=== PATIENT | male | born 1940 | race Hispanic/Latino ===

== ENCOUNTER → 2019-04-23 | Outpatient (CLI) | payer MEDICARE, OTHER ==
[~2019-04-23] MED LIST: FLOMAX0.4 MG PO; OMEPRAZOLE40 MG PO
--- NOTE | 2019-04-23 20:06 | Diagnostic Imaging Report ---
Solid-phase gastric emptying study Reason for examination: K14.0 Abdominal bloating The protocol used for this study is based on the Consensus Recommendations for Gastric Scintigraphy by the [place] [employer] and the Society of [employer]. Clinical information: The patient is not diabetic. The patient has not had previous gastrointestinal surgery other than cholecystectomy in 2016. The patient is not on any medications expected to affect gastric motility. The patient has been fasting for at least 6 hours prior to this exam. Radiopharmaceutical: Tc-99m sulfur colloid 1 mCi Report: The radiopharmaceutical was added to 1/2 cup egg whites that were then prepared and served with 2 pieces of white bread toasted, 30 grams of jam and 4 ounces of water. The patient took 90% of the meal. Images were obtained of the abdomen in the anterior and posterior projections at 10 minutes post the meal and at 2 and 3 hours. Uptake was determined from the geometric mean of the anterior and posterior counts and the counts were corrected for decay of the radiolabel. The percent gastric retention of the labeled meal at: 1 hour measurement was not obtained due to technical issues but presumably greater than 30% based on the 2-hour measurement. 2 hours was 30% (normal <60%) 3 hours was 3% (normal <30%) 4 hour measurement not obtained because gastric retention was less than 10% at 3 hours. Impression: The pattern of gastric emptying is normal. The findings do not support the clinical diagnosis of gastroparesis. Signed by: Dr. Lorena Enamorado M.D. on 04/23/2019 8:03 PM
== END ==
LOC: NM 08:44
PROVIDERS: ATTEND Internal Medicine Gastroenterology
DX: R10.13 Epigastric pain (principal); R14.0 Abdominal distension (gaseous); I10 Essential (primary) hypertension; Z71.3 Dietary counseling and surveillance; F17.200 Nicotine dependence, unspecified, uncomplicated
CPT/HCPCS: 78264; A9541

== ENCOUNTER 2019-05-13 16:41 | Inpatient (IN) | payer MEDICARE, OTHER ==
[~2019-05-13] VITALS: Ht 165.1 cm; Wt 71.2 kg
[~2019-05-13 16:41] MED LIST changes: +AMLODIPINE PO; +ASPIR 8181 MG PO; +ATORVASTATIN CA20 MG PO; +BACLOFEN10 MG PO; +DECARA25000 UNIT PO; +GABAPENTIN300 MG PO; +LOSARTAN POTAS100 MG PO; +LYRICA100 MG PO; +LYRICA50 MG PO; +METHOTREXATE2.5 MG PO; +PANTOPRAZOLE SO40 MG PO; +PREDNISONE5 MG PO; +RANITIDINE HCL300 MG PO; +TYLENOL WITH C1 EACH PO
--- OUTSIDE RECORDS SUMMARY | 2019-05-13 16:51 | XMS REPORT | Clinical Summary ---
Author Author [facility] Address Unknown Phone Unavailable Care Team Providers Care Customer Project Manager Name Role Phone Kartik Mary MD PCP Allergies No Known Allergies Medications End Date Status Medication Sig Dispensed Refills Start Date Active amLODIPine (NORVASC) 5 MG TK 1 T PO QD 3 tablet 6 Active atorvastatin (LIPITOR) 20 TK 1 T PO 5 MG tablet ONCE D 6 Active tamsulosin (FLOMAX) 0.4 TK 1 C PO D 3 mg capsule,extended 6 release 24hr Active SPIRIVA RESPIMAT 2.5 INHALE 2 5 mcg/actuation mist PUFFS ONCE D 6 Active sucralfate (CARAFATE) 1 Take 1 tablet 0 gram tablet by mouth 4 6 (four) times a day. Active losartan (COZAAR) 100 MG Take 100 mg 0 tablet by mouth daily. Active pantoprazole (PROTONIX) TK 1 T PO D 1 40 MG EC tablet 7 Active DECARA 50,000 unit TK 1 C PO 3 capsule 3 capsuleIndications: ONCE A MONTH 7 Lumbar spondylosis with myelopathy, Neuropathy, Rheumatoid arthritis involving multiple sites with positive rheumatoid factor (HCC), Encounter for monitoring of methotrexate therapy, Pulmonary interstitial fibrosis (HCC), Arterial insufficiency of lower extremity (HCC) Active baclofen (LIORESAL) 10 MG TAKE 1 TO 2 180 tablet 0 tabletIndications: TABLETS BY 8 Rheumatoid arthritis MOUTH involving multiple sites NEEDED FOR with positive rheumatoid MUSCLE SPASMS factor (HCC), Encounter for monitoring of methotrexate therapy, Pulmonary interstitial fibrosis (HCC), Epigastric pain, Weight loss, Poor appetite, Neuropathy, Lumbar spondylosis with myelopathy, Arterial insufficiency of lower extremity (HCC), Bilateral hip joint arthritis, Sacroiliac joint pain, Claudication of calf muscles (HCC), Bilateral primary osteoarthritis of hip Active acetaminophen-codeine Take 1 tablet 120 tablet 2 (TYLENOL WITH CODEINE #3) by mouth 8 300-30 mg per every 6 (six) tabletIndications: hours as Rheumatoid arthritis needed for involving multiple sites moderate pain with positive rheumatoid for up to 90 factor (HCC), Encounter days. for monitoring of methotrexate therapy, Pulmonary interstitial fibrosis (HCC), Epigastric pain, Weight loss, Poor appetite, Neuropathy, Lumbar spondylosis with myelopathy, Arterial insufficiency of lower extremity (HCC), Bilateral hip joint arthritis, Sacroiliac joint pain, Claudication of calf muscles (HCC), Bilateral primary osteoarthritis of hip Active methotrexate 2.5 MG 6 tabs weekly 0 tablet every Sunday Active albuterol (PROAIR Inhale 2 0 HFA,PROVENTIL puffs every 6 HFA,VENTOLIN HFA) 90 (six) hours mcg/actuation inhaler as needed for wheezing. Active acetaminophen-codeine TK 1 T PO Q 2 (TYLENOL WITH CODEINE #3) 6 H PRN P 9 300-30 mg per tablet Active predniSONE (DELTASONE) 20 Take 20 mg by 0 mg tablet mouth 2 (two) 9 times a day. For 5 days 06/10/2019 Active megestrol (MEGACE) 400 SHAKE LIQUID 300 mL 0 mg/10 mL (40 mg/mL) AND TAKE 10 9 suspensionIndications: ML(400 MG) BY Rheumatoid arthritis MOUTH DAILY involving multiple sites with positive rheumatoid factor (HCC), Encounter for monitoring of methotrexate therapy, Pulmonary interstitial fibrosis (HCC), Epigastric pain, Weight loss, Poor appetite, Neuropathy Active LYRICA 100 mg capsule TK 1 C PO BID 2 9 Active LINZESS 145 mcg capsule TK ONE C PO 3 QD 30 MINUTES 9 PRIOR TO FIRST MEAL. Active aspirin (ECOTRIN) 81 MG TK 1 T PO QD 2 enteric coated tablet 9 05/01/2019 Discontinued aspirin 81 mg chewable Chew 81 mg 0 tablet daily. 07/17/2018 meloxicam (MOBIC) 15 mg Take 1 tablet 30 tablet 0 tablet (15 mg total) 7 by mouth daily. 01/22/2019 Discontinued calcium citrate-vitamin Take 1 tablet 0 D3 (CITRACAL+D) 315-200 by mouth 2 mg-unit per tablet (two) times a day. 01/14/2019 Discontinued megestrol (MEGACE) 40 MG Take 40 mg by 0 tablet mouth daily. 07/31/2018 Discontinued fluticasone (FLONASE) 50 2 sprays by 0 mcg/actuation nasal spray Each Nare route daily. 07/31/2018 Discontinued nabumetone (RELAFEN) 750 Take 1 tablet 60 tablet 11 MG tablet (750 mg 7 total) by mouth 2 (two) times a day. 07/31/2018 Discontinued megestrol (MEGACE) 400 daily. 1 mg/10 mL (40 mg/mL) 7 suspension 07/31/2018 Discontinued omega 4-sah-jap-fish oil Take 1,200 mg 90 capsule 1 1,200 (144-216) mg by mouth 7 capsuleIndications: daily. Rheumatoid arthritis involving multiple sites with positive rheumatoid factor (HCC), Bilateral hip joint arthritis, Encounter for monitoring of methotrexate therapy, Sacroiliac joint pain, Claudication of calf muscles (HCC), Arterial insufficiency of lower extremity (HCC) 06/06/2018 Discontinued celecoxib (CeleBREX) 100 Take 1 180 capsule 0 MG capsuleIndications: capsule (100 8 Rheumatoid arthritis mg total) by involving multiple sites mouth every with positive rheumatoid 12 (twelve) factor (HCC), Bilateral hours as primary osteoarthritis of needed for hip, Arterial mild pain for insufficiency of lower up to 90 extremity (HCC), days. Bilateral hip joint arthritis 06/25/2018 Discontinued methotrexate 2.5 MG Take 6 tabs 72 tablet 0 tabletIndications: weekly . 8 Rheumatoid arthritis involving multiple sites with positive rheumatoid factor (HCC), Encounter for monitoring of methotrexate therapy, Neuropathy, Lumbar spondylosis with myelopathy, Pulmonary interstitial fibrosis (HCC), Arterial insufficiency of lower extremity (HCC), Bilateral hip joint arthritis, Sacroiliac joint pain, Claudication of calf muscles (HCC), Bilateral primary osteoarthritis of hip 06/25/2018 Discontinued acetaminophen-codeine Take 1 tablet 120 tablet 2 (TYLENOL WITH CODEINE #3) by mouth 8 300-30 mg per every 6 (six) tabletIndications: hours as Rheumatoid arthritis needed for involving multiple sites moderate pain with positive rheumatoid for up to 90 factor (HCC), Encounter days. for monitoring of methotrexate therapy, Pulmonary interstitial fibrosis (HCC), Epigastric pain, Weight loss, Poor appetite, Neuropathy, Lumbar spondylosis with myelopathy, Arterial insufficiency of lower extremity (HCC), Bilateral hip joint arthritis, Sacroiliac joint pain, Claudication of calf muscles (HCC), Bilateral primary osteoarthritis of hip 01/22/2019 Discontinued folic acid (FOLVITE) 1 MG Take 2 180 tablet 3 tabletIndications: tablets (2 mg 8 Rheumatoid arthritis total) by involving multiple sites mouth once with positive rheumatoid daily. factor (HCC), Encounter for monitoring of methotrexate therapy, Pulmonary interstitial fibrosis (HCC), Epigastric pain, Weight loss, Poor appetite, Neuropathy, Lumbar spondylosis with myelopathy, Arterial insufficiency of lower extremity (HCC), Bilateral hip joint arthritis, Sacroiliac joint pain, Claudication of calf muscles (HCC), Bilateral primary osteoarthritis of hip 06/27/2018 Discontinued megestrol (MEGACE) 400 SHAKE LIQUID 300 mL 0 mg/10 mL (40 mg/mL) AND TAKE 10 8 suspensionIndications: ML(400 MG) BY Rheumatoid arthritis MOUTH DAILY involving multiple sites with positive rheumatoid factor (HCC), Encounter for monitoring of methotrexate therapy, Pulmonary interstitial fibrosis (HCC), Epigastric pain, Weight loss, Poor appetite, Neuropathy 07/28/2018 Discontinued methotrexate 2.5 MG TAKE 6 72 tablet 0 tabletIndications: TABLETS BY 8 Rheumatoid arthritis MOUTH WEEKLY involving multiple sites with positive rheumatoid factor (HCC), Encounter for monitoring of methotrexate therapy, Neuropathy, Lumbar spondylosis with myelopathy, Pulmonary interstitial fibrosis (HCC), Arterial insufficiency of lower extremity (HCC), Bilateral hip joint arthritis, Sacroiliac joint pain, Claudication of calf muscles (HCC) 01/14/2019 Discontinued celecoxib (CeleBREX) 100 TAKE ONE 180 capsule 0 MG capsuleIndications: CAPSULE BY 8 Rheumatoid arthritis MOUTH EVERY involving multiple sites 12 HOURS with positive rheumatoid NEEDED FOR factor (HCC), Bilateral MILD PAIN FOR primary osteoarthritis of UP TO 90 DAYS hip, Arterial insufficiency of lower extremity (HCC), Bilateral hip joint arthritis 07/28/2018 megestrol (MEGACE) 400 SHAKE LIQUID 300 mL 0 mg/10 mL (40 mg/mL) AND TAKE 10 8 suspensionIndications: ML(400 MG) BY Rheumatoid arthritis MOUTH DAILY involving multiple sites with positive rheumatoid factor (HCC), Encounter for monitoring of methotrexate therapy, Pulmonary interstitial fibrosis (HCC), Epigastric pain, Weight loss, Poor appetite, Neuropathy 09/18/2018 Discontinued pregabalin (LYRICA) 75 MG Take 1 270 capsule 0 capsule capsule (75 8 mg total) by mouth 3 (three) times a day for 90 days. 07/31/2018 Discontinued methotrexate 2.5 MG TAKE 6 72 tablet 0 tabletIndications: TABLETS BY 8 Rheumatoid arthritis MOUTH WEEKLY involving multiple sites with positive rheumatoid factor (HCC), Encounter for monitoring of methotrexate therapy, Neuropathy, Lumbar spondylosis with myelopathy, Pulmonary interstitial fibrosis (HCC), Arterial insufficiency of lower extremity (HCC), Bilateral hip joint arthritis, Sacroiliac joint pain, Claudication of calf muscles (HCC) 07/31/2018 Discontinued methotrexate 2.5 MG TAKE 6 72 tablet 0 tabletIndications: TABLETS BY 8 Rheumatoid arthritis MOUTH WEEKLY involving multiple sites with positive rheumatoid factor (HCC), Encounter for monitoring of methotrexate therapy, Neuropathy, Lumbar spondylosis with myelopathy, Pulmonary interstitial fibrosis (HCC), Arterial insufficiency of lower extremity (HCC), Bilateral hip joint arthritis, Sacroiliac joint pain, Claudication of calf muscles (HCC) 03/17/2019 pregabalin (LYRICA) 100 Take 1 60 capsule 5 MG capsule capsule (100 8 mg total) by mouth 2 (two) times a day for 180 days. 03/10/2019 Discontinued megestrol (MEGACE) 400 SHAKE LIQUID 300 mL 0 mg/10 mL (40 mg/mL) AND TAKE 10 8 suspensionIndications: ML(400 MG) BY Rheumatoid arthritis MOUTH DAILY involving multiple sites with positive rheumatoid factor (HCC), Encounter for monitoring of methotrexate therapy, Pulmonary interstitial fibrosis (HCC), Epigastric pain, Weight loss, Poor appetite, Neuropathy 10/26/2018 azithromycin (ZITHROMAX Take 2 6 tablet 0 Z-TRELL) 250 MG tablet tablets the 8 first day, then 1 tablet daily for 4 days. 10/27/2018 methylPREDNISolone follow 21 tablet 0 (MEDROL, TRELL,) 4 mg package 8 tablet directions 11/21/2018 albuterol (PROAIR Inhale 2 1 Inhaler 0 HFA,PROVENTIL puffs every 4 8 HFA,VENTOLIN HFA) 90 (four) hours mcg/actuation inhaler as needed for wheezing for up to 30 days. Please dispense with a spacer 02/08/2019 Discontinued levoFLOXacin (LEVAQUIN) Take 750 mg 0 750 MG tablet by mouth 9 daily. X 14 days 02/15/2019 metroNIDAZOLE (FLAGYL) Take 1 tablet 14 tablet 0 500 MG tablet (500 mg 9 total) by mouth 2 (two) times a day for 7 days. 02/15/2019 ciprofloxacin (CIPRO) 500 Take 1 tablet 14 tablet 0 MG tablet (500 mg 9 total) by mouth 2 (two) times a day for 7 days. Active Problems Problem Noted Date Atheroscler of [place] artery of both legs with intermit claudication 01/22/2019 Atherosclerosis of [place] artery of both lower extremities with 12/24/2018 intermittent claudication Overview: Added automatically from request for surgery [id number] Other chronic pain 12/21/2017 Claudication of calf muscles 09/25/2017 PAD (peripheral artery disease) 09/25/2017 Myalgia 08/21/2017 Bilateral primary osteoarthritis of hip 08/02/2017 Bilateral hip pain 08/02/2017 [place] speaking patient 08/02/2017 Non-[place]amib[place] speaking patient 08/02/2017 Bilateral hip joint arthritis 07/31/2017 Sacroiliac joint pain 07/31/2017 Lumbar spondylosis with myelopathy 03/19/2017 Poor appetite 03/19/2017 Sensory neuropathy 03/19/2017 Weight loss 10/06/2016 Epigastric pain 10/06/2016 Rheumatoid arthritis involving multiple sites with positive rheumatoid 06/02/2016 factor Encounter for monitoring of methotrexate therapy 06/02/2016 Arterial insufficiency of lower extremity 06/02/2016 Pulmonary interstitial fibrosis 06/02/2016 Cigarette smoker 06/02/2016 Bilateral lumbar radiculopathy Idiopathic progressive polyneuropathy Encounters Care Team Description Date Type Specialty Donaldo Willams MD Chronic bilateral low back pain with left-sided sciatica 05/05/2019 Hospital Radiology Encounter Donaldo Willams MD Chronic bilateral low back pain with left-sided sciatica (Primary Dx); PAD (peripheral artery disease) (HCC) 05/01/2019 Office Visit Cardiovascular Selwyn Black MD Neuropathy (Primary Dx) 04/24/2019 Transcribe Neurology Orders Iron Blackburn MA 04/15/2019 Telephone Cardiovascular Chaparrita Lopez MD Rheumatoid arthritis involving multiple sites with positive rheumatoid factor (HCC); Encounter for monitoring of methotrexate therapy; Pulmonary interstitial fibrosis (HCC); Epigastric pain; Weight loss; Poor appetite; Neuropathy 03/10/2019 Refill Rheumatology Ashwini Soria 02/27/2019 Telephone Physical Therapy Abimbola Morillo MD Degeneration of lumbar intervertebral disc (Primary Dx) 02/27/2019 Transcribe Physical Therapy Orders Chaparrita Lopez MD 02/18/2019 Refill Rheumatology Chaparrita Lopez MD 02/13/2019 Refill Rheumatology Axel Rivera MD Colitis (Primary Dx); Pain in both lower legs; Claudication of both lower extremities (HCC) 02/08/2019 Emergency Emergency Medicine Margarito Billingsley NP Bismuth, Jean, MD PAD (peripheral artery disease) ([facility]); Atherosclerosis of [place] artery of both lower extremities with intermittent claudication (HCC) 02/07/2019 Hospital Radiology Encounter Margarito Billingsley NP Bismuth, Jean, MD Pain and swelling of lower leg, right 02/07/2019 Hospital Radiology Encounter Margarito Billingsley NP PAD (peripheral artery disease) ([facility]) (Primary Dx); Atherosclerosis of [place] artery of both lower extremities with intermittent claudication ([facility]); Pain and swelling of lower leg, right; Claudication of calf muscles (HCC) 02/07/2019 Office Visit Cardiovascular Kristine Adan MA Atherosclerosis of [place] artery of both lower extremities with intermittent claudication (HCC) (Primary Dx); PAD (peripheral artery disease) (HCC) 02/07/2019 Orders Only Cardiovascular Kristine Adan MA PAD (peripheral artery disease) ([facility]) (Primary Dx); Atherosclerosis of [place] artery of both lower extremities with intermittent claudication (HCC) 02/07/2019 Orders Only Cardiovascular Donaldo Willams MD 01/22/2019 Office Visit General Surgery Abbe Walker Jr., MD 01/22/2019 Anesthesia General Surgery Event Donaldo Willams MD LEFT LOWER EXTREMITY ANGIOGRAM WITH SFA, POPLITEAL, AND ILIAC RECANALIZATION AND STENTING 01/22/2019 Surgery General Surgery Donaldo Willams MD 01/22/2019 Office Visit General Surgery Donaldo Willams MD Atherosclerosis of [place] artery of both lower extremities with intermittent claudication (HCC) 01/22/2019 Hospital General Surgery Encounter Donaldo Willams MD Atherosclerosis of [place] artery of both lower extremities with intermittent claudication (HCC) 01/21/2019 Pre-Admit Pre-Admission Testing Testing Appointment Abimbola Morillo MD Age-related osteoporosis without current pathological fracture 01/20/2019 Hospital Radiology Encounter Elham Francisco FNP-C 01/14/2019 Anesthesia Gastroenterology Event Lino Domínguez MD BRONCHOSXOPY with bronchial lavage and biopys 01/14/2019 Surgery Gastroenterology Lino Domínguez MD Atelectasis of right lung (Primary Dx); Chronic pneumonia; Pneumonia 01/14/2019 Hospital Gastroenterology Encounter Althea Flores MD Sensory neuropathy (Primary Dx) 01/13/2019 Office Visit Neurology Abimbola Morillo MD Seropositive rheumatoid arthritis (HCC) 01/10/2019 Hospital Radiology Encounter Abimbola Morillo MD Seropositive rheumatoid arthritis (HCC) 01/10/2019 Hospital Radiology Encounter Abimbola Morillo MD Seropositive rheumatoid arthritis (HCC) 01/10/2019 Hospital Radiology Encounter Abimbola Morillo MD Seropositive rheumatoid arthritis (HCC) 01/10/2019 Hospital Radiology Encounter Abimbola Morillo MD Seropositive rheumatoid arthritis (HCC) (Primary Dx) 01/10/2019 Transcribe Radiology Orders Amirah Gamez, KRAIG 12/25/2018 Telephone Cardiovascular Amirah Gamez, RN Atherosclerosis of [place] artery of both lower extremities with intermittent claudication (HCC) (Primary Dx) 12/24/2018 Prep for Cardiovascular Surgery Amirah Gamez, RN Atherosclerosis of [place] artery of both lower extremities with intermittent claudication (HCC) (Primary Dx) 12/24/2018 Orders Only Cardiovascular Lino Domínguez MD Aspiration pneumonia, unspecified aspiration pneumonia type, unspecified laterality, unspecified part of lung (HCC) 12/20/2018 Hospital Radiology Encounter Donaldo Willams MD PAD (peripheral artery disease) ([facility]) (Primary Dx) 12/19/2018 Office Visit Cardiovascular Iron Blackburn MA 12/09/2018 Telephone Cardiovascular Donaldo Willams MD PAD (peripheral artery disease) ([facility]); Atherosclerosis of [place] artery of both lower extremities with intermittent claudication (HCC) 11/29/2018 Hospital Radiology Encounter Lino Domínguez MD Obstructive chronic bronchitis without exacerbation (HCC) 11/29/2018 Hospital Radiology Encounter Lino Domínguez MD Obstructive chronic bronchitis without exacerbation (HCC) (Primary Dx); Aspiration pneumonia, unspecified aspiration pneumonia type, unspecified laterality, unspecified part of lung (HCC) 11/29/2018 Transcribe Access Orders Donaldo Willams MD Atherosclerosis of [place] artery of both lower extremities with intermittent claudication (HCC) (Primary Dx); PAD (peripheral artery disease) ([facility]) 11/28/2018 Office Visit Cardiovascular Kristine Adan MA Atherosclerosis of [place] artery of both lower extremities with intermittent claudication (HCC) (Primary Dx); PAD (peripheral artery disease) ([facility]) 11/28/2018 Orders Only Cardiovascular Donaldo Willams MD 11/28/2018 Abstract Cardiovascular Kristine Adan MA Atherosclerosis of [place] artery of both lower extremities with intermittent claudication ([facility]) (Primary Dx); PAD (peripheral artery disease) ([facility]) 11/26/2018 Orders Only Cardiovascular Amirah Gamez RN 11/07/2018 Telephone Cardiovascular Althea Flores MD PAD (peripheral artery disease) ([facility]) (Primary Dx); Sensory neuropathy; Myalgia 10/25/2018 Office Visit Neurology Carolyn Shirley DO Hypertension, unspecified type (Primary Dx); Acute pneumonitis; COPD exacerbation ([facility]); Nonintractable headache, unspecified chronicity pattern, unspecified headache type 10/22/2018 Emergency Emergency Medicine - 10/23/2018 10/22/2018 Travel Chaparrita Lopez MD Rheumatoid arthritis involving multiple sites with positive rheumatoid factor ([facility]); Encounter for monitoring of methotrexate therapy; Pulmonary interstitial fibrosis ([facility]); Epigastric pain; Weight loss; Poor appetite; Neuropathy 10/18/2018 Refill Rheumatology Althea Flores MD Sensory neuropathy 10/07/2018 Hospital Radiology Encounter Althea Flores MD Sensory neuropathy (Primary Dx) 09/18/2018 Office Visit Neurology Althea Flores MD Myalgia (Primary Dx); Neuropathy 09/05/2018 Procedure visit Neurology Althea Flores MD Neuropathy (Primary Dx) 07/31/2018 Office Visit Neurology Chaparrita Lopez MD Rheumatoid arthritis involving multiple sites with positive rheumatoid factor; Encounter for monitoring of methotrexate therapy; Neuropathy; Lumbar spondylosis with myelopathy; Pulmonary interstitial fibrosis; Arterial insufficiency of lower extremity; Bilateral hip joint arthritis; Sacroiliac joint pain; Claudication of calf muscles 07/28/2018 Refill Rheumatology Catherine Odom MA 07/12/2018 Refill Rheumatology Chaparrita Lopez MD Rheumatoid arthritis involving multiple sites with positive rheumatoid factor; Encounter for monitoring of methotrexate therapy; Lumbar spondylosis with myelopathy; Neuropathy 06/29/2018 Hospital Radiology Encounter Chaparrita Lopez MD Rheumatoid arthritis involving multiple sites with positive rheumatoid factor; Encounter for monitoring of methotrexate therapy; Lumbar spondylosis with myelopathy; Neuropathy 06/29/2018 Hospital Radiology Encounter Chaparrita Lopez MD Rheumatoid arthritis involving multiple sites with positive rheumatoid factor; Encounter for monitoring of methotrexate therapy; Pulmonary interstitial fibrosis; Epigastric pain; Weight loss; Poor appetite; Neuropathy 06/27/2018 Refill Rheumatology Chaparrita Lopez MD Rheumatoid arthritis involving multiple sites with positive rheumatoid factor (Primary Dx); Encounter for monitoring of methotrexate therapy; Weight loss; Lumbar spondylosis with myelopathy; Neuropathy; Myalgia; Claudication of calf muscles; PAD (peripheral artery disease); Pulmonary interstitial fibrosis; Epigastric pain; Poor appetite; Arterial insufficiency of lower extremity; Bilateral hip joint arthritis; Sacroiliac joint pain; Bilateral primary osteoarthritis of hip 06/25/2018 Office Visit Rheumatology Chaparrita Lopez MD Rheumatoid arthritis involving multiple sites with positive rheumatoid factor; Bilateral primary osteoarthritis of hip; Arterial insufficiency of lower extremity; Bilateral hip joint arthritis 06/06/2018 Refill Rheumatology Catherine Odom MA Seropositive rheumatoid arthritis of multiple sites (Primary Dx); Idiopathic progressive polyneuropathy; Primary osteoarthritis of both hips; Intermittent claudication 05/16/2018 Orders Only Rheumatology Catherine Odom MA 05/15/2018 Telephone Rheumatology after 05/12/2018 Family History Medical History Relation Name Comments Cancer Brother throat ca Hypertension Father Stroke Father Cancer Mother Hypertension Mother Relation Name Status Comments Brother Father Mother Social History Date Tobacco Use Types Packs/Day Years Used Current Every Day Smoker Cigarettes 0.5 50 Smokeless Tobacco: Current User Tobacco Cessation: Ready to Quit: Yes; Counseling Given: Yes Alcohol Use Drinks/Week oz/Week Comments No Alcohol Habits Answer Date Recorded How often do you have a drink containing alcohol? Never 01/13/2019 How many drinks containing alcohol do you have on Not asked a typical day when you are drinking? How often do you have six or more drinks on one Not asked occasion? Sex Assigned at Date Recorded Not on file Industry Job Start Date Occupation Not on file Not on file Not on file Travel End Travel History Travel Start No recent travel history available. Last Filed Vital Signs Time Taken Vital Sign Reading 05/01/2019 10:36 AM CDT Blood Pressure 137/62 05/01/2019 10:36 AM CDT Pulse 66 02/08/2019 7:30 PM CDT Temperature 36.8 C (98.2 F) 05/01/2019 10:36 AM CDT Respiratory Rate 20 05/01/2019 10:36 AM CDT Oxygen Saturation 100% - Inhaled Oxygen - Concentration 05/05/2019 5:03 PM CDT Weight 66.7 kg (147 lb) 02/08/2019 2:52 PM CDT Height 157.5 cm (5' 2") 02/08/2019 2:52 PM CDT Body Mass Index 26.89 Plan of Treatment Care Team Description Date [place] [address] [facility] [address] [place] [address] [phone] 05/16/2019 [place] [address] [facility] [address] [place] [address] [phone] 05/19/2019 Office [place] [address] [facility] [address] [place] [address] [phone] Nicolas Krishnan PT 05/20/2019 Office Visit Physical Therapy Health Maintenance Due Date Last Done Comments SHINGLES VACCINES (#1) 1988 65+ PNEUMOCOCCAL VACCINE 2003 (1 of 2 - PCV13) INFLUENZA VACCINE 06/05/2019 Implants Device Identifier Shelf Expiration Date Model / Serial / Lot Implanted Type Area Manufactur er 11/28/2019 [id number] / / [id number] Stent [employer] Eluted 6fr 6 Surgical N/A: N/A COOK X 140mm 0.035in - [id number] Stents PERIPHERAL Implanted: Qty: 1 on 01/22/2019 by Donaldo Barraza MD ON 05/06/2020 [id number] / / [id number] Stent [employer] Eluted 6fr 6 X Surgical N/A: N/A COOK 100mm .035in - [id number] Stents PERIPHERAL Implanted: Qty: 1 on 01/22/2019 by Donaldo Barraza MD ON 12/05/2019 [id number] / / [id number] Stent [employer] Eluted 6fr 8 X Surgical N/A: N/A COOK 60mm .035in - [id number] Stents PERIPHERAL Implanted: Qty: 1 on 01/22/2019 by Donaldo Barraza MD ON Procedures Comments Procedure Name Priority Date/Time Associated Diagnosis MRI LUMBAR SPINE W WO Routine 05/05/2019 Chronic bilateral low CONTRAST 5:55 PM CDT back pain with left-sided sciatica POC CREATININE Routine 05/05/2019 5:04 PM CDT ESTIMATED GFR Routine 05/05/2019 5:04 PM CDT EMG Routine 04/24/2019 Neuropathy 4:[address] ANGIOGRAM ABDOMINAL STAT 02/08/2019 AORTA AND BILATERAL 4:35 PM CDT ILIOFEMORAL RUNOFF W WO CONTRAST ESTIMATED GFR STAT 02/08/2019 3:25 PM CDT COMPREHENSIVE METABOLIC STAT 02/08/2019 PANEL 3:25 PM CDT HC COMPLETE BLD COUNT STAT 02/08/2019 W/AUTO DIFF 3:25 PM CDT US DUPLEX ARTERIAL LOWER STAT 02/07/2019 PAD (peripheral artery EXTREMITY BILATERAL 4:00 PM CDT disease) (HCC) Atherosclerosis of [place] artery of both lower extremities with intermittent claudication (HCC) US DUPLEX VENOUS LOWER STAT 02/07/2019 Pain and swelling of EXTREMITY RIGHT 4:00 PM CDT lower leg, right CV HYBRID OR FLUOROSCOPY Routine 01/22/2019 12:09 PM CDT ACTIVATED CLOTTING TIME Routine 01/22/2019 10:46 AM CDT ARTERIAL LINE Routine 01/22/2019 10:44 AM CDT Procedure Note - Tanisha Mancia MD - 01/22/2019 10:44 AM CDT Arterial line Performed by: Tanisha Mancia MD Authorized by: Tanisha Mancia MD Patient Location: OR Start Time: 01/22/2019 10:36 AM End Time: 01/22/2019 10:38 AM Staff: Anesthesio logist: Tanisha Mancia MD Other Staff: Felicita Mathew Performed by: Anesthesio logist Pre-proced ure: patient identified , IV checked, site and side verified, risks and benefits discussed, procedure verified, surgical consent complete, patient position confirmed, monitors and equipment checked and pre-op evaluation complete MSBT: antiseptic used, all elements of maximal sterile barrier technique followed, hand hygiene performed, cap/gown used by other personnel and solutions labeled Indication s: Indication s: multiple ABGs and hemodynami c monitoring Anesthesia : Anesthesia : General Procedure Details: Arterial Line placement: Placed pre-induct ion Line placement site: Radial Line placement side: Right Arterial line gauge: 20 G Number of attempts: 1 Ultrasound guidance used: Yes Post-proc edure: Post-proce dure: Sterile dressing applied Post procedure circulatio n, sensation, movement: Normal Patient tolerance: Patient tolerated the procedure well with no immediate complicati ons SD AN ELECTIVE Routine 01/22/2019 ENDOTRACHEAL AIRWAY 10:43 AM CDT Procedure Note - Tanisha Mancia MD - 01/22/2019 10:43 AM CDT Airway Date/Time: 01/22/2019 10:33 AM Performed by: Tanisha Mancia MD Authorized by: Tanisha Mancia MD Location: OR Urgency: Elective Difficult Airway: No Anesthesio logist: Tanisha Mancia MD Resident/C RNA/AA: Jani Boswell CRNA Other Anesthesia Staff: Felicita Mathew Performed by: anesthesio logist Preoxygena danny with 100% O2: Yes C-spine Precaution s Maintained Throughout : Yes Mask Ventilatio n: Easy mask Final Airway Type: Endotrache al airway Final Endotrache al Airway: ETT Cuffed: Yes Technique Used: Direct laryngosco py Devices/Me thods Used in Placement: Intubatin g stylet Insertion Site: Oral Blade Type: Nathan Laryngosco pe Blade/Vide olaryngosc ope Blade Size: 2 ETT Size (mm): 7.0 Cuff at minimum occlusion pressure: Yes Measured from: Gums ETT to Gums (cm): 23 Placement Verified by: CO2 detection Laryngosc opic view: Grade I - full view of glottis Rapid Sequence Induction (RSI): No Modified RSI: No Number of Attempts at Approach: 1 atraumati c ACTIVATED CLOTTING TIME Routine 01/22/2019 10:36 AM CDT ACTIVATED CLOTTING TIME Routine 01/22/2019 10:27 AM CDT POC BLOOD GAS, ARTERIAL Routine 01/22/2019 AND LYTES 9:54 AM CDT ACTIVATED CLOTTING TIME Routine 01/22/2019 9:43 AM CDT CV HYBRID OR FLUOROSCOPY Routine 01/22/2019 9:37 AM CDT PREPARE RBC Routine 01/21/2019 1:15 PM CDT TYPE AND SCREEN Routine 01/21/2019 Atherosclerosis of [place] 1:15 PM CDT artery of both lower extremities with intermittent claudication (HCC) ESTIMATED GFR Routine 01/21/2019 1:15 PM CDT HC COMPLETE BLD COUNT Routine 01/21/2019 Atherosclerosis of [place] W/AUTO DIFF 1:15 PM CDT artery of both lower extremities with intermittent claudication (HCC) BASIC METABOLIC PANEL Routine 01/21/2019 Atherosclerosis of [place] 1:15 PM CDT artery of both lower extremities with intermittent claudication (HCC) PROTHROMBIN TIME WITH INR Routine 01/21/2019 Atherosclerosis of [place] 1:15 PM CDT artery of both lower extremities with intermittent claudication (HCC) PARTIAL THROMBOPLASTIN Routine 01/21/2019 Atherosclerosis of [place] TIME (PTT) 1:15 PM CDT artery of both lower extremities with intermittent claudication (HCC) URINE CULTURE Routine 01/21/2019 1:00 PM CDT URINALYSIS SCREEN AND Routine 01/21/2019 Atherosclerosis of [place] MICROSCOPY, WITH REFLEX 12:36 PM CDT artery of both lower TO CULTURE extremities with intermittent claudication (HCC) BONE DENSITY Routine 01/20/2019 Age-related osteoporosis 11:02 AM CDT without current pathological fracture BAL CELL COUNT AND Timed 01/14/2019 Pneumonia DIFFERENTIAL 8:55 AM CDT RESPIRATORY CULTURE Timed 01/14/2019 8:55 AM CDT GRAM STAIN Timed 01/14/2019 8:55 AM CDT RESPIRATORY PATHOGEN Timed 01/14/2019 PANEL 8:55 AM CDT FUNGUS SMEAR Timed 01/14/2019 Pneumonia 8:55 AM CDT AFB CULTURE Timed 01/14/2019 Pneumonia 8:55 AM CDT NOCARDIA CULTURE Timed 01/14/2019 Pneumonia 8:55 AM CDT LEGIONELLA CULTURE Timed 01/14/2019 Pneumonia 8:55 AM CDT AFB STAIN Timed 01/14/2019 Pneumonia 8:55 AM CDT FUNGUS CULTURE Timed 01/14/2019 Pneumonia 8:55 AM CDT SURGICAL PATHOLOGY Routine 01/14/2019 REQUEST 8:50 AM CDT CYTOLOGY Routine 01/14/2019 (NON-GYNECOLOGICAL) 8:50 AM CDT REQUEST BAL CELL COUNT AND Timed 01/14/2019 Pneumonia DIFFERENTIAL 8:50 AM CDT GRAM STAIN Timed 01/14/2019 8:50 AM CDT RESPIRATORY CULTURE Timed 01/14/2019 8:50 AM CDT RESPIRATORY PATHOGEN Timed 01/14/2019 PANEL 8:50 AM CDT FUNGUS SMEAR Timed 01/14/2019 Pneumonia 8:50 AM CDT AFB CULTURE Timed 01/14/2019 Pneumonia 8:50 AM CDT NOCARDIA CULTURE Timed 01/14/2019 Pneumonia 8:50 AM CDT LEGIONELLA CULTURE Timed 01/14/2019 Pneumonia 8:50 AM CDT AFB STAIN Timed 01/14/2019 Pneumonia 8:50 AM CDT FUNGUS CULTURE Timed 01/14/2019 Pneumonia 8:50 AM CDT XR CHEST 1 VW PORTABLE STAT 01/14/2019 8:32 AM CDT OR FL < 1 HOUR Routine 01/14/2019 8:10 AM CDT SD AN ELECTIVE Routine 01/14/2019 SUPRAGLOTTIC AIRWAY 7:49 AM CDT Procedure Note - Donny Pozo CRNA - 01/14/2019 7:49 AM CDT Airway Performed by: Donny Pozo CRNA Authorized by: Martínez Radford MD Location: OR Urgency: Elective Difficult Airway: No Resident/C RNA/AA: Donny Pozo CRNA Performed by: resident/C RNA/AA Preoxygena danny with 100% O2: Yes C-spine Precaution s Maintained Throughout : Yes Mask Ventilatio n: Not attempted Final Airway Type: Supraglott ic airway Final LMA: I-Gel LMA Size: 5 Number of Attempts at Approach: 1 BRONCHOSCOPY 01/14/2019 Pneumonia 7:30 AM CDT XR WRIST 2 VW BILATERAL Routine 01/10/2019 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) XR HANDS 3 VW BILATERAL Routine 01/10/2019 Seropositive rheumatoid 2:24 PM [employer] arthritis (HCC) XR ANKLE 2 VW BILATERAL Routine 01/10/2019 Seropositive rheumatoid 2:24 PM [employer] arthritis (HCC) XR FOOT 2 VW BILATERAL Routine 01/10/2019 Seropositive rheumatoid 2:23 PM [employer] arthritis (HCC) CT CHEST WO CONTRAST STAT 12/20/2018 Aspiration pneumonia, 2:46 PM [employer] unspecified aspiration pneumonia type, unspecified laterality, unspecified part of lung (HCC) CT ANGIOGRAM ABDOMINAL Routine 11/29/2018 PAD (peripheral artery AORTA AND BILATERAL 12:48 PM [employer] disease) (HCC) ILIOFEMORAL RUNOFF W WO Atherosclerosis of [place] CONTRAST artery of both lower extremities with intermittent claudication (HCC) ESTIMATED GFR Routine 11/29/2018 11:14 AM [employer] POC CREATININE Routine 11/29/2018 11:14 AM [employer] XR CHEST 2 VW Routine 11/29/2018 Obstructive chronic 10:35 AM [employer] bronchitis without exacerbation (HCC) US ANKLE BRACHIAL INDEX Routine 11/27/2018 PAD (peripheral artery 3:45 PM [employer] disease) (HCC) Atherosclerosis of [place] artery of both lower extremities with intermittent claudication (HCC) US DUPLEX ARTERIAL LOWER Routine 11/27/2018 PAD (peripheral artery EXTREMITY BILATERAL 3:45 PM [employer] disease) (HCC) Atherosclerosis of [place] artery of both lower extremities with intermittent claudication (HCC) CT HEAD WO CONTRAST STAT 10/22/2018 11:42 PM [employer] RESPIRATORY PATHOGEN Routine 10/22/2018 PANEL 10:00 PM [employer] INFLUENZA ANTIGEN TEST, Routine 10/22/2018 REFLEX NEGATIVE TO RPP 10:00 PM [employer] ECG ED PRELIMINARY Routine 10/22/2018 INTERPRETATION 9:16 PM [employer] XR CHEST 1 VW PORTABLE STAT 10/22/2018 8:08 PM [employer] SMEAR REVIEW STAT 10/22/2018 6:42 PM [employer] ESTIMATED GFR STAT 10/22/2018 6:42 PM [employer] PROTHROMBIN TIME WITH INR STAT 10/22/2018 6:42 PM [employer] PARTIAL THROMBOPLASTIN STAT 10/22/2018 TIME (PTT) 6:42 PM [employer] B NATRIURETIC PEPTIDE STAT 10/22/2018 6:42 PM [employer] TROPONIN STAT 10/22/2018 6:42 PM [employer] COMPREHENSIVE METABOLIC STAT 10/22/2018 PANEL 6:42 PM [employer] HC COMPLETE BLD COUNT STAT 10/22/2018 W/AUTO DIFF 6:42 PM [employer] ECG 12-LEAD STAT 10/22/2018 6:34 PM [employer] IR LUMBAR PUNCTURE Routine 10/07/2018 Sensory neuropathy 1:59 PM [employer] CYTOLOGY Routine 10/07/2018 (NON-GYNECOLOGICAL) 1:40 PM [employer] REQUEST LYME DISEASE REFLEXIVE Routine 10/07/2018 PANEL, CSF 1:40 PM [employer] GLUCOSE LEVEL, CSF Routine 10/07/2018 1:40 PM [employer] PROTEIN, CSF Routine 10/07/2018 1:40 PM [employer] CSF CELL COUNT WITH Routine 10/07/2018 DIFFERENTIAL 1:40 PM [employer] MYELIN BASIC PROTEIN Routine 10/07/2018 1:40 PM [employer] LDH, CSF Routine 10/07/2018 1:40 PM [employer] VDRL, CSF SCREEN Routine 10/07/2018 1:40 PM [employer] IGG SYNTHESIS RATE STUDY Routine 10/07/2018 1:40 PM [employer] MRI LUMBAR SPINE WO Routine 06/29/2018 Rheumatoid arthritis CONTRAST 10:05 AM CDT involving multiple sites with positive rheumatoid factor Encounter for monitoring of methotrexate therapy Lumbar spondylosis with myelopathy Neuropathy XR CHEST 2 VW Routine 06/29/2018 Rheumatoid arthritis 9:59 AM CDT involving multiple sites with positive rheumatoid factor Encounter for monitoring of methotrexate therapy Lumbar spondylosis with myelopathy Neuropathy URINALYSIS, AUTOMATED Routine 06/27/2018 Rheumatoid arthritis WITH MICROSCOPY 12:00 AM CDT involving multiple sites with positive rheumatoid factor Encounter for monitoring of methotrexate therapy Lumbar spondylosis with myelopathy Neuropathy C-REACTIVE PROTEIN Routine 06/27/2018 Rheumatoid arthritis 12:00 AM CDT involving multiple sites with positive rheumatoid factor Encounter for monitoring of methotrexate therapy Lumbar spondylosis with myelopathy Neuropathy SEDIMENTATION RATE Routine 06/27/2018 Rheumatoid arthritis 12:00 AM CDT involving multiple sites with positive rheumatoid factor Encounter for monitoring of methotrexate therapy Lumbar spondylosis with myelopathy Neuropathy COMPREHENSIVE METABOLIC Routine 06/27/2018 Rheumatoid arthritis PANEL 12:00 AM CDT involving multiple sites with positive rheumatoid factor Encounter for monitoring of methotrexate therapy Lumbar spondylosis with myelopathy Neuropathy CBC WITH PLATELET AND Routine 06/27/2018 Rheumatoid arthritis DIFFERENTIAL 12:00 AM CDT involving multiple sites with positive rheumatoid factor Encounter for monitoring of methotrexate therapy Lumbar spondylosis with myelopathy Neuropathy ZZESTIMATED GFR Routine 05/23/2018 9:33 AM CDT SEDIMENTATION RATE Routine 05/23/2018 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 Intermittent claudication C-REACTIVE PROTEIN Routine 05/23/2018 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 Intermittent claudication HC COMPLETE BLD COUNT Routine 05/23/2018 Idiopathic progressive W/AUTO DIFF 9: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 Intermittent claudication COMPREHENSIVE METABOLIC Routine 05/23/2018 Idiopathic progressive PANEL 9: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 No fracture, infection, or bony neoplasm. The paravertebral and paraspinous soft tissues are normal. The visible cord is normal. The cord terminates at T12-L1. Lumbar spine alignment is grossly preserved with normal lordosis without significant subluxation. Degenerative changes: Multilevel disc desiccation and varying degrees of disc height loss. This contributes to straightening of usual lumbar lordosis. No spondylolisthesis. Axial images through the disc spaces demonstrate the following: L1-L2: Diffuse disc bulge without central or foraminal stenosis. L2-L3: Diffuse disc bulge without central or foraminal stenosis. L3-L4: Diffuse disc bulge contributes to mild left foraminal stenosis. L4-L5: Diffuse disc bulge asymmetric to the left, contributing to moderate left foraminal stenosis and mild right foraminal stenosis. No central stenosis. L5-S1: Degenerative disc height loss and bilateral facet hypertrophy, contributing to moderate right and mild left foraminal stenosis. No significant posterior disc disease, spinal canal or neural foraminal stenosis at other visualized levels. IMPRESSION: No acute lumbar abnormality. Multilevel degenerative changes as described above, greatest at L4-5 and L5-S1. [facility]-[id number] Procedure Note Hm Interface, Radiology Results - 05/05/2019 9:54 PM CDT EXAMINATION: MRI LUMBAR SPINE W WO CONTRAST CLINICAL HISTORY: M54.42 Lumbago with sciatica left side, G89.29 Other chronic pain, Radiculopathy 6wks no red flags no prior management, back pain COMPARISON: 06/29/2018 lumbar MRI TECHNIQUE: Multiplanar MRI of the lumbar spine with and without contrast FINDINGS: Vertebral bodies are normal in signal and morphology. No fracture, infection, or bony neoplasm. The paravertebral and paraspinous soft tissues are normal. The visible cord is normal. The cord terminates at T12-L1. Lumbar spine alignment is grossly preserved with normal lordosis without significant subluxation. Degenerative changes: Multilevel disc desiccation and varying degrees of disc height loss. This contributes to straightening of usual lumbar lordosis. No spondylolisthesis. Axial images through the disc spaces demonstrate the following: L1-L2: Diffuse disc bulge without central or foraminal stenosis. L2-L3: Diffuse disc bulge without central or foraminal stenosis. L3-L4: Diffuse disc bulge contributes to mild left foraminal stenosis. L4-L5: Diffuse disc bulge asymmetric to the left, contributing to moderate left foraminal stenosis and mild right foraminal stenosis. No central stenosis. L5-S1: Degenerative disc height loss and bilateral facet hypertrophy, contributing to moderate right and mild left foraminal stenosis. No significant posterior disc disease, spinal canal or neural foraminal stenosis at other visualized levels. IMPRESSION: No acute lumbar abnormality. Multilevel degenerative changes as described above, greatest at L4-5 and L5-S1. [facility]-[id number] Performing Organization Address City/State/Zipcode Phone Number [facility] [address] [place] [address] * Estimated GFR (05/05/2019 5:04 PM CDT) Only the most recent of 5 results within the time period is included. [facility] Estimated GFR 84 mL/min/1.73 m2 SA[facility]ER Comment: [facility] G1 RANCH >=90 Normal or high G2 60-89Mildly decreased [id number] Mildly to moderately decreased [id number] Moderately to severely decreased G4 15-29Severely decreased G5 <15Kidney failure The eGFR was calculated using the Chronic Kidney Disease Epidemiology Collaboration (CKD-EPI) equation. Interpretation is based on recommendations of the National Kidney Foundation-Kidney Disease Outcomes Quality Initiative (NKF-KDOQI) published in 2014. Specimen Blood Performing Organization Address City/State/[place] [phone] [place] [address] PATHOLOGY AND GENOMIC MEDICINE, [facility] EMERGENCY CARE [facility] [place] [address] [address] [phone] [facility] * POC creatinine (05/05/2019 5:04 PM CDT) Only the most recent of 2 results within the time period is included. Pathologist [facility] POC creatinine 0.8 0.7 - 1.2 mg/dl [facility] Comment: [facility] Meter ID: [id number] [facility] Mess Attendant Crew: Elpidio Abdi Specimen Blood Performing Organization Address City/[facility]/Zipcode Phone Number [facility] [address] [place] [address] PATHOLOGY AND GENOMIC MEDICINE [facility] [address] * EMG general request (04/24/2019 4:26 PM CDT) Impressions Performed At Mr. Banda complains of back pain and numbness in his bilateral legs and feet, has rheumatoid arthritis, denies having diabetes and is being evaluated for neuropathy and lumbar radiculopathy. 1) Peroneal and tibial motor latencies are bilaterally normal with slowed velocities, bilaterally small peroneal amplitudes and normal tibial amplitudes. 2) Peroneal and tibial F Wave responses are bilaterally delayed. 3) Sural sensory responses are bilaterally absent. 4) Intramuscular recordings of the legs suggest chronic bilateral L5 denervation. 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 Selwyn Black M.D. Narrative Performed At NERVE CONDUCTION AND ELECTROMYOGRAPHY REPORT Neurological [place], [facility]-[address]th Floor; [place], [place] [address]; Name: Shira Banda Date of Procedure: April 24, 2019 Location: Sex: Male Date of :36 Referring Physician: Abimbola Morillo M.D.FAX: Patient is 5 5 ; 145 lbs.; RL 33.3 C; LL 33.4 C Nerve Conduction(Latencies in msec, Amplitudes uV, Distance cm, Velocity M/Sec) Right Motor Nerves Dist. Lat. Prox lat. D. amp. P. Amp.Dist. Velocity Right Peroneal EDB 4.111.41.2 0.924.5 33.5 Right Tibial4.314.16.2 4.033.0 33.8 Right Peroneal F Wave 62.0 Right Tibial F Wave 57.0 Right Sensory Nerves Dist. Lat. Prox lat. Dist. amp. Prox Amp. Distance Velocity Right Ixdnepeooze26.0 Left Motor Nerves Dist. Lat. Prox lat. D. amp. P. Amp.Dist. Velocity Left Peroneal EDB 4.012.71.3 0.228.5 32.8 Left Tibial4.814.36.8 4.132.5 34.5 Left Peroneal F Wave 58.0 Left Tibial F Wave 57.7 Left Sensory Nerves Dist. Lat. Prox lat. Dist. amp. Prox Amp. Distance Velocity Left Tiktehxqkgp32.0 Electromyography (Motor Unit in mV; H=High; L=Low; P=Polyphasic; NS=Non-specific) Right LegFibs. Pos. Waves Fasc. PolyphasiaMotor UnitsRecruitment Vas. Medialiswnl wnlwnl wnlwnl-1 Ant. Tibialiswnl wnlwnl 30HPwnl-1 Peroneus Longuswnl wnlwnl 30HPwnl-1 Gastronemiuswnl wnlwnl wnlwnlNS Ext. Dig. Breviswnl wnlwnl 30HPwnl-2 Left LegFibs. Pos. Waves Fasc. PolyphasiaMotor UnitsRecruitment Vas. Medialiswnl wnlwnl wnlwnl-1 Ant. Tibialiswnl wnlwnl 30HPwnl-1 Peroneus Longuswnl wnlwnl 30HPwnl-1 Gastronemiuswnl wnlwnl wnlwnlNS Ext. Dig. Breviswnl wnlwnl 30HPwnl-2 * CTA Abdominal Aorta And Bilateral Iliofemoral Runoff W Wo Contrast (02/08/2019 4:35 PM CDT) Only the most recent of 2 results within the time period is included. Specimen Narrative Performed At EXAMINATION: [facility] CT ANGIOGRAM ABDOMINAL AORTA AND BILATERAL ILIOFEMORAL RUNOFF W WO CONTRAST CLINICAL HISTORY: extensive PADrecent stent to left leghas positive claudication to both legs. TECHNIQUE: An emergency study was performed at [address] images were acquired using low-dose technique with iterative reconstructions and/or automated exposure control to reduce radiation dose. Multiple CT angiographic images of the abdomen, pelvis, and bilateral lower extremities were obtained before and during intravenous administration of iodinated contrast. Multiple computerized reformatted images as well as 3-D volume rendered images were also obtained. COMPARISON: CTA of the abdominal aorta with runoffs obtained on 11/29/2018. ABDOMINAL AORTOGRAM: The abdominal aorta is normal in caliber, without aneurysm or dissection. Calcification is at the origin of the celiac axis, with resultant moderate stenosis. The hepatic and splenic arteries are within normal limits. Calcification at the origin of the superior mesenteric artery causes a moderate stenosis. Single renal arteries are seen bilaterally, both demonstrating calcification without significant stenosis. The inferior mesenteric artery is patent. Atherosclerotic calcification is in the bilateral iliac arteries. Stents are in the left common and external iliac arteries, both patent. Significant stenosis at the origin of the left internal iliac artery. Moderately severe stenoses are in the mid right common iliac and internal and external iliac arteries. BILATERAL RUNOFFS: On the right, a moderately severe stenosis involves the common femoral artery just proximal to its bifurcation. Profunda femoral artery is patent. Multiple moderately severe to severe short stenoses are in the superficial femoral artery. It is patent to the popliteal artery. Popliteal artery is normal. Focal calcifications are in the anterior tibial artery, which is patent to the ankle. Tibioperoneal trunk and posterior tibial artery are normal. Focal calcification is in the peroneal artery, which is patent to the ankle. On the left, a moderately severe stenosis is in the distal common femoral artery. The profunda femoral artery is patent. Focal short stenoses are in the superficial femoral artery. A stent extends from the mid superficial femoral artery to the popliteal artery. The stent is patent. Popliteal artery is normal. Minimal calcification is in the anterior and posterior tibial and peroneal arteries, all patent to the ankle. ABDOMEN: Skeletal structures are within normal limits. Visualized portions of the chest demonstrate bibasilar atelectatic changes. Fibrosis is again seen in the lateral left lung base. The heart remains enlarged with four-chamber enlargement. The liver, spleen and pancreas are normal. Intrahepatic biliary ducts are normal. Common bile duct measures 8 mm as it traverses the pancreatic head. The gallbladder is surgically absent. The adrenal glands and kidneys are normal. Inferior vena cava is normal. There is no retroperitoneal adenopathy. Gastric contours are normal. Small bowel is not dilated. The appendix is normal. Focal areas of colon wall thickening are in the splenic flexure and descending colon. PELVIS: Bladder contours are normal. Prostate and seminal vesicles are normal. There are no masses or fluid collections. BILATERAL LOWER EXTREMITIES: Mild soft tissue edema is at the ankles. Muscle bundles are intact. Skeletal structures are within normal limits. IMPRESSION: Status post left common and external iliac and superficial femoral stenting. The stents are patent. Focal short significant stenoses in both superficial femoral arteries. On the left these are proximal to the stents. These have not significantly changed the appearance of the splenic flexure and proximal descending colon raises the possibility of focal colitis, either infectious, inflammatory or ischemic. [facility]-[id number] Procedure Note [facility], Radiology Results Incoming - 02/08/2019 5:07 PM CDT EXAMINATION: CT ANGIOGRAM ABDOMINAL AORTA AND BILATERAL ILIOFEMORAL RUNOFF W WO CONTRAST CLINICAL HISTORY: extensive PAD recent stent to left leg has positive claudication to both legs. TECHNIQUE: An emergency study was performed at [address] images were acquired using low-dose technique with iterative reconstructions and/or automated exposure control to reduce radiation dose. Multiple CT angiographic images of the abdomen, pelvis, and bilateral lower extremities were obtained before and during intravenous administration of iodinated contrast. Multiple computerized reformatted images as well as 3-D volume rendered images were also obtained. COMPARISON: CTA of the abdominal aorta with runoffs obtained on 11/29/2018. ABDOMINAL AORTOGRAM: The abdominal aorta is normal in caliber, without aneurysm or dissection. Calcification is at the origin of the celiac axis, with resultant moderate stenosis. The hepatic and splenic arteries are within normal limits. Calcification at the origin of the superior mesenteric artery causes a moderate stenosis. Single renal arteries are seen bilaterally, both demonstrating calcification without significant stenosis. The inferior mesenteric artery is patent. Atherosclerotic calcification is in the bilateral iliac arteries. Stents are in the left common and external iliac arteries, both patent. Significant stenosis at the origin of the left internal iliac artery. Moderately severe stenoses are in the mid right common iliac and internal and external iliac arteries. BILATERAL RUNOFFS: On the right, a moderately severe stenosis involves the common femoral artery just proximal to its bifurcation. Profunda femoral artery is patent. Multiple moderately severe to severe short stenoses are in the superficial femoral artery. It is patent to the popliteal artery. Popliteal artery is normal. Focal calcifications are in the anterior tibial artery, which is patent to the ankle. Tibioperoneal trunk and posterior tibial artery are normal. Focal calcification is in the peroneal artery, which is patent to the ankle. On the left, a moderately severe stenosis is in the distal common femoral artery. The profunda femoral artery is patent. Focal short stenoses are in the superficial femoral artery. A stent extends from the mid superficial femoral artery to the popliteal artery. The stent is patent. Popliteal artery is normal. Minimal calcification is in the anterior and posterior tibial and peroneal arteries, all patent to the ankle. ABDOMEN: Skeletal structures are within normal limits. Visualized portions of the chest demonstrate bibasilar atelectatic changes. Fibrosis is again seen in the lateral left lung base. The heart remains enlarged with four-chamber enlargement. The liver, spleen and pancreas are normal. Intrahepatic biliary ducts are normal. Common bile duct measures 8 mm as it traverses the pancreatic head. The gallbladder is surgically absent. The adrenal glands and kidneys are normal. Inferior vena cava is normal. There is no retroperitoneal adenopathy. Gastric contours are normal. Small bowel is not dilated. The appendix is normal. Focal areas of colon wall thickening are in the splenic flexure and descending colon. PELVIS: Bladder contours are normal. Prostate and seminal vesicles are normal. There are no masses or fluid collections. BILATERAL LOWER EXTREMITIES: Mild soft tissue edema is at the ankles. Muscle bundles are intact. Skeletal structures are within normal limits. IMPRESSION: Status post left common and external iliac and superficial femoral stenting. The stents are patent. Focal short significant stenoses in both superficial femoral arteries. On the left these are proximal to the stents. These have not significantly changed the appearance of the splenic flexure and proximal descending colon raises the possibility of focal colitis, either infectious, inflammatory or ischemic. [facility]-[id number] Performing Organization Address City/State/Zipcode Phone Number [address] [place] [address] * CBC with platelet and differential (02/08/2019 3:25 PM CDT) Only the most recent of 5 results within the time period is included. WBC 5.44 4.50 - 11.00 k/uL [facility] RBC 3.49 (L) 4.40 - 6.00 m/uL [facility] HGB 10.2 (L) 14.0 - 18.0 g/dL [facility] HCT 31.3 (L) 41.0 - 51.0 % [facility] MCV 89.7 82.0 - 100.0 fL [facility] MCH 29.2 27.0 - 34.0 pg [facility] MCHC 32.6 31.0 - 37.0 g/dL [facility] RDW - SD 50.9 37.0 - 55.0 fL [facility] MPV 11.1 8.8 - 13.2 fL [facility] Platelet count 131 (L) 150 - 400 k/uL [facility] Neutrophils 71.0 (H) 39.0 - 69.0 % [facility] Lymphocytes 17.1 (L) 25.0 - 45.0 % [facility] Monocytes 9.6 0.0 - 10.0 % [facility] Eosinophils 1.5 0.0 - 5.0 % [facility] Basophils 0.4 0.0 - 1.0 % [facility] Immature 0.4 0.0 - 1.0 % [facility] granulocytes [facility] Specimen Blood Performing Organization Address City/State/Zipcode Phone Number [facility] [place] [address] [place] [address] PATHOLOGY AND GENOMIC MEDICINE [facility] [address] [address] [place], [place] [address] [place] [address] * Comprehensive metabolic panel (02/08/2019 3:25 PM CDT) Only the most recent of 4 results within the time period is included. Sodium 143 135 - 148 mEq/L [facility] Potassium 3.8 3.5 - 5.0 mEq/L [facility] Chloride 105 99 - 109 mEq/L [facility] CO2 26 24 - 31 mEq/L [facility] Anion gap 12@ANIO 7 - 15 mEq/L [facility] BUN 14 8 - 24 mg/dL [facility] Creatinine 0.85 0.70 - 1.20 mg/dL [facility] Glucose 100 (H) 65 - 99 mg/dL [facility] Calcium 9.3 8.6 - 10.6 mg/dL [facility] Protein 6.2 (L) 6.3 - 8.2 g/dL [facility] Albumin 3.3 (L) 3.5 - 5.0 g/dL [facility] A/G ratio 1.1 0.7 - 3.8 [facility] Alkaline 133 (H) 30 - 115 U/L [facility] phosphatase [facility] AST 28 15 - 46 U/L [facility] ALT 30 10 - 55 U/L [facility] Total bilirubin 0.5 0.2 - 1.2 mg/dL [facility] Specimen Plasma specimen Performing Organization Address City/State/Zipcode [place] [address] [place] [address] PATHOLOGY AND GENOMIC MEDICINE [facility] [address] [place] [address] HOSPITAL * Us duplex venous lower extremity (02/07/2019 4:00 PM CDT) Specimen Narrative Performed At EXAMINATION:US DUPLEX VENOUS LOWER EXTREMITY RIGHT [facility] CLINICAL HISTORY: 78 years 1940 M79.661 Pain in right lower leg, M79.89 Other specified soft tissue disorders, Rule out DVTswelling and pain COMPARISON:None. TECHNIQUE:Grayscale, color Doppler and spectral waveform analysis of the right lower extremity deep venous system. FINDINGS: The right common femoral, femoral, deep femoral, and popliteal veins are compressible. They demonstrate venous waveforms and response to augmentation. Flow is identified within the visualized deep veins of the right calf. Flow is identified within the right great saphenous vein. Flow was also documented in the left common femoral vein. IMPRESSION: No evidence of deep venous thrombosis in the right lower extremity. [facility]-[id number] Procedure Note Hm Interface, Radiology Results Incoming - 02/07/2019 4:30 PM CDT EXAMINATION: US DUPLEX VENOUS LOWER EXTREMITY RIGHT CLINICAL HISTORY: 78 years 1940 M79.661 Pain in right lower leg, M79.89 Other specified soft tissue disorders, Rule out DVT swelling and pain COMPARISON: None. TECHNIQUE: Grayscale, color Doppler and spectral waveform analysis of the right lower extremity deep venous system. FINDINGS: The right common femoral, femoral, deep femoral, and popliteal veins are compressible. They demonstrate venous waveforms and response to augmentation. Flow is identified within the visualized deep veins of the right calf. Flow is identified within the right great saphenous vein. Flow was also documented in the left common femoral vein. IMPRESSION: No evidence of deep venous thrombosis in the right lower extremity. [facility]-[id number] Performing Organization Address City/State/Zipcode Phone Number [facility] [address] [place] [address] * Us duplex arterial lower extremity (02/07/2019 4:00 PM CDT) Only the most recent of 2 results within the time period is included. Specimen Narrative Performed At EXAM: US DUPLEX ARTERIAL LOWER EXTREMITY BILATERAL [facility] HISTORY: I73.9 Peripheral vascular diseaseunspecified, I70.213 Atherosclerosis of [place] arteries of extremities with intermittent claudicationbilateral legs, Bilateral swelling and pain when walking after surgeryafter surgery 3 2018s p LEFT LOWER EXTREMITY ANGIOGRAM WITH SFAPOPLITEALAND ILIAC TECHNIQUE: Real-time as well as pulsed and color Doppler evaluation of bilateral common femoral, femoral, popliteal, posterior tibial, anterior tibial, and dorsalis pedis arteries are evaluated. The examination includes a full duplex Doppler scan of the blood vessels (real-time P mode grayscale, Doppler spectral analysis, and Doppler color flow imaging). COMPARISON: CTA runoff November 29, 2018 IMPRESSION: 1.There is multifocal vascular calcification throughout the right leg without evidence of focal flow limiting stenosis. Waveforms are diffusely biphasic. 2.There is focal flow velocity elevation at the left external iliac artery suggesting greater than 50% stenosis. Waveforms below this level are diffusely monophasic. A left distal femoral to proximal popliteal artery stent is patent. FINDINGS: RIGHT LEG: PEAK SYSTOLIC VELOCITIES ARE FOLLOWS: COMMON FEMORAL:152 cm/s FEMORAL: Proximal: 109 Mid:206 Distal:80 POPLITEAL: Proximal:74 Mid:58 Distal: 53 POSTERIOR TIBIAL: Proximal: 55 Mid:69 Distal:53 ANTERIOR TIBIAL: Proximal: 103 Mid:52 Distal:88 DORSALIS PEDIS: 68 DOPPLER WAVEFORMS AND FINDINGS: Waveforms are diffusely biphasic throughout the right lower extremity. There is diffuse vascular calcification throughout the arterial tree without evidence of focal stenosis. LEFT LEG: PEAK SYSTOLIC VELOCITIES ARE FOLLOWS: COMMON FEMORAL:73 cm/s FEMORAL: Proximal: 113 Mid:51 Distal:34 POPLITEAL: Proximal: 41 Mid:37 Distal: 46 POSTERIOR TIBIAL: Proximal: 46 Mid:39 Distal:44 ANTERIOR TIBIAL: Proximal:42 Mid:33 Distal: 58 DORSALIS PEDIS:58 DOPPLER WAVEFORMS AND FINDINGS: The external iliac artery demonstrates an elevated peak systolic velocity of 242 cm/s with a biphasic waveform. Left common femoral artery waveform is slightly biphasic. There is diffuse calcification throughout the arterial tree. A distal femoral to proximal popliteal stent is patent. Below the level of the common femoral artery flows are diffusely monophasic. [facility]-[id number] Procedure Note Hm Interface, Radiology Results Incoming - 02/07/2019 4:50 PM CDT EXAM: US DUPLEX ARTERIAL LOWER EXTREMITY BILATERAL HISTORY: I73.9 Peripheral vascular disease unspecified, I70.213 Atherosclerosis of [place] arteries of extremities with intermittent claudication bilateral legs, Bilateral swelling and pain when walking after surgery after surgery 01 22 2019 s p LEFT LOWER EXTREMITY ANGIOGRAM WITH SFA POPLITEAL AND ILIAC TECHNIQUE: Real-time as well as pulsed and color Doppler evaluation of bilateral common femoral, femoral, popliteal, posterior tibial, anterior tibial, and dorsalis pedis arteries are evaluated. The examination includes a full duplex Doppler scan of the blood vessels (real-time P mode grayscale, Doppler spectral analysis, and Doppler color flow imaging). COMPARISON: CTA runoff November 29, 2018 IMPRESSION: 1. There is multifocal vascular calcification throughout the right leg without evidence of focal flow limiting stenosis. Waveforms are diffusely biphasic. 2. There is focal flow velocity elevation at the left external iliac artery suggesting greater than 50% stenosis. Waveforms below this level are diffusely monophasic. A left distal femoral to proximal popliteal artery stent is patent. FINDINGS: RIGHT LEG: PEAK SYSTOLIC VELOCITIES ARE FOLLOWS: COMMON FEMORAL: 152 cm/s FEMORAL: Proximal: 109 Mid: 206 Distal: 80 POPLITEAL: Proximal: 74 Mid: 58 Distal: 53 POSTERIOR TIBIAL: Proximal: 55 Mid: 69 Distal: 53 ANTERIOR TIBIAL: Proximal: 103 Mid: 52 Distal: 88 DORSALIS PEDIS: 68 DOPPLER WAVEFORMS AND FINDINGS: Waveforms are diffusely biphasic throughout the right lower extremity. There is diffuse vascular calcification throughout the arterial tree without evidence of focal stenosis. LEFT LEG: PEAK SYSTOLIC VELOCITIES ARE FOLLOWS: COMMON FEMORAL: 73 cm/s FEMORAL: Proximal: 113 Mid: 51 Distal: 34 POPLITEAL: Proximal: 41 Mid: 37 Distal: 46 POSTERIOR TIBIAL: Proximal: 46 Mid: 39 Distal: 44 ANTERIOR TIBIAL: Proximal: 42 Mid: 33 Distal: 58 DORSALIS PEDIS: 58 DOPPLER WAVEFORMS AND FINDINGS: The external iliac artery demonstrates an elevated peak systolic velocity of 242 cm/s with a biphasic waveform. Left common femoral artery waveform is slightly biphasic. There is diffuse calcification throughout the arterial tree. A distal femoral to proximal popliteal stent is patent. Below the level of the common femoral artery flows are diffusely monophasic. [facility]-[id number] Performing Organization Address City/[facility]/Zipcode Phone Number [facility] [address] [place] [address] * Hybrid or fluoroscopy (01/22/2019 12:09 PM CDT) Specimen Narrative Performed At See operative report for the same day Claim[facility]O Performing Organization Address City/[facility] Cent[facility] Phone Number [facility] [address] [place] [address] * Activated clotting time (01/22/2019 10:46 AM CDT) Only the most recent of 4 results within the time period is included. Pathologist [facility] Activated 312 (H) 96 - 152 sec [facility] clotting time Comment: [facility] Meter ID: [id number] ?Mess Attendant Crew: Name not found in RALS Specimen Performing Organization Address City/[facility]/Zipcode Phone Number [facility] [place] [address] [place] [address] PATHOLOGY AND GENOMIC MEDICINE [facility] [address] [address] * POC blood gas, arterial and lytes (01/22/2019 9:54 AM CDT) pH, arterial, 7.43 7.35 - 7.45 [facility] pCO2, arterial, 38 35 - 45 mmhg [facility] pO2, arterial, 321 (H) 80 - 90 mmHg [facility] Base excess, 1 -2 - 2 mmol/L [facility] arterial, POC [facility] Bicarbonate, 25.5 21.0 - 28.0 mmol/L [facility] arterial, [facility] CO2 calculated, 27 24 - 31 mmol/L [facility] arterial, POC [facility] O2 saturation, 100 95 - 100 % [facility] arterial, POC [facility] POC sodium 140 135 - 148 mmol/L [facility] POC potassium 3.6 3.5 - 5.0 mmol/L [facility] POC hematocrit 28 (L) 41 - 51 % [facility] POC glucose 116 (H) 65 - 99 mg/dL [facility] Ionized 1.25 1.11 - 1.32 mmol/L [facility] calcium, [facility] arterial, POC HOSPITAL POC hemoglobin 9.5 (L) 14.0 - 18.0 g/dL [facility] Comment: [facility] Meter ID: [id number] [facility] Mess Attendant Crew: Fly Young Specimen Blood Performing Organization Address City/State/Zipcode Phone Number [facility] [address] [place] [address] PATHOLOGY AND [facility] MEDICINE [address] * Hybrid or fluoroscopy (01/22/2019 9:37 AM CDT) Specimen Narrative Performed At See operative report for the same day [facility]NGO Performing Organization Address City/State/Zipcode Phone Number [facility] [address] [place] [address] * Partial thromboplastin time, activated (01/21/2019 1:15 PM CDT) Only the most recent of 2 results within the time period is included. PTT 38.8 (H) 23.0 - 36.0 sec [facility] Comment: [facility] PTT therapeutic range for HOSPITAL unfractionated heparin is 61.0-112.0 seconds which corresponds to Anti-Xa 0.3-0.7 U/ml. Specimen Blood Performing Organization Address City/State/Zipcode Phone Number [facility] [address] [place] [address] PATHOLOGY AND GENOMIC MEDICINE [address] * Prothrombin time with INR (01/21/2019 1:15 PM CDT) Only the most recent of 2 results within the time period is included. Prothrombin 13.9 11.5 - 14.5 sec [facility] time [facility] INR 1.1 [facility] Comment: [facility] The International Normalized HOSPITAL Ratio (INR) is a therapeutic monitoring tool for patients who are stable on oral anticoagulant therapy. An INR of 2.0-3.0 is suggested for deep vein thrombosis/pulmonary embolism. Specimen Blood Performing Organization Address City/State/Zipcode Phone Number [facility] [address] [place] [address] PATHOLOGY AND [place] [address] HOSPITAL * Prepare RBC (01/21/2019 1:15 PM CDT) Pathologist [facility] Product name Red Blood Cells -1, Leukored [facility] Unit number [id number] [facility] Product code [id number] [facility] Dispense status Returned to BB not transfused [facility] Blood [id number] [facility] expiration date [facility] Blood type code 9500 [facility] Blood type O NEGATIVE [facility] Product name Red Blood Cells -1, Leukored [facility] Unit number [id number] [facility] Product code [id number] [facility] Dispense status Returned to BB not transfused [facility] Blood [id number] [facility] expiration date [facility] Blood type code 9500 [facility] Blood type O NEGATIVE [facility] Specimen Performing Organization Address City/[facility] Centercode Phone Number [facility] DEPARTMENT [address] [place] [address] PATHOLOGY AND [facility] [place] [address] HOSPITAL * Type and screen (01/21/2019 1:15 PM CDT) Pathologist [facility] ABO grouping O [facility] Rh type NEG [facility] Antibody screen NEG [facility] (gel) [facility] Specimen Blood Performing Organization Address City/State/Zipcode Phone Number [facility] DEPARTMENT [address] [place] [address] PATHOLOGY AND [place] [address] HOSPITAL * Basic metabolic panel (01/21/2019 1:15 PM CDT) Sodium 139 135 - 148 mEq/L [facility] Potassium 4.8 3.5 - 5.0 mEq/L [facility] Chloride 103 99 - 109 mEq/L [facility] CO2 23 (L) 24 - 31 mEq/L [facility] Anion gap 13@ANIO 7 - 15 mEq/L [facility] BUN 22 8 - 24 mg/dL [facility] Creatinine 0.88 0.70 - 1.20 mg/dL [facility] Glucose 137 (H) 65 - 99 mg/dL [facility] Calcium 10.0 8.6 - 10.6 mg/dL [facility] Specimen Plasma specimen Performing Organization Address City/[facility] Centercode Phone Number [facility] [place] [id number] [place] [address]. [place] [address] PATHOLOGY AND GENOMIC MEDICINE [address] * Urine culture (01/21/2019 1:00 PM CDT) Urine culture SEE COMMENTComment: [facility] Bacteriuria screen negative. [facility] Specimen Performing Organization Address [facility] Phone Number [facility] DEPARTMENT [address] [place] [address] PATHOLOGY AND GENOMIC MEDICINE [address] * Urinalysis screen and microscopy, with reflex to culture (01/21/2019 12:36 PM CDT) Specimen site Clean catch [facility] Color, UA Yellow [facility] Appearance, UA Clear [facility] Specific 1.018 1.001 - 1.035 [facility] gravity, UA [facility] pH, UA 6.0 5.0 - 8.5 [facility] Protein, UA 2+ (A) Negative [facility] Glucose, UA Negative Negative [facility] Ketones, UA Negative Negative [facility] Bilirubin, UA Negative Negative [facility] Blood, UA Negative Negative [facility] Nitrite, UA Negative Negative [facility] Urobilinogen, <2.0 <2.0 [facility] Leukocyte Negative Negative [facility] esterase, UA [facility] WBC, UA None seen 0 - 1 /HPF [facility] RBC, UA 3 0 - 5 /HPF [facility] Bacteria, UA None seen None seen [facility] Yeast, UA None seen [facility] Yeast with None seen [facility] pseudohyphae, [facility] Specimen Urine Performing Organization Address City/State/Zipcode Phone Number [facility] [address] [place] [address] PATHOLOGY AND GENOMIC MEDICINE [facility] [address] [address] [place] [id number] [facility] * Bone Density (01/20/2019 11:02 AM CDT) Specimen Narrative Performed At EXAMINATION:BONE DENSITY HM [facility] CLINICAL HISTORY:M81.0 Age-related osteoporosis without current pathological fracture, M0.59 COMPARISON:None. The results of this study expressed as bone mineral density (BMD) were as follows: AP spine (L1-L4) BMD: 1.09 g/cm2 T-Score: -1.2 Percent change: No prior exam. % Dual Femur (Total Mean): BMD: 0.3 g/cm2 T-Score: -1.9 Percent change: No prior exam. % Femur FRAX: Risk factors: Current tobacco use. 10 year probability of fracture: 1.Major osteoporotic: 7.9% 2.Hip: 4.8% Impression: Lumbar spine and proximal femur values indicate osteopenia. Notes: *The world health organization (WHO) has classified the patient's T-score as follows: Normal:T score at or above -1.0 Osteopenia:T score between -1.0 and -2.5 Osteoporosis:T score at or below -2.5 (osteoporosis, increased fracture risk) For premenopausal women, men under the age 50 years, and children the WHO classification does not apply. In these individuals please assess bone mineral density with Z scores for each skeletal site examined. Z scores above -2.0: Within expected range for age. Z scores lower than -2.0:Low bone density for age. The TBS is derived from the texture of the DEXA image and has been shown to be related to bone microarchitecture and fracture risk. This data provides information independent of BMD value; is used as a complement to the data obtained from the DEXA analysis and the clinical examination. The TBS can assist the healthcare professional in assessment of fracture risk and in monitoring the effect of treatments on patient over time. [facility]-[id number] Procedure Note Hm Interface, Radiology Results Incoming - 01/20/2019 12:08 PM CDT EXAMINATION: BONE DENSITY CLINICAL HISTORY: M81.0 Age-related osteoporosis without current pathological fracture, M0.59 COMPARISON: None. The results of this study expressed as bone mineral density (BMD) were as follows: AP spine (L1-L4) BMD: 1.09 g/cm2 T-Score: -1.2 Percent change: No prior exam. % Dual Femur (Total Mean): BMD: 0.3 g/cm2 T-Score: -1.9 Percent change: No prior exam. % Femur FRAX: Risk factors: Current tobacco use. 10 year probability of fracture: 1. Major osteoporotic: 7.9% 2. Hip: 4.8% Impression: Lumbar spine and proximal femur values indicate osteopenia. Notes: *The world health organization (WHO) has classified the patient's T-score as follows: Normal: T score at or above -1.0 Osteopenia: T score between -1.0 and -2.5 Osteoporosis: T score at or below -2.5 (osteoporosis, increased fracture risk) For premenopausal women, men under the age 50 years, and children the WHO classification does not apply. In these individuals please assess bone mineral density with Z scores for each skeletal site examined. Z scores above -2.0: Within expected range for age. Z scores lower than -2.0: Low bone density for age. The TBS is derived from the texture of the DEXA image and has been shown to be related to bone microarchitecture and fracture risk. This data provides information independent of BMD value; is used as a complement to the data obtained from the DEXA analysis and the clinical examination. The TBS can assist the healthcare professional in assessment of fracture risk and in monitoring the effect of treatments on patient over time. [facility]-[id number] Performing Organization Address City/State/Zipcode Phone Number [facility] [address] [place] [address] * Respiratory culture (01/14/2019 8:55 AM CDT) Only the most recent of 2 results within the time period is included. Respiratory No normal oral nevaeh isolated. HARVEY culture isolate (A) [facility] Comment: HOSPITAL Specimen Information Specimen Source: Bronchial alveolar lavage Specimen Site: MICA (Left Upper Lobe) Respiratory Pseudomonas aeruginosa HARVEY culture isolate Occasional [facility] This organism is NOT a HOSPITAL carbapenemase producing organism. (A) Specimen Bronchial alveolar lavage - MICA (left upper lobe) Antibiotic Method Susceptibility Organism Amikacin [place]AR[place] <=4 mcg/mL: Susceptible Pseudomonas aeruginosa Aztreonam [place] 8 mcg/mL: Susceptible Pseudomonas aeruginosa Ceftazidime [place] 8 mcg/mL: Susceptible Pseudomonas aeruginosa Ciprofloxacin [place] <=0.5 mcg/mL: Susceptible Pseudomonas aeruginosa Gentamicin [place] 2 mcg/mL: Susceptible Pseudomonas aeruginosa Imipenem [place] 1 mcg/mL: Susceptible Pseudomonas aeruginosa Levofloxacin [place] <=1 mcg/mL: Susceptible Pseudomonas aeruginosa Meropenem [place] 0.5 mcg/mL: Susceptible Pseudomonas aeruginosa Piperacillin/Tazobactam [place] 8/4 mcg/mL: Susceptible Pseudomonas aeruginosa Tobramycin [place] 1 mcg/mL: Susceptible Pseudomonas aeruginosa Cefepime [place] 4 mcg/mL: Susceptible Pseudomonas aeruginosa Performing Organization Address [facility] Phone Number [facility] DEPARTMENT OF [address] [place] [address] PATHOLOGY AND GENOMIC MEDICINE SAWYER [place] * Fungus smear (01/14/2019 8:55 AM CDT) Only the most recent of 2 results within the time period is included. Fungus smear No fungi observed. SAWYER Comment: [facility] Specimen Information HOSPITAL Specimen Source: Bronchial alveolar lavage Specimen Site: MICA (Left Upper Lobe) Specimen Bronchial alveolar lavage - MICA (left upper lobe) Performing Organization Address [facility] Phone Number [facility] [place] [address] PATHOLOGY AND GENOMIC MEDICINE [place] * Respiratory pathogen panel (01/14/2019 8:55 AM CDT) Only the most recent of 3 results within the time period is included. Respiratory Positive for SAWYER pathogen panel Rhinovirus/Enterovirus [facility] Negative for all other pathogens tested: Negative for Adenovirus Negative for Coronavirus HKU1 Negative for Coronavirus NL63 Negative for Coronavirus 229E Negative for Coronavirus OC43 Negative for Human Metapneumovirus Negative for Influenza A Negative for Influenza A/H1 Negative for Influenza A/H3 Negative for Influenza A/H1-2009 Negative for Influenza B Negative for Parainfluenza Virus 1 Negative for Parainfluenza Virus 2 Negative for Parainfluenza Virus 3 Negative for Parainfluenza Virus 4 Negative for Respiratory Syncytial Virus Negative for Bordetella pertussis Negative for Chlamydophila pneumoniae Negative for Mycoplasma pneumoniae This real-time PCR assay detects the presence of nucleic acids (RNA or DNA) for the respiratory pathogens listed. A result of "Not-detected" does not exclude the possibility of the presence of one or more pathogens at concentrations less than the detectable limits of the assa (A) Comment: Specimen Information Specimen Source: Bronchial alveolar lavage Specimen Site: MICA (Left Upper Lobe) Specimen Bronchial alveolar lavage - MICA (left upper lobe) Performing Organization Address City/[facility] Phone Number [facility] [place] [address] PATHOLOGY AND [facility] MEDICINE SAWYER [facility] [address] [place] [address] * BAL cell count and differential (01/14/2019 8:55 AM CDT) Only the most recent of 2 results within the time period is included. Pathologist [facility] BAL specimen MICA BAL [facility] BAL cell count 0.055 m/mL SAWYER Comment: [facility] Normal ranges: Nonsmokers: [facility] 0.007 - 0.363 Smokers: 0 - 1.31 55% viability Differential not performed due to low cellularity;GILBERT cells with occasional neutrophils identified. REVISED REPORT, Previously reported as: 55% viability (Reported 01/14/2019 21:52) Specimen Bronchial alveolar lavage - Bronchial alveolar lavage Performing Organization Address [facility] Phone Number [facility] [place] [address] PATHOLOGY AND [facility] MEDICINE [place] * AFB culture (01/14/2019 8:55 AM CDT) Only the most recent of 2 results within the time period is included. Pathologist [facility] AFB culture No growth after 6 weeks of SAWYER isolate incubation. [facility] Comment: HOSPITAL Specimen Information Specimen Source: Bronchial alveolar lavage Specimen Site: MICA (Left Upper Lobe) Specimen Bronchial alveolar lavage - MICA (left upper lobe) Performing Organization Address [facility] Phone Number [facility] [place] [address] PATHOLOGY AND [facility] MEDICINE [address] * Nocardia culture (01/14/2019 8:55 AM CDT) Only the most recent of 2 results within the time period is included. Nocardia No Nocardia isolated after 7 SAWYER culture isolate days. [facility] Comment: HOSPITAL Specimen Information Specimen Source: Bronchial alveolar lavage Specimen Site: MICA (Left Upper Lobe) Specimen Bronchial alveolar lavage - MICA (left upper lobe) Performing Organization Address City/[facility] Phone Number [facility] DEPARTMENT OF [address] [place] [address] PATHOLOGY AND GENOMIC MEDICINE SAWYER [facility] [address] [place] [address] * Legionella culture (01/14/2019 8:55 AM CDT) Only the most recent of 2 results within the time period is included. Legionella No Legionella isolated. LONGO culture isolate Comment: [facility] Specimen Information HOSPITAL Specimen Source: Bronchial alveolar lavage Specimen Site: MIAC (Left Upper Lobe) Specimen Bronchial alveolar lavage - MICA (left upper lobe) Performing Organization Address [facility] Phone Number [facility] DEPARTMENT OF [address] [place] [address] PATHOLOGY AND GENOMIC MEDICINE SAWYER [facility] [address] [place] [address] HOSPITAL * Gram stain (01/14/2019 8:55 AM CDT) Only the most recent of 2 results within the time period is included. Gram stain Many WBC's LONGO isolate Occasional Gram positive cocci [facility] in [facility] Many Gram negative rods Comment: Specimen Information Specimen Source: Bronchial alveolar lavage Specimen Site: MICA (Left Upper Lobe) Specimen Bronchial alveolar lavage - MICA (left upper lobe) Performing Organization Address [facility] Phone Number [facility] DEPARTMENT OF [address] [place] [address] PATHOLOGY AND GENOMIC MEDICINE SAWYER [facility] [address] [place] [address] * AFB stain (01/14/2019 8:55 AM CDT) Only the most recent of 2 results within the time period is included. AFB stain No acid fast bacilli (AFB) SAWYER seen. [facility] Comment: HOSPITAL Specimen Information Specimen Source: Bronchial alveolar lavage Specimen Site: MICA (Left Upper Lobe) Specimen Bronchial alveolar lavage - MICA (left upper lobe) Performing Organization Address [facility] Phone Number [facility] DEPARTMENT OF [address] [place] [address] PATHOLOGY AND GENOMIC MEDICINE SAWYER [facility] [address] [place] [address] HOSPITAL * Fungus culture (01/14/2019 8:55 AM CDT) Only the most recent of 2 results within the time period is included. Fungus culture Addisonuld HARVEY isolate Unable to complete culture due [facility] to contamination. HOSPITAL (A) Comment: Specimen Information Specimen Source: Bronchial alveolar lavage Specimen Site: MICA (Left Upper Lobe) Specimen Bronchial alveolar lavage - MICA (left upper lobe) Performing Organization Address City/[facility]/Zipcode Phone Number [facility] DEPARTMENT OF [address] [place] [address] PATHOLOGY AND GENOMIC MEDICINE SAWYER MORMON [address] [place] [address] HOSPITAL * Surgical pathology request (01/14/2019 8:50 AM CDT) [facility] DEPARTMENT OF PATHOLOGY AND GENOMIC MEDICINE Surgical See link below for PDF Lab [facility] DEPARTMENT pathology Report OF PATHOLOGY report AND GENOMIC MEDICINE Result status This is Final Report for [facility] DEPARTMENT [id number] OF PATHOLOGY AND GENOMIC MEDICINE Specimen Performing Organization Address City/[facility] Phone Number [facility] [address] [place] [address] PATHOLOGY AND GENOMIC MEDICINE * Cytology (non-gynecological) request (01/14/2019 8:50 AM CDT) Only the most recent of 2 results within the time period is included. [facility] DEPARTMENT OF PATHOLOGY AND GENOMIC MEDICINE Cytology See link below for PDF Lab [facility] DEPARTMENT (non-gynecologi Report OF PATHOLOGY ravi) report AND GENOMIC MEDICINE Result status This is Final Report for [facility] DEPARTMENT [id number] OF PATHOLOGY AND GENOMIC MEDICINE Specimen Performing Organization Address City/[facility] Phone Number [facility] [address] [place] [address] PATHOLOGY AND GENOMIC MEDICINE * XR Chest 1 Vw Portable (01/14/2019 8:32 AM CDT) Only the most recent of 2 results within the time period is included. Specimen Narrative Performed At EXAMINATION:XR CHEST 1 VW PORTABLE [facility] CLINICAL HISTORY:s p bronch and biopsies COMPARISON:November 29, 2018 IMPRESSION: 1.There is no pneumothorax. 2.There is diffuse increase in interstitial prominence throughout the lungs since the prior study. 3.There is increase in right basal volume loss and there may be a small right basal pleural effusion. [id number] Procedure Note Interface, Radiology Results Incoming - 01/14/2019 8:39 AM CDT EXAMINATION: XR CHEST 1 VW PORTABLE CLINICAL HISTORY: s p bronch and biopsies COMPARISON: November 29, 2018 IMPRESSION: 1. There is no pneumothorax. 2. There is diffuse increase in interstitial prominence throughout the lungs since the prior study. 3. There is increase in right basal volume loss and there may be a small right basal pleural effusion. [id number] Performing Organization Address [facility] Phone Number [facility] [address] [place] [address] * OR FL < 1 Hour (01/14/2019 8:10 AM CDT) Specimen Narrative Performed At EXAMINATION:OR FL 1 HOUR HM [facility] C-arm fluoroscopy was requested in OR. FT: 48 SEC. DOSE: 5.17 MGY IMPRESSION: Separate operative report will be issued by the physician performing the procedure. [id number] Procedure Note Interface, Radiology Results - 01/14/2019 2:07 PM CDT EXAMINATION: OR FL 1 HOUR C-arm fluoroscopy was requested in OR. FT: 48 SEC. DOSE: 5.17 MGY IMPRESSION: Separate operative report will be issued by the physician performing the procedure. [id number] Performing Organization Address [facility] Phone Number [facility] [address] [place] [address] * XR Wrist 2 Vw Bilateral (01/10/2019 2:25 PM [employer]) Specimen Narrative Performed At Examination: XR WRIST 2 VW BILATERAL HM [facility] Clinical history: M05.9 Rheumatoid arthritis with rheumatoid factorunspecified, M05.9 Comparison: None Impression: 2 images were obtained of each wrist. 1. There is no fracture or acute osseous pathology. 2. There is mild left and moderate right radiocarpal joint space narrowing with moderate subchondral cyst formation within the right distal radius and ulna and scattered cysts or erosions throughout the right carpal bones. No focal erosion is demonstrated about the left wrist. There is no anu periarticular osteopenia. 1 erosions could be degenerative, location and characteristics suggest possible inflammatory arthropathy. Please correlate. [facility]-[id number] Procedure Note Interface, Radiology Results 01/10/2019 2:51 PM [employer] Examination: XR WRIST 2 VW BILATERAL Clinical history: M05.9 Rheumatoid arthritis with rheumatoid factor unspecified, M05.9 Comparison: None Impression: 2 images were obtained of each wrist. 1. There is no fracture or acute osseous pathology. 2. There is mild left and moderate right radiocarpal joint space narrowing with moderate subchondral cyst formation within the right distal radius and ulna and scattered cysts or erosions throughout the right carpal bones. No focal erosion is demonstrated about the left wrist. There is no anu periarticular osteopenia. 1 erosions could be degenerative, location and characteristics suggest possible inflammatory arthropathy. Please correlate. [id number] Performing Organization Address [facility] Phone Number [facility] [address] [place] [address] * XR Hands 3 Vw Bilateral (01/10/2019 2:24 PM [employer]) Specimen Narrative Performed At Examination: XR HANDS 3 VW BILATERAL [facility] Clinical history: M05.9 Rheumatoid arthritis with rheumatoid factorunspecified, M05.9 Comparison: None Impression: 1. There is no fracture or acute osseous pathology. 2. Mild periventricular osteopenia about each hand is suspicious for changes related to rheumatoid arthritis. Erosions throughout the carpus and several distal metacarpals and proximal phalanges bilaterally but more prominent on the right. [facility]-[id number] Procedure Note Hm Interface, Radiology Results Incoming - 01/10/2019 4:53 PM [employer] Examination: XR HANDS 3 VW BILATERAL Clinical history: M05.9 Rheumatoid arthritis with rheumatoid factor unspecified, M05.9 Comparison: None Impression: 1. There is no fracture or acute osseous pathology. 2. Mild periventricular osteopenia about each hand is suspicious for changes related to rheumatoid arthritis. Erosions throughout the carpus and several distal metacarpals and proximal phalanges bilaterally but more prominent on the right. [facility]-[id number] Performing Organization Address [facility] Phone Number [facility] [address] [place] [address] * XR Ankle 2 Vw Bilateral (01/10/2019 2:24 PM [employer]) Specimen Narrative Performed At Examination: XR ANKLE 2 VW BILATERAL [facility] Clinical history: M05.9 Rheumatoid arthritis with rheumatoid factorunspecified, M05.9 Comparison: None Impression: 2 views were obtained of each ankle. 1.There is no fracture or acute osseous pathology. 2. The ankle mortise is within normal limits. Mild tibiotalar degeneration which is primarily identified posteriorly on the lateral images is slightly more prominent on the left. A subchondral cyst within the posterior aspect of the distal tibia demonstrates location and appearance suggestive of a typical degenerative cyst, though early erosion cannot be excluded. There is no periventricular osteopenia. [facility]-[id number] Procedure Note Interface, Radiology Results Incoming - 01/10/2019 2:45 PM [employer] Examination: XR ANKLE 2 VW BILATERAL Clinical history: M05.9 Rheumatoid arthritis with rheumatoid factor unspecified, M05.9 Comparison: None Impression: 2 views were obtained of each ankle. 1. There is no fracture or acute osseous pathology. 2. The ankle mortise is within normal limits. Mild tibiotalar degeneration which is primarily identified posteriorly on the lateral images is slightly more prominent on the left. A subchondral cyst within the posterior aspect of the distal tibia demonstrates location and appearance suggestive of a typical degenerative cyst, though early erosion cannot be excluded. There is no periventricular osteopenia. [facility]-[id number] Performing Organization Address [facility] Phone Number [facility] [address] [place] [address] * XR Foot 2 Vw Bilateral (01/10/2019 2:23 PM [employer]) Specimen Narrative Performed At Examination: XR FOOT 2 VW BILATERAL HM [facility] Clinical history: M05.9 Rheumatoid arthritis with rheumatoid factorunspecified, M05.9 Comparison: None Impression: 2 views were obtained of each foot. 1.There is no fracture or acute osseous pathology. Slight scalloping of the medial distal aspect of the right first proximal phalanx may represent projection artifact or an early erosion. No additional erosion or periarticular osteopenia is identified. 2.No radiopaque foreign body is identified. [id number] Procedure Note Interface, Radiology Results Incoming - 01/10/2019 3:15 PM [employer] Examination: XR FOOT 2 VW BILATERAL Clinical history: M05.9 Rheumatoid arthritis with rheumatoid factor unspecified, M05.9 Comparison: None Impression: 2 views were obtained of each foot. 1. There is no fracture or acute osseous pathology. Slight scalloping of the medial distal aspect of the right first proximal phalanx may represent projection artifact or an early erosion. No additional erosion or periarticular osteopenia is identified. 2. No radiopaque foreign body is identified. [id number] Performing Organization Address City/State/Zipcode Phone Number [facility] [address] [place] [address] * CT Chest Wo Contrast (12/20/2018 2:46 PM [employer]) Specimen Narrative Performed At [facility]AMIN[facility]:J69.0 Pneumonitis due to inhalation of food and vomit, J18.9 COMPARISON:CT of the chest dated 06/12/2016 TECHNIQUE: Axial images were obtained through the chest without intravenous contrast. Coronal and sagittal reformations were obtained. Absence of contrast decreases sensitivity for detection of focal lesions and vascular pathology.Up-to-date CT equipment and radiation dose reduction techniques were utilized. FINDINGS: LUNGS and PLEURA:Ill-defined infiltrate is in the lower lobes, left greater than right. There is focal consolidation in the anterior right lower lobe. No pleural effusion. Calcified granulomata are noted bilaterally. Nodular scarring in the right upper lobe is stable in appearance. Emphysematous changes noted. HEART and MEDIASTINUM:The heart is mildly enlarged. There is prominent coronary artery atherosclerosis. The thoracic aorta is atherosclerotic but not aneurysmal. No mediastinal lymphadenopathy. BONES and SOFT TISSUES:No acute osseous abnormality or destructive osseous lesion. 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 ABDOMEN:The patient is status post cholecystectomy. There is a small hiatal hernia. Limited noncontrast images of the upper abdomen are otherwise grossly unremarkable. IMPRESSION: 1. Ill-defined infiltrates in the lower lobes representing multifocal infection or aspiration. 2. Cardiomegaly and coronary artery atherosclerosis. 3. Emphysema. [facility]-[id number] Procedure Note Interface, Radiology Results Incoming - 12/20/2018 2:59 PM [employer] EXAMINATION: CT CHEST WO CONTRAST CLINICAL HISTORY: J69.0 Pneumonitis due to inhalation of food and vomit, J18.9 COMPARISON: CT of the chest dated 06/12/2016 TECHNIQUE: Axial images were obtained through the chest without intravenous contrast. Coronal and sagittal reformations were obtained. Absence of contrast decreases sensitivity for detection of focal lesions and vascular pathology. Up-to-date CT equipment and radiation dose reduction techniques were utilized. FINDINGS: LUNGS and PLEURA: Ill-defined infiltrate is in the lower lobes, left greater than right. There is focal consolidation in the anterior right lower lobe. No pleural effusion. Calcified granulomata are noted bilaterally. Nodular scarring in the right upper lobe is stable in appearance. Emphysematous changes noted. HEART and MEDIASTINUM: The heart is mildly enlarged. There is prominent coronary artery atherosclerosis. The thoracic aorta is atherosclerotic but not aneurysmal. No mediastinal lymphadenopathy. BONES and SOFT TISSUES: No acute osseous abnormality or destructive osseous lesion. 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 ABDOMEN: The patient is status post cholecystectomy. There is a small hiatal hernia. Limited noncontrast images of the upper abdomen are otherwise grossly unremarkable. IMPRESSION: 1. Ill-defined infiltrates in the lower lobes representing multifocal infection or aspiration. 2. Cardiomegaly and coronary artery atherosclerosis. 3. Emphysema. [facility]-[id number] Performing Organization Address City/State/Zipcode Phone Number [facility] [address] [place] [address] * XR Chest 2 Vw (11/29/2018 10:35 AM [employer]) Only the most recent of 2 results within the time period is included. Specimen Narrative Performed At XR CHEST 2 [facility] CLINICAL INDICATION:J44.9 Chronic obstructive pulmonary diseaseunspecified, j44.9 COMPARISON:10/22/2018 IMPRESSION: There are stable findings consistent with right middle lobe collapse with increased opacity along the right heart border and along the right fissure anteriorly. Findings do appear slightly progressed on the lateral view from 10/09/2016 but the right middle lobe collapse was evident on exams through 06/10/2014. Stable areas of emphysema are noted with areas of nonspecific patchy peribronchiolar infiltration more prominent of the right than left lung base. Findings are suboptimally defined but appear stable and are probably postinflammatory. The heart is mildly enlarged and stable with mild atherosclerosis of aorta. Bones are demineralized with stable spondylosis. Chronic changes of COPD with postinflammatory changes in the lungs and chronic right middle lobe collapse. Thank you for allowing us to participate in the care of your patient. [facility]-[id number] Procedure Note Interface, Radiology Results Incoming - 11/29/2018 10:44 AM [employer] XR CHEST 2 [facility] CLINICAL INDICATION: J44.9 Chronic obstructive pulmonary disease unspecified, j44.9 COMPARISON: 10/22/2018 IMPRESSION: There are stable findings consistent with right middle lobe collapse with increased opacity along the right heart border and along the right fissure anteriorly. Findings do appear slightly progressed on the lateral view from 10/09/2016 but the right middle lobe collapse was evident on exams through 06/10/2014. Stable areas of emphysema are noted with areas of nonspecific patchy peribronchiolar infiltration more prominent of the right than left lung base. Findings are suboptimally defined but appear stable and are probably postinflammatory. The heart is mildly enlarged and stable with mild atherosclerosis of aorta. Bones are demineralized with stable spondylosis. Chronic changes of COPD with postinflammatory changes in the lungs and chronic right middle lobe collapse. Thank you for allowing us to participate in the care of your patient. [facility]-[id number] Performing Organization Address City/State/Zipcode Phone Number [facility] [address] [place] [address] * Us ankle brachial index (11/27/2018 3:45 PM [employer]) Specimen Narrative Performed At [facility] Lower Extremity Arterial Physiologic Report [id number] [address] [facility], [address], [place] [address] Pat.Name:SHIRA BADNA.ID:[id number] .Date: 11/27/2018 Refer.MD:DONALDO WILLAMS MD Exam Time: 3:31:00 PMStudy Type:Physiologic Leg DOBAge:1940,78YSex: MALE Sonogrphr: Anuja Lopez, RVTCPT - 4: 23347 Echo Event ID:[id number] Order ID:[id number] Reason for Study:Patient complains of bilateral leg pain with non-healing wound on right calf. Race:C SUMMARY: DOPPLER SIGNALS /ANALOG WAVEFORMS: ANALOG WAVEFORMS ARTERY RIGHT LEFT Posterior Tibial Abnormal Abnormal Dorsalis Pedis Abnormal Abnormal PRELIMINARY FINDINGS: 1.Resting ankle brachial indices suggest moderate lower extremity arterial occlusive disease, bilaterally. 2.Toe brachial index suggests mild disease on the right and moderate to severe disease on the left. See same day lower extremity arterial duplex exam. PHYSICIAN INTERPRETATION: Right leg JOAQUIN in moderate range and TBI in mild range Left leg JOAQUIN in moderate range and TBI in moderate to severe range MEASUREMENTS: PRESSURES Right Brachial Brach P134 mmHg Left Brachial Brach P141 mmHg Right Ankle PT AnklePT P104 mmHg Left Ankle PT AnklePT P 67 mmHg Right Ankle DP AnkleDP P101 mmHg Left Ankle DP AnkleDP P 71 mmHg Right Great Toe GreatToe P83 mmHg Left Great Toe GreatToe P48 mmHg Right JOAQUIN PT JOAQUIN PT0.74 Left JOAQUIN PT JOAQUIN PT0.48 Right JOAQUIN DP JOAQUIN DP0.72 Left JOAQUIN DP JOAQUIN DP 0.5 Right TBI TBI 0.59 Left TBI TBI 0.34 Signed 12/05/2018 10:05 PM Junior Rodriguez MD, RPVI Procedure Note Interface, Radiology Results In - 12/05/2018 10:06 PM [employer] [facility] Lower Extremity Arterial Physiologic Report [id number] [facility], [address], [place] [address] Pat.Name: SHIRA BANDA Pat.ID: [id number] .Date: 11/27/2018 Refer.MD: DONALDO WILLAMS MD Exam Time: 3:31:00 PM Study Type:Physiologic Leg Age: 5 1940,78Y Sex: MALE Sonogrphr: Anujaviki Lopez RVT CPT - 4: 27027 Echo Event ID:[id number] Order ID: [id number] Reason for Study:Patient complains of bilateral leg pain with non-healing wound on right calf. Race: C SUMMARY: DOPPLER SIGNALS / ANALOG WAVEFORMS: ANALOG WAVEFORMS ARTERY RIGHT LEFT Posterior Tibial Abnormal Abnormal Dorsalis Pedis Abnormal Abnormal PRELIMINARY FINDINGS: 1. Resting ankle brachial indices suggest moderate lower extremity arterial occlusive disease, bilaterally. 2. Toe brachial index suggests mild disease on the right and moderate to severe disease on the left. See same day lower extremity arterial duplex exam. PHYSICIAN INTERPRETATION: Right leg JOAQUIN in moderate range and TBI in mild range Left leg JOAQUIN in moderate range and TBI in moderate to severe range MEASUREMENTS: PRESSURES Right Brachial Brach P 134 mmHg Left Brachial Brach P 141 mmHg Right Ankle PT AnklePT P 104 mmHg Left Ankle PT AnklePT P 67 mmHg Right Ankle DP AnkleDP P 101 mmHg Left Ankle DP AnkleDP P 71 mmHg Right Great Toe GreatToe P 83 mmHg Left Great Toe GreatToe P 48 mmHg Right JOAQUIN PT JOAQUIN PT 0.74 Left JOAQUIN PT JOAQUIN PT 0.48 Right JOAQUIN DP JOAQUIN DP 0.72 Left JOAQUIN DP JOAQUIN DP 0.5 Right TBI TBI 0.59 Left TBI TBI 0.34 Signed 12/05/2018 10:05 PM Junior Rodriguez MD, RPVI Performing Organization Address City/State/Zipcode Phone Number [facility] [address] [place] [address] * CT Head Wo Contrast (10/22/2018 11:42 PM [employer]) Specimen Narrative Performed At EXAMINATION:CT HEAD WO CONTRAST [facility] CLINICAL HISTORY:Headacheacutesevereworst RYAN of life COMPARISON:CT head 05/21/2015. TECHNIQUE: Noncontrast head CT performed using radiation dose reduction techniques.Technical factors are evaluated and adjusted to ensure appropriate moderation of exposure.Automated dose management technology is applied to adjust radiation exposure while achieving a diagnostic quality image. FINDINGS: Newly appearing hyperattenuating extra-axial dural based mass measuring 8 x 4 mm is noted along the left tentorial leaflet within the quadrigeminal plate cistern, image 27 of series 2, likely reflecting a tiny meningioma. Otherwise no significant interval change appearing since the prior CT from 05/21/2018. No acute intra or extra-axial hemorrhage identified. The bhatia-white matter differentiation is preserved. The basal ganglia, thalami, midbrain, isra and cervicomedullary junction are unremarkable. No mass, mass effect, or midline shift is seen. Extensive and confluent hypoattenuation is noted throughout the periventricular and subcortical white matter, nonspecific but likely related to chronic microvascular ischemic changes.Ventricles and sulci are normal in appearance for patient's age. Basal cisterns are patent. Scattered vascular calcifications are noted throughout the right V4 segment and cavernous internal carotid arteries bilaterally. Calvarium is intact. Prior cataract lens extractions are noted bilaterally. Mild inflammatory mucosal thickening is noted along the floors the maxillary sinuses bilaterally. The remaining paranasal sinuses are unremarkable. The mastoid air cells and middle ear cavities are clear. Scalp soft tissues are unremarkable. IMPRESSION: 1.No acute intracranial abnormality identified. Similar extensive nonspecific white matter findings when compared with the prior CT from 05/21/2015, likely reflecting advanced chronic microvascular ischemic changes. 2.Interval appearance of a hyperdense left tentorial leaflet mass measuring up to 8 mm, likely reflecting a small meningioma. [facility]-[id number] Procedure Note Hm Interface, Radiology Results Incoming - 10/22/2018 11:52 PM [employer] EXAMINATION: CT HEAD WO CONTRAST CLINICAL HISTORY: Headache acute severe worst RYAN of life COMPARISON: CT head 05/21/2015. TECHNIQUE: Noncontrast head CT performed using radiation dose reduction techniques. Technical factors are evaluated and adjusted to ensure appropriate moderation of exposure. Automated dose management technology is applied to adjust radiation exposure while achieving a diagnostic quality image. FINDINGS: Newly appearing hyperattenuating extra-axial dural based mass measuring 8 x 4 mm is noted along the left tentorial leaflet within the quadrigeminal plate cistern, image 27 of series 2, likely reflecting a tiny meningioma. Otherwise no significant interval change appearing since the prior CT from 05/21/2018. No acute intra or extra-axial hemorrhage identified. The bhatia-white matter differentiation is preserved. The basal ganglia, thalami, midbrain, isra and cervicomedullary junction are unremarkable. No mass, mass effect, or midline shift is seen. Extensive and confluent hypoattenuation is noted throughout the periventricular and subcortical white matter, nonspecific but likely related to chronic microvascular ischemic changes. Ventricles and sulci are normal in appearance for patient's age. Basal cisterns are patent. Scattered vascular calcifications are noted throughout the right V4 segment and cavernous internal carotid arteries bilaterally. Calvarium is intact. Prior cataract lens extractions are noted bilaterally. Mild inflammatory mucosal thickening is noted along the floors the maxillary sinuses bilaterally. The remaining paranasal sinuses are unremarkable. The mastoid air cells and middle ear cavities are clear. Scalp soft tissues are unremarkable. IMPRESSION: 1. No acute intracranial abnormality identified. Similar extensive nonspecific white matter findings when compared with the prior CT from 05/21/2015, likely reflecting advanced chronic microvascular ischemic changes. 2. Interval appearance of a hyperdense left tentorial leaflet mass measuring up to 8 mm, likely reflecting a small meningioma. [facility]-[id number] Performing Organization Address City/State/Zipcode Phone Number [facility] [address] [place] [address] * Influenza antigen test, reflex negative to RPP (10/22/2018 10:00 PM [employer]) Influenza Negative for Influenza A/B [facility] antigen antigen. [facility] Comment: HOSPITAL Specimen Information Specimen Source: Nasopharyngeal Specimen Site: Right Specimen Nasopharyngeal - Right Performing Organization Address City/[facility] Phone Number [facility] [place] [address] [place] [address] PATHOLOGY AND GENOMIC MEDICINE [address] * ECG ED Preliminary Interpretation - Not an Order (10/22/2018 9:16 PM [employer]) Narrative Performed At Carolyn Shirley DO 10/23/2018 12:39 AM ECG ED Preliminary Interpretation - Not an Order Performed by: Carolyn Shirley DO Authorized by: Carolyn Shirley DO ECG reviewed by ED Physician in the absence of a internal grinder: yes Interpretation: Interpretation: abnormal Quality: Tracing quality:Limited by artifact Rate: ECG rate:72 ECG rate assessment: normal Rhythm: Rhythm: sinus rhythm Ectopy: Ectopy: none QRS: QRS axis:Normal QRS intervals:Wide Conduction: Conduction: abnormal Abnormal conduction: complete RBBB ST segments: ST segments:Non-specific T waves: T waves: non-specific * Smear review (10/22/2018 6:42 PM [employer]) Platelet slide Nils slt decr SAWYER review [facility] Ovalocytes Moderate [facility] Specimen Performing Organization Address [facility]ode Phone Number [facility] [address] [facility] [address] PATHOLOGY AND GENOMIC MEDICINE [facility] [id number] [place] [address] HOSPITAL * Troponin (10/22/2018 6:42 PM [employer]) Troponin <0.10 0.00 - 0.10 ng/mL [facility] Comment: [facility] 0.11 - 1.49 HOSPITAL ng/mlMay indicate increased risk of acute coronary syndrome. >=1.5 ng/ml Consistent with acute myocardial infarction. The diagnostic value of a single normal or non-diagnostic result is questionable.Serial samples at 2-6 hour intervals are required to rule out acute myocardial injury. Specimen Plasma specimen Performing Organization Address City/[facility]ode Phone Number [facility] [place] [address] PATHOLOGY AND GENOMIC MEDICINE [address] * B natriuretic peptide (10/22/2018 6:42 PM [employer]) BNP 126 (H) 0 - 100 pg/mL [facility] Specimen Blood Performing Organization Address [facility] [place] [address] PATHOLOGY AND GENOMIC MEDICINE [address] * ECG 12 lead (10/22/2018 6:34 PM [employer]) Ventricular 72 [facility] rate Atrial rate 72 [facility] SD interval 154 [facility] QRSD interval 134 [facility] QT interval 402 [facility] QTC interval 440 [facility] P axis 1 -1 [facility] QRS axis 1 83 [facility] T wave axis 12 [facility] EKG impression Sinus rhythm with premature H MUSE supraventricular complexes-Right bundle branch block-Abnormal ECG-In automated comparison with ECG of 02-AUG-2015 18:20,-premature supraventricular complexes are now present-T wave inversion now evident in Inferior leads- Specimen Narrative Performed At Performing Organization Address City/[facility] Phone Number [facility] MUSE [address] [place] [address] * IR Lumbar Puncture by Radiology (10/07/2018 1:59 PM [employer]) Specimen Narrative Performed At EXAMINATION:IR LUMBAR PUNCTURE HM [facility] CLINICAL HISTORY:G62.9 Polyneuropathyunspecified, neuropathy COMPARISON:None. PROCEDURE After informed consent was obtained, the patient was placed in the prone position on the Fluoroscopy table. The back as prepped and draped in the usual manner and local anesthesia was made by infiltration of 1% Lidocaine. Using fluoroscopic guidance and under sterile technique, lumbar puncture was made at the level of theL3-4 disc space, by means of [id number] needle. Clear colorlessCSF was removed for laboratory analysis, as rquested. The patient tolerated the procedure well, without side effects or complications. Last fluoroscopic image was saved. Total fluoroscopy time: 43 seconds . IMPRESSION: Uneventful fluoroscopically guided lumbar puncture. [facility]-[id number] Procedure Note Hm Interface, Radiology Results Incoming - 10/08/2018 6:50 PM [employer] EXAMINATION: IR LUMBAR PUNCTURE CLINICAL HISTORY: G62.9 Polyneuropathy unspecified, neuropathy COMPARISON: None. PROCEDURE After informed consent was obtained, the patient was placed in the prone position on the Fluoroscopy table. The back as prepped and draped in the usual manner and local anesthesia was made by infiltration of 1% Lidocaine. Using fluoroscopic guidance and under sterile technique, lumbar puncture was made at the level of the L3-4 disc space, by means of a Gauge 22 spinal needle. Clear colorless CSF was removed for laboratory analysis, as rquested. The patient tolerated the procedure well, without side effects or complications. Last fluoroscopic image was saved. Total fluoroscopy time: 43 seconds . IMPRESSION: Uneventful fluoroscopically guided lumbar puncture. [facility]-[id number] Performing Organization Address City/State/Zipcode Phone Number [facility] [address] [place] [address] * IgG synthesis rate study (10/07/2018 1:40 PM [employer]) IgG albumin 0.10 0.00 - 0.23 SA[facility] ratio, CSF [facility] IgG index, CSF 0.40 0.01 - 0.63 [facility] IgG synthetic -1.34 -9.90 - 3.30 mg/day SAWYER rate [facility] Q-albumin 5.02 2.50 - 9.00 SAWYER ratio, CSF [facility] IgG, CSF 1.85 1.00 - 3.00 mg/dL [facility] Albumin, CSF 19.07 10.00 - 30.00 mg/dL [facility] IgG 926 700 - 1,600 mg/dL [facility] Albumin, S 3,800.0 3,640.0 - 5,304.0 SAWYER mg/dL [facility] Specimen Serum Performing Organization Address City/State/Zipcode Phone Number [facility] DEPARTMENT OF [address] [place] [address] PATHOLOGY AND GENOMIC MEDICINE [facility] MORMON [address] [place] [address] * LDH, CSF (10/07/2018 1:40 PM [employer]) Pathologist [facility] LDH, CSF 26 U/L SA[facility]ER Comment: MORMON Analysis performed on INCHRON 8000 analyzer. This is not an approved methodology for this specimen type;accuracy and clinical significance uncertain. Specimen Cerebrospinal fluid Performing Organization Address City/[facility]ode Phone Number [facility] DEPARTMENT OF [address] [place] [address] PATHOLOGY AND GENOMIC MEDICINE [facility] M[place]MON[address] * Lyme disease reflexive panel, CSF (10/07/2018 1:40 PM [employer]) [facility] B. burgdorferi 0.11 <=0.99 [facility] ARIANA, CSF Comment: When the Borrelia burgdorferi Abs, Total by ARIANA result is negative, no further testing is done. INTERPRETIVE INFORMATION: Borrelia burgdorferi Abs, ARIANA, CSF 0.99 LANDRY or less: ......... Negative - Antibody to B. burgdorferi not detected. 1.00 - 1.20 LANDRY ........... Equivocal - Repeat testing in 10-14 days may be helpful. 1.21 LANDRY or greater: ...... Positive - Probable presence of antibody to B. burgdorferi detected. The detection of antibodies to B. burgdorferi in cerebrospinal fluid may indicate central nervous system infection.However, consideration must be given to possible contamination by blood or transfer of serum antibodies across the blood-brain barrier. Current CDC recommendations for the serologic diagnosis of Lyme disease are to screen with a polyvalent ARIANA test and confirm equivocal and positive results with immunoblot.Both IgM and IgG immunoblots should be performed on samples less than 4 weeks after appearance of erythema migrans.Only IgG immunoblot should be performed on samples greater than 4 weeks after the disease onset. IgM immunoblot in the chronic stage is not recommended and does not aid in the diagnosis of neuroborreliosis or chronic Lyme disease.Please submit requests for appropriate immunoblot testing within 10 days. Test developed and characteristics determined by [facility]. See Compliance Statement B: REES46/CS Performed by [facility], [address] [place] [address] [email or web address], Terell White MD - Lab. Director Specimen Cerebrospinal fluid Narrative Performed At [facility] TEST: B. burgdorferi Abs by ARIANA, CSF [facility] Performing Organization Address [facility] Centercode Phone Number [facility] [address] [place] [address] [facility] [address] [place] [address] * CSF cell count with differential (10/07/2018 1:40 PM [employer]) Pathologist [facility] Color, CSF Colorless [facility] Appearance, CSF Clear [facility] CSF supernatant Colorless [facility] RBC, CSF 0 0 - 1 /CMM [facility] WBC, CSF 1 0 - 5 /CMM [facility] CSF mononuclear See DiffComment: CSF Diff not [facility] performed when wbc count is [facility] less than 5. [facility] Specimen Cerebrospinal fluid Performing Organization Address [facility] Centercowy Phone Number [facility] [address] [facility] [address] PATHOLOGY AND [facility] MEDICINE [address] * VDRL, CSF screen (10/07/2018 1:40 PM [employer]) Pathologist [facility] VDRL, CSF Non-reactive Non-reactive [facility] Specimen Cerebrospinal fluid Performing Organization Address City/[facility]ode Phone Number [facility] DEPARTMENT OF [address] [place] [address] PATHOLOGY AND [facility] MEDICINE [address] * Protein, CSF (10/07/2018 1:40 PM [employer]) Pathologist [facility] Protein, CSF 37 12 - 60 mg/dL [facility] Specimen Cerebrospinal fluid Performing Organization Address [facility] Centercode Phone Number [facility] DEPARTMENT [place] [address] [place] [address]. [place] [address] PATHOLOGY AND [facility] MEDICINE [facility] [address] * Myelin basic protein (10/07/2018 1:40 PM [employer]) Pathologist [facility] Myelin basic 4.19 0.00 - 5.50 ng/mL [facility] protein Comment: INTERPRETIVE INFORMATION:Myelin Basic Protein Test developed and characteristics determined by [facility]. See Compliance Statement D: REES46/CS Performed by [facility], [address] [place] [address] [email or web address], Terell White MD - Lab. Director Specimen Cerebrospinal fluid Performing Organization Address City/State/Zipcode Phone Number [facility] [address] [place] [address] [facility] [address] [place] [address] * Glucose level, CSF (10/07/2018 1:40 PM [employer]) Glucose, CSF 58 40 - 70 mg/dL [facility] Specimen Cerebrospinal fluid Performing Organization Address City/State/Zipcode Phone Number [facility] [address] [place] [address] PATHOLOGY AND GENOMIC MEDICINE [facility] [address] [address] * MRI Lumbar Spine Wo Contrast (06/29/2018 10:05 AM CDT) Specimen Narrative Performed At [facility] EXAMINATION:MRI LUMBAR SPINE WO CONTRAST COMPARISON:April 03, 2017. CLINICAL HISTORY:M05.79 Rheumatoid arthritis with rheumatoid factor of multiple sites without organ or systems involvement, Z51.81 Encounter for therapeutic drug level monitoring, [id number] conservative txpersistent sx COMMENTS:Sagittal and axial MR images of the lumbar spine were obtained. FINDINGS:The lowest functional disc level is assumed to be L5-S1. L5-S1 shows minimal right-sided facet disease. L4-5 shows mild facet disease and ligament flavum thickening. There is a very shallow central disc protrusion again noted. Minimal narrowing of the neural foramina bilaterally again identified. L3-4 shows mild facet disease mild disc bulge. L2-3 shows left lateral disc protrusion. There is mild disc bulge. The minimal narrowing left-sided foramen is again noted. There is mild facet disease. The conus ends at the L1 level. IMPRESSION:Stable degenerative change compared to the previous study. No fracture or subluxation. [facility]-[id number] Procedure Note Interface, Radiology Results Incoming - 06/29/2018 10:12 AM CDT EXAMINATION: MRI LUMBAR SPINE WO CONTRAST COMPARISON: April 03, 2017. CLINICAL HISTORY: M05.79 Rheumatoid arthritis with rheumatoid factor of multiple sites without organ or systems involvement, Z51.81 Encounter for therapeutic drug level monitoring, Radiculopathy 6wks conservative tx persistent sx COMMENTS: Sagittal and axial MR images of the lumbar spine were obtained. FINDINGS: The lowest functional disc level is assumed to be L5-S1. L5-S1 shows minimal right-sided facet disease. L4-5 shows mild facet disease and ligament flavum thickening. There is a very shallow central disc protrusion again noted. Minimal narrowing of the neural foramina bilaterally again identified. L3-4 shows mild facet disease mild disc bulge. L2-3 shows left lateral disc protrusion. There is mild disc bulge. The minimal narrowing left-sided foramen is again noted. There is mild facet disease. The conus ends at the L1 level. IMPRESSION: Stable degenerative change compared to the previous study. No fracture or subluxation. [facility]-[id number] Performing Organization Address City/[facility] Phone Number [facility] [address] [place] [address] * Urinalysis, automated with microscopy (06/27/2018 12:00 AM CDT) RAKAN Beasley Comment: [facility] * Test Not Performed. * * Improper specimen submitted.* * Please re-submit in a [place] * * yellow-top urinalysis transport * * tube. * Specimen Urine Resulting Agency Comment Performing Organization Information: Site ID: [id number] Name: [facility] Address: [address] [place] [id number] Director: Suri Sloan Performing Organization Address City/[facility] Cent[facility]ode Phone Number [employer] [facility] [address] [place] [address] * Sedimentation rate (06/27/2018 12:00 AM CDT) Only the most recent of 2 results within the time period is included. Sedimentation 14 < OR=20 mm/h Asterion [facility] Specimen Blood Resulting Agency Comment Performing Organization Information: Site ID: [id number] Name: [facility] Address: [address] [place] [phone] Director: Suri Sloan Performing Organization Address City/State/Zipcode Phone Number [employer] [address] [address] * C-reactive protein (06/27/2018 12:00 AM CDT) Only the most recent of 2 results within the time period is included. CRP 3.0 <8.0 mg/L [facility] Specimen Blood Resulting Agency Comment Performing Organization Information: Site ID: [id number] Name: [facility] Address: [address] [place] [id number] Director: Suri Sloan Performing Organization Address [facility] Phone Number [employer] [address] [address] * Estimated GFR (05/23/2018 9:33 AM CDT) GFR Non Af Amer 64 mL/min/1.73 m2 [facility] DEPARTMENT OF PATHOLOGY AND GENOMIC MEDICINE GFR Af Amer 78 mL/min/1.73 m2 [facility] DEPARTMENT Comment: OF PATHOLOGY Chronic kidney disease: <60 AND GENOMIC mL/min/1.73m2 MEDICINE Kidney failure: <15 mL/min/1.73m2 The estimated GFR is calculated from the IDMS-traceable Modification of Diet in Renal Disease Equation. The accuracy of the calculation is poor when the creatinine is normal. Calculated values >90 mL/min/1.73m2 are not reported. This equation has not been validated in children (<18 years), women, the elderly (>70 years), or ethnic groups other than Caucasians and Americans. Specimen Plasma specimen Performing Organization Address City/State/Zipcode Phone Number [facility] DEPARTMENT [place] [address] [place] [address] PATHOLOGY AND GENOMIC MEDICINE after 05/12/2018 Insurance Type Payer Benefit Subscriber ID Effective Phone Address Plan / Dates Group Medicare MEDICARE MEDICARE xxxxxxxxxxx 2003-P [facility] PART A AND resent [place] B Medicaid MEDICAID MEDICAID xxxxxxxxx 2012-P resent Advance Directives Patient has advance care planning documents on file. For more information, maegan castañeda contact: Harvey Aguirre [address] [place] [address]
--- OUTSIDE RECORDS SUMMARY | 2019-05-13 16:55 | XMS REPORT ---
Author Author [facility] Address Unknown Phone Unavailable Care Team Providers Care Stunner Name Role Phone Laurie PRESLEY Unavailable Unavailable Problems This patient has no known problems. Allergies, Adverse Reactions, Alerts This patient has no known allergies or adverse reactions. Medications This patient has no known medications. Results Test Description Test Time Test Comments Text Results Atomic Results Result Comments GASTRIC EMPTYING 2019-04-23 19:59:00 [place] [address] Patient Name: SHIRA MATTHEWS MR #: [id number] : 1940 Age/Sex: 78/M Req #: [id number] [facility] Physician: Ordered by: MELI PRESLEY MD Report #: [id number] Location: [place] Room/Bed: Procedure: [id number] NM/GASTRIC EMPTYING Exam Date: 04/23/19 Exam Time: 929 REPORT STATUS: Signed Solid-phase gastric emptying study Reason for ex amination: K14.0 Abdominal bloating The protocol used for this study is based on the Consensus Recommendations for Gastric Scintigraphy by the [place] [employer] Society and the Society of Nuclear Medicine. Clinical information: The patient is not diabetic. The patient has not had previous gastrointestinal surgery other than cholecystectomy in 2015. The patient is not on any medications expected to affect gastric motility. The patient has been fasting for at least 6 hours prior to this exam. Radiopharmaceutical: Tc-99m sulfur colloid 1 mCi Report: The radiopharmaceutical was added to 1/2 cup egg whites that were then prepared and served with 2 pieces of white bread toasted, 30 grams of jam and 4 ounces of water. The patient took 90% of the meal. Images were obtained of the abdomen in the anterior and posterior projections at 10 minutes post the meal and at 2 and 3 hours. Uptake was determined from the geometric mean of the an terior and posterior counts and the counts were corrected for decay of the radiolabel. The percent gastric retention of the labeled meal at: 1 hour measurement was not obtained due to technical issues but presumably greater than 30% based on the 2-hour measurement. 2 hours was 30% (normal <60%) 3 hours was 3% (normal <30%) 4 hour measurement not obtained because gastric retention was less than 10% at 3 hours. Impression: The pattern of gastric emptying is normal. The findings do not support the clinical diagnosis of gastroparesis. Signed by: Dr. Esther Sykes M.D. on 04/23/2019 8:03 PM Dictated By: ESTHER SYKES MD 02 Transcribed By: CHANTEL on 04/23/192002 COPY TO: MELI PRESLEY MD
[2019-05-13] MEDS ORDERED: ASPIRIN 81 MG CHEW TAB PO ONE (17:30)
[2019-05-13 17:50] LABS: BASOPHILS % 0.3 % (0.0-1.0); EOSINOPHILS # (AUTO) 0.1 (0.0-0.4); EOSINOPHILS % 1.6 % (0.0-6.0); HEMATOCRIT 31.5 % (38.2-49.6); HEMOGLOBIN 10.7 g/dL (14.0-18.0); LYMPHOCYTES # (AUTO) 1.2 (1.0-3.2); MEAN CORPUSCULAR HEMOGLOBIN 29.3 pg (28-32); MEAN CORPUSCULAR VOLUME 86.3 fL (81-99); MONOCYTES # (AUTO) 0.5 (0.2-0.8); MONOCYTES % 7.4 % (4.4-11.3); NEUTROPHILS # (AUTO) 4.4 (2.1-6.9); NEUTROPHILS % 71.4 % (38.7-80.0); PLATELET COUNT 126 x10e3/uL (140-360); RED BLOOD COUNT 3.65 x10e6/uL (4.3-5.7); RED CELL DISTRIBUTION WIDTH 16.1 % (11.7-14.4)
[2019-05-13 17:52] LABS: BILIRUBIN,URINE NEGATIVE (NEGATIVE); CLARITY,URINE CLEAR (CLEAR); COLOR,URINE YELLOW (YELLOW); KETONES,URINE NEGATIVE (NEGATIVE); LEUKOCYTE ESTERASE ,URINE NEGATIVE (NEGATIVE); NITRITE,URINE NEGATIVE (NEGATIVE); PROTEIN,URINE DIPSTICK NEGATIVE (NEGATIVE); URINE UROBILINOGEN 0.2 mg/dL (0.2 - 1)
[2019-05-13 18:05] LABS: ALBUMIN 3.5 g/dL (3.5-5.0); ALBUMIN/GLOBULIN RATIO 1.1 (0.8-2.0); ANION GAP 14.9 mmol/L (8-16); CALCIUM 8.9 mg/dL (8.4-10.2); CREATININE, SERUM 2.76 mg/dL (0.72-1.25)
[2019-05-13 18:08] LABS: POTASSIUM 2.9 mmol/L (3.5-5.1)
[2019-05-13 18:12] LABS: CREATINE KINASE MB 2.7 ng/mL (0-5.0)
[2019-05-13 18:16] LABS: WBC,URINE (MAN) 0-5 /HPF (0-5)
[2019-05-13 18:17] LABS: EPITHELIAL CELLS,URINE RARE /LPF; RENAL EPITHELIAL CELLS,URINE RARE
[2019-05-13] MEDS ORDERED: POTASSIUM CHLORIDE 20 MEQ TAB CR PO STA (18:32)
[2019-05-13 18:36] LABS: AMYLASE 51 U/L (25-125); LIPASE 14 U/L (8-78)
--- NOTE | 2019-05-13 18:42 | Diagnostic Imaging Report ---
EXAMINATION: ABDOMEN ACUTE SERIES W/PA CXR INDICATION: Constipation COMPARISON: None FINDINGS: TUBES and LINES: None. LUNGS: Lungs are well inflated. Chronic additional opacities are visualized. Questionable airspace opacities in both lung bases. PLEURA: No pleural effusion or pneumothorax. HEART AND MEDIASTINUM: Cardiac size is mildly enlarged. There are atherosclerotic calcifications within the aorta. BONES AND SOFT TISSUES: There are degenerative changes in the thoracic spine. Soft tissues are unremarkable. ABDOMEN: No free air under the diaphragm. A left common iliac and left external iliac arterial stents. Surgical clips in the right upper quadrant abdomen, likely cholecystectomy clips. Severe vascular calcifications. Moderate amount stool in the right colon and transverse colon and splenic flexure. Relative possibly of stool in the descending colon and sigmoid colon. No dilated loops of small bowel. IMPRESSION: 1. Chronic lung changes. Possible superimposed pneumonia in both lung bases. No available comparison at this time. 2. Moderate stool in the right colon and transverse colon. No evidence of bowel obstruction. 3. Severe vascular calcifications. Signed by: Dr. Rakesh Francisco M.D. on 05/13/2019 6:38 PM
[2019-05-13] MEDS ORDERED: KCL 20MEQ/.9 SOD CHL 1,000 ML IV ONE (18:45)
[2019-05-13] MEDS: KCL 20MEQ/.9 SOD CHL 1,000 ML IV SCH (19:29)
[2019-05-13] MEDS ORDERED: CEFTRIAXONE SOD 1 GM/NS 50 ML 50 ML IV SCH (19:30)
[2019-05-13] MEDS ORDERED: ONDANSETRON HCL INJ 2MG/ML 2ML 2 MG/ML VIAL IV PRN (19:45)
[2019-05-13] MEDS ORDERED: ALBUTEROL/IPRATROPIUM 3 ML NEB NEB ONE (19:45)
--- OUTSIDE RECORDS SUMMARY | 2019-05-13 20:00 | XMS REPORT | Clinical Summary ---
Author Author [facility] [employer] Organization [facility] [employer] Address Unknown Phone Unavailable Care Team Providers Care Manager Cleaning Name Role Phone Kartik Mary MD PCP [...] (40 mg/mL) 7 suspension 07/31/2018 Discontinued omega 3-nwn-aec-fish oil Take 1,200 mg 90 capsule 1 [...] Active Problems Problem Noted Date Atheroscler of [place] artery of both legs with intermit claudication 01/22/2019 Atherosclerosis of [place] artery of both lower extremities with 12/24/2018 intermittent claudication Overview: Added automatically from request for surgery [id number] Other chronic pain 12/21/2017 Claudication of calf muscles 09/25/2017 PAD (peripheral artery disease) 09/25/2017 Myalgia 08/21/2017 Bilateral primary osteoarthritis of hip 08/02/2017 Bilateral hip pain 08/02/2017 Emirati speaking patient 08/02/2017 Non-Faroese speaking patient 08/02/2017 Bilateral hip joint arthritis [...] Bismuth, Jean, MD PAD (peripheral artery disease) ([facility]); Atherosclerosis of [place] artery of both lower extremities with intermittent claudication (HCC) 02/07/2019 Hospital Radiology Encounter Margarito Billingsley NP Bismuth, Jean, MD Pain and swelling of lower leg, right 02/07/2019 Hospital Radiology Encounter Margarito Billingsley NP PAD (peripheral artery disease) ([facility]) (Primary Dx); Atherosclerosis of [place] artery of both lower extremities with intermittent claudication ([facility]); Pain and swelling of lower leg, right; Claudication of calf muscles (HCC) 02/07/2019 Office Visit Cardiovascular Kristine Adan MA Atherosclerosis of [place] artery of both lower extremities with intermittent claudication (HCC) (Primary Dx); PAD (peripheral artery disease) (HCC) 02/07/2019 Orders Only Cardiovascular Kristine Adan MA PAD (peripheral artery disease) ([facility]) (Primary Dx); Atherosclerosis of [place] artery of both lower extremities with intermittent claudication (HCC) 02/07/2019 Orders Only Cardiovascular Donaldo Willams MD 01/22/2019 Office Visit General Surgery Abbe Walker Jr., MD 01/22/2019 Anesthesia General Surgery Event Donaldo Willams MD LEFT LOWER EXTREMITY ANGIOGRAM WITH SFA, POPLITEAL, AND ILIAC RECANALIZATION AND STENTING 01/22/2019 Surgery General Surgery Donaldo Willams MD 01/22/2019 Office Visit General Surgery Donaldo Willams MD Atherosclerosis of [place] artery of both lower extremities with intermittent claudication (HCC) 01/22/2019 Hospital General Surgery Encounter Donaldo Willams MD Atherosclerosis of [place] artery of both lower extremities with intermittent claudication (HCC) 01/21/2019 Pre-Admit Pre-Admission Testing Testing Appointment Abimbloa Morillo MD Age-related osteoporosis without current pathological [...] Telephone Cardiovascular Amirah Gamez, RN Atherosclerosis of [place] artery of both lower extremities with intermittent claudication (HCC) (Primary Dx) 12/24/2018 Prep for Cardiovascular Surgery Amirah Gamez, RN Atherosclerosis of [place] artery of both lower extremities with intermittent claudication (HCC) (Primary Dx) 12/24/2018 Orders Only Cardiovascular Lino Domínguez MD Aspiration pneumonia, unspecified aspiration pneumonia type, unspecified laterality, unspecified part of lung (HCC) 12/20/2018 Hospital Radiology Encounter Donaldo Willams MD PAD (peripheral artery disease) ([facility]) (Primary Dx) 12/19/2018 Office Visit Cardiovascular Iron Blackburn MA 12/09/2018 Telephone Cardiovascular Donaldo Willams MD PAD (peripheral artery disease) ([facility]); Atherosclerosis of [place] artery of both lower extremities with intermittent claudication (HCC) 11/29/2018 Hospital Radiology Encounter Lino Domínguez MD Obstructive chronic bronchitis without exacerbation (HCC) 11/29/2018 Hospital Radiology Encounter Lino Domínguez MD Obstructive chronic bronchitis without exacerbation (HCC) (Primary Dx); Aspiration pneumonia, unspecified aspiration pneumonia type, unspecified laterality, unspecified part of lung (HCC) 11/29/2018 Transcribe Access Orders Dnoaldo Willams MD Atherosclerosis of [place] artery of both lower extremities with intermittent claudication (HCC) (Primary Dx); PAD (peripheral artery disease) ([facility]) 11/28/2018 Office Visit Cardiovascular Kristine Adan MA Atherosclerosis of [place] artery of both lower extremities with intermittent claudication (HCC) (Primary Dx); PAD (peripheral artery disease) ([facility]) 11/28/2018 Orders Only Cardiovascular Donaldo Willams MD 11/28/2018 Abstract Cardiovascular Kristine Adan MA Atherosclerosis of [place] artery of both lower extremities with intermittent claudication ([facility]) (Primary Dx); PAD (peripheral artery disease) ([facility]) 11/26/2018 Orders Only Cardiovascular Amirah Gamez RN 11/07/2018 Telephone Cardiovascular Althea Flores MD PAD (peripheral artery disease) ([facility]) (Primary Dx); Sensory neuropathy; Myalgia 10/25/2018 Office Visit Neurology Carolyn Shirley DO Hypertension, unspecified type (Primary Dx); Acute pneumonitis; COPD exacerbation ([facility]); Nonintractable headache, unspecified chronicity pattern, unspecified headache type 10/22/2018 Emergency Emergency Medicine - 10/23/2018 10/22/2018 Travel Chaparrita Lopez MD Rheumatoid arthritis involving multiple sites with positive rheumatoid factor ([facility]); Encounter for monitoring of methotrexate therapy; Pulmonary interstitial fibrosis ([facility]); Epigastric pain; Weight loss; Poor appetite; Neuropathy [...] Intermittent claudication 05/16/2018 Orders Only Rheumatology Catherine Oodm MA 05/15/2018 Telephone Rheumatology after 05/12/2018 Family [...] Description Date [place] [address] [facility] [address] [place] [address] [phone] 05/16/2019 [place] [address] [facility] [address] [place] [address] [phone] 05/19/2019 [place] [address] [facility] [address] [place] [address] [phone] Nicolas Krishnan PT 05/20/2019 Office Visit Physical Therapy Health Maintenance Due Date Last Done Comments SHINGLES VACCINES (#1) 1988 65+ PNEUMOCOCCAL VACCINE 2003 (1 of 2 - PCV13) INFLUENZA VACCINE 06/05/2019 Implants Device Identifier Shelf Expiration Date Model / Serial / Lot Implanted Type Area Manufactur er 11/28/2019 [id number] / / [id number] Stent [employer]il[employer] Ptx Drug Eluted 6fr 6 Surgical N/A: N/A COOK X 140mm 0.035in - [id number] Stents PERIPHERAL Implanted: Qty: 1 on 01/22/2019 by Donaldo Barraza MD ON 05/06/2020 [id number] / / [id number] Stent [employer] Drug Eluted 6fr 6 X Surgical N/A: N/A COOK 100mm .035in - [id number] Stents PERIPHERAL Implanted: Qty: 1 on 01/22/2019 by Donaldo Barraza MD ON 12/05/2019 [id number] / / [id number] Stent [employer] Drug Eluted 6fr 8 X Surgical N/A: N/A COOK 60mm .035in - [id number] Stents PERIPHERAL Implanted: Qty: 1 on 01/22/2019 [...] 4:00 PM CDT disease) (HCC) Atherosclerosis of [place] artery of both lower extremities with intermittent [...] procedure well with no immediate complicati ons NC AN ELECTIVE Routine 01/22/2019 ENDOTRACHEAL AIRWAY 10:43 [...] TYPE AND SCREEN Routine 01/21/2019 Atherosclerosis of [place] 1:15 PM CDT artery of both lower extremities with intermittent claudication (HCC) ESTIMATED GFR Routine 01/21/2019 1:15 PM CDT HC COMPLETE BLD COUNT Routine 01/21/2019 Atherosclerosis of [place] W/AUTO DIFF 1:15 PM CDT artery of both lower extremities with intermittent claudication (HCC) BASIC METABOLIC PANEL Routine 01/21/2019 Atherosclerosis of [place] 1:15 PM CDT artery of both lower extremities with intermittent claudication (HCC) PROTHROMBIN TIME WITH INR Routine 01/21/2019 Atherosclerosis of [place] 1:15 PM CDT artery of both lower extremities with intermittent claudication (HCC) PARTIAL THROMBOPLASTIN Routine 01/21/2019 Atherosclerosis of [place] TIME (PTT) 1:15 PM CDT artery of both lower extremities with intermittent claudication (HCC) URINE CULTURE Routine 01/21/2019 1:00 PM CDT URINALYSIS SCREEN AND Routine 01/21/2019 Atherosclerosis of [place] MICROSCOPY, WITH REFLEX 12:36 PM CDT artery [...] 1 HOUR Routine 01/14/2019 8:10 AM CDT NC AN ELECTIVE Routine 01/14/2019 SUPRAGLOTTIC AIRWAY 7:49 [...] BILATERAL Routine 01/10/2019 Seropositive rheumatoid 2:25 PM FIRE [employer]SE CURER arthritis (HCC) XR HANDS 3 VW BILATERAL Routine 01/10/2019 Seropositive rheumatoid 2:24 PM FI[employer]SE CURER arthritis (HCC) XR ANKLE 2 VW BILATERAL Routine 01/10/2019 Seropositive rheumatoid 2:24 PM FI[employer] CURER arthritis (HCC) XR FOOT 2 VW BILATERAL Routine 01/10/2019 Seropositive rheumatoid 2:23 PM FI[employer] CURER arthritis (HCC) CT CHEST WO CONTRAST STAT 12/20/2018 Aspiration pneumonia, 2:46 PM FI[employer]SE CURER unspecified aspiration pneumonia type, unspecified laterality, unspecified part of lung (HCC) CT ANGIOGRAM ABDOMINAL Routine 11/29/2018 PAD (peripheral artery AORTA AND BILATERAL 12:48 PM FIRE HOSE CURER disease) (HCC) ILIOFEMORAL RUNOFF W WO Atherosclerosis of [place] CONTRAST artery of both lower extremities with intermittent claudication (HCC) ESTIMATED GFR Routine 11/29/2018 11:14 AM FI[employer]SE [employer]ER POC CREATININE Routine 11/29/2018 11:14 AM FI[employer]SE CURER XR CHEST 2 VW Routine 11/29/2018 Obstructive chronic 10:35 AM FI[employer]ER bronchitis without exacerbation (HCC) US ANKLE BRACHIAL INDEX Routine 11/27/2018 PAD (peripheral artery 3:45 PM FIRE HOSE CURER disease) (HCC) Atherosclerosis of [place] artery of both lower extremities with intermittent claudication (HCC) US DUPLEX ARTERIAL LOWER Routine 11/27/2018 PAD (peripheral artery EXTREMITY BILATERAL 3:45 PM FIRE HOSE CURER disease) (HCC) Atherosclerosis of [place] artery of both lower extremities with intermittent claudication (HCC) CT HEAD WO CONTRAST STAT 10/22/2018 11:42 PM FIRE [employer]SE CURER RESPIRATORY PATHOGEN Routine 10/22/2018 PANEL 10:00 PM FI[employer]ER INFLUENZA ANTIGEN TEST, Routine 10/22/2018 REFLEX NEGATIVE TO RPP 10:00 PM FI[employer]ER ECG ED PRELIMINARY Routine 10/22/2018 INTERPRETATION 9:16 PM FIRE [employer]SE CURER XR CHEST 1 VW PORTABLE STAT 10/22/2018 8:08 PM FI[employer]SE [employer]ER SMEAR REVIEW STAT 10/22/2018 6:42 PM FIRE [employer]SE CURER ESTIMATED GFR STAT 10/22/2018 6:42 PM FI[employer]SE CURER PROTHROMBIN TIME WITH INR STAT 10/22/2018 6:42 PM [employer]SE CURER PARTIAL THROMBOPLASTIN STAT 10/22/2018 TIME (PTT) 6:42 PM FIRE [employer]SE CURER B NATRIURETIC PEPTIDE STAT 10/22/2018 6:42 PM FI[employer]SE CURER TROPONIN STAT 10/22/2018 6:42 PM FI[employer]SE CURER COMPREHENSIVE METABOLIC STAT 10/22/2018 PANEL 6:42 PM FI[employer]SE CURER HC COMPLETE BLD COUNT STAT 10/22/2018 W/AUTO DIFF 6:42 PM FIRE [employer]SE CURER ECG 12-LEAD STAT 10/22/2018 6:34 PM [employer]ER IR LUMBAR PUNCTURE Routine 10/07/2018 Sensory neuropathy 1:59 PM [employer] [facility]ER CYTOLOGY Routine 10/07/2018 (NON-GYNECOLOGICAL) 1:40 PM [employer]SE [employer]ER REQUEST LYME DISEASE REFLEXIVE Routine 10/07/2018 PANEL, CSF 1:40 PM FI[employer] CURER GLUCOSE LEVEL, CSF Routine 10/07/2018 1:40 PM [employer]ER PROTEIN, CSF Routine 10/07/2018 1:40 PM [employer] CURER CSF CELL COUNT WITH Routine 10/07/2018 DIFFERENTIAL 1:40 PM [employer]ER MYELIN BASIC PROTEIN Routine 10/07/2018 1:40 PM FI[employer]SE CURER LDH, CSF Routine 10/07/2018 1:40 PM FI[employer]ER VDRL, CSF SCREEN Routine 10/07/2018 1:40 PM FI[employer]SE [employer]ER IGG SYNTHESIS RATE STUDY Routine 10/07/2018 1:40 PM FIRE [employer]SE CURER MRI LUMBAR SPINE WO Routine 06/29/2018 Rheumatoid [...] with sciaticaleft side, G89.29 Other chronic pain, Ojehrislevwpo2asjiq red flagsno prior management, back pain COMPARISON:06/29/2018 [...] described above, greatest at L4-5 and L5-S1. [facility]-[id number] Procedure Note Hm Interface, Radiology Results - [...] described above, greatest at L4-5 and L5-S1. [facility]-[id number] Performing Organization Address City/State/Zipcode Phone Number [facility] [address] [place] [address] * Estimated GFR (05/05/2019 5:04 PM CDT) Only the most recent of 5 results within the time period is included. [facility] Estimated GFR 84 mL/min/1.73 m2 [place] Comment: CONFUCIANIST [facility] SAULT G1 RANCH >=90 Normal or high G2 60-89Mildly decreased F5p69-90 Mildly to moderately decreased Q7d15-86 Moderately to severely decreased G4 15-29Severely decreased G5 <15Kidney failure The eGFR was calculated using the Chronic Kidney Disease Epidemiology Collaboration (CKD-EPI) equation. Interpretation is based on recommendations of the National Kidney Foundation-Kidney Disease Outcomes Quality Initiative (NKF-KDOQI) published in 2014. Specimen Blood Performing Organization Address City/State/[place]code [place] [phone] [place] [address] PATHOLOGY AND GENOMIC MEDICINE, [facility] EMERGENCY CARE [facility] [address] [address] [place] [place] [phone] [facility] * POC creatinine (05/05/2019 5:04 PM CDT) Only the most recent of 2 results within the time period is included. Pathologist [facility] POC creatinine 0.8 0.7 - 1.2 mg/dl [place] Comment: [facility] Meter ID: [id number] [facility] Consumer Educator: Elpidio Abdi Specimen Blood Performing Organization Address City/[facility]/Zipcode Phone Number [facility] [place] [address] [place] [address] PATHOLOGY AND GENOMIC MEDICINE [facility] [address] * EMG general request (04/24/2019 4:26 [...] At NERVE CONDUCTION AND ELECTROMYOGRAPHY REPORT Neurological [place], [facility]th [facility]; [place], [place] [address]; Name: Shira Banda Date of Procedure: April [...] Dist. amp. Prox Amp. Distance Velocity Right Xlvclqqmruk79.0 Left Motor Nerves Dist. Lat. Prox lat. D. amp. P. Amp.Dist. Velocity Left Peroneal EDB 4.012.71.3 0.228.5 32.8 Left Tibial4.814.36.8 4.132.5 34.5 Left Peroneal F Wave 58.0 Left Tibial F Wave 57.7 Left Sensory Nerves Dist. Lat. Prox lat. Dist. amp. Prox Amp. Distance Velocity Left Sxhoqeiupjw05.0 Electromyography (Motor Unit in mV; H=High; L=Low; [...] focal colitis, either infectious, inflammatory or ischemic. [facility]-[id number] Procedure Note [facility], Radiology Results Incoming - 02/08/2019 5:07 PM [...] focal colitis, either infectious, inflammatory or ischemic. [facility]-[id number] Performing Organization Address City/State/Zipcode Phone Number [address] [place] [address] * CBC with platelet and differential (02/08/2019 3:25 PM CDT) Only the most recent of 5 results within the time period is included. WBC 5.44 4.50 - 11.00 k/uL [facility] RBC 3.49 (L) 4.40 - 6.00 m/uL [facility] HGB 10.2 (L) 14.0 - 18.0 g/dL [facility] HCT 31.3 (L) 41.0 - 51.0 % [facility] MCV 89.7 82.0 - 100.0 fL [facility] MCH 29.2 27.0 - 34.0 pg [facility] MCHC 32.6 31.0 - 37.0 g/dL [facility] RDW - SD 50.9 37.0 - 55.0 fL [facility] MPV 11.1 8.8 - 13.2 fL [facility] Platelet count 131 (L) 150 - 400 k/uL [facility] Neutrophils 71.0 (H) 39.0 - 69.0 % [facility] Lymphocytes 17.1 (L) 25.0 - 45.0 % [facility] Monocytes 9.6 0.0 - 10.0 % [facility] Eosinophils 1.5 0.0 - 5.0 % [facility] Basophils 0.4 0.0 - 1.0 % [facility] Immature 0.4 0.0 - 1.0 % [place] granulocytes [facility] Specimen Blood Performing Organization Address City/State/Zipcode Phone Number [facility] [place] [address] [place] [address] PATHOLOGY AND GENOMIC MEDICINE [facility] [address] [place], [place] [phone] [place] [address] * Comprehensive metabolic panel (02/08/2019 3:25 PM CDT) Only the most recent of 4 results within the time period is included. Sodium 143 135 - 148 mEq/L [facility] Potassium 3.8 3.5 - 5.0 mEq/L [facility] Chloride 105 99 - 109 mEq/L [facility] CO2 26 24 - 31 mEq/L [facility] Anion gap 12@ANIO 7 - 15 mEq/L [facility] BUN 14 8 - 24 mg/dL [facility] Creatinine 0.85 0.70 - 1.20 mg/dL [facility] Glucose 100 (H) 65 - 99 mg/dL [facility] Calcium 9.3 8.6 - 10.6 mg/dL [facility] Protein 6.2 (L) 6.3 - 8.2 g/dL [facility] Albumin 3.3 (L) 3.5 - 5.0 g/dL [facility] A/G ratio 1.1 0.7 - 3.8 [facility] Alkaline 133 (H) 30 - 115 U/L [place] phosphatase [facility] AST 28 15 - 46 U/L [facility] ALT 30 10 - 55 U/L [facility] Total bilirubin 0.5 0.2 - 1.2 mg/dL [facility] Specimen Plasma specimen Performing Organization Address City/State/Zipcode [place] [address] [place] [address] PATHOLOGY AND GENOMIC MEDICINE [facility] [address] [place] [address] HOSPITAL * Us duplex venous lower extremity [...] venous thrombosis in the right lower extremity. [facility]-[id number] Procedure Note Hm Interface, Radiology Results Incoming [...] venous thrombosis in the right lower extremity. [facility]-[id number] Performing Organization Address City/State/Zipcode Phone Number [facility] [address] [place] [address] * Us duplex arterial lower extremity (02/07/2019 4:00 PM CDT) Only the most recent of 2 results within the time period is included. Specimen Narrative Performed At EXAM: US DUPLEX ARTERIAL LOWER EXTREMITY BILATERAL [facility] HISTORY: I73.9 Peripheral vascular diseaseunspecified, I70.213 Atherosclerosis of [place] arteries of extremities with intermittent claudicationbilateral legs, [...] common femoral artery flows are diffusely monophasic. [facility]-[id number] Procedure Note Hm Interface, Radiology Results Incoming - 02/07/2019 4:50 PM CDT EXAM: US DUPLEX ARTERIAL LOWER EXTREMITY BILATERAL HISTORY: I73.9 Peripheral vascular disease unspecified, I70.213 Atherosclerosis of [place] arteries of extremities with intermittent claudication bilateral [...] common femoral artery flows are diffusely monophasic. [facility]-[id number] Performing Organization Address City/[facility]/Zipcode Phone Number [facility] [address] [place] [address] * Hybrid or fluoroscopy (01/22/2019 12:09 PM CDT) Specimen Narrative Performed At See operative report for the same day [employer] Performing Organization Address City/[facility] Phone Number [employer] [address] [place] [address] * Activated clotting time (01/22/2019 10:46 AM CDT) Only the most recent of 4 results within the time period is included. Pathologist [facility] Activated 312 (H) 96 - 152 sec [place] clotting time Comment: [facility] Meter ID: [id number] ?Consumer Educator: Name not found in RALS Specimen Performing Organization Address City/[facility]/Zipcode Phone Number [facility] [place] [address] [place] [address] PATHOLOGY AND GENOMIC MEDICINE [facility] [address] [address] * POC blood gas, arterial and lytes (01/22/2019 9:54 AM CDT) pH, arterial, 7.43 7.35 - 7.45 [facility] pCO2, arterial, 38 35 - 45 mmhg [facility] pO2, arterial, 321 (H) 80 - 90 mmHg [facility] Base excess, 1 -2 - 2 mmol/L [place] arterial, POC [facility] Bicarbonate, 25.5 21.0 - 28.0 mmol/L [place] arterial, [facility] CO2 calculated, 27 24 - 31 mmol/L [place] arterial, POC [facility] O2 saturation, 100 95 - 100 % [place] arterial, POC [facility] POC sodium 140 135 - 148 mmol/L [facility] POC potassium 3.6 3.5 - 5.0 mmol/L [facility] POC hematocrit 28 (L) 41 - 51 % [facility] POC glucose 116 (H) 65 - 99 mg/dL [facility] Ionized 1.25 1.11 - 1.32 mmol/L [place] calcium, [facility] arterial, POC HOSPITAL POC hemoglobin 9.5 (L) 14.0 - 18.0 g/dL [place] Comment: [facility] Meter ID: [id number] [facility] Consumer Educator: Fly Young Specimen Blood Performing Organization Address City/State/Zipcode Phone Number [facility] [place] [address] [address] [place] [address] PATHOLOGY AND [facility] MEDICINE [address] * Hybrid or fluoroscopy (01/22/2019 9:37 AM CDT) Specimen Narrative Performed At See operative report for the same day [employer] Performing Organization Address City/State/Zipcode Phone Number [facility] [address] [place] [address] * Partial thromboplastin time, activated (01/21/2019 1:15 PM CDT) Only the most recent of 2 results within the time period is included. PTT 38.8 (H) 23.0 - 36.0 sec [place] Comment: [facility] PTT therapeutic range for HOSPITAL unfractionated heparin is 61.0-112.0 seconds which corresponds to Anti-Xa 0.3-0.7 U/ml. Specimen Blood Performing Organization Address City/State/Zipcode Phone Number [facility] [place] [address] [address] [place] [address] PATHOLOGY AND GENOMIC MEDICINE [address] * Prothrombin time with INR (01/21/2019 1:15 PM CDT) Only the most recent of 2 results within the time period is included. Prothrombin 13.9 11.5 - 14.5 sec [place] time [facility] INR 1.1 [place] Comment: [facility] The International Normalized HOSPITAL Ratio (INR) is a therapeutic monitoring tool for patients who are stable on oral anticoagulant therapy. An INR of 2.0-3.0 is suggested for deep vein thrombosis/pulmonary embolism. Specimen Blood Performing Organization Address City/State/Zipcode Phone Number [facility] [place] [address] [facility] [place] [address] PATHOLOGY AND [place] [address] HOSPITAL * Prepare RBC (01/21/2019 1:15 PM CDT) Pathologist [facility] Product name Red Blood Cells -1, Leukored [facility] Unit number [id number] [facility] Product code [id number] [facility] Dispense status Returned to BB not transfused [facility] Blood [id number] [place] expiration date [facility] Blood type code 9500 [facility] Blood type O NEGATIVE [facility] Product name Red Blood Cells -1, Leukored [facility] Unit number [id number] [facility] Product code [id number] [facility] Dispense status Returned to BB not transfused [facility] Blood [id number] [place] expiration date [facility] Blood type code 9500 [facility] Blood type O NEGATIVE [facility] Specimen Performing Organization Address City/[facility] Phone Number [facility] DEPARTMENT [address] [place] [address] PATHOLOGY AND [facility] [place] [address] HOSPITAL * Type and screen (01/21/2019 1:15 PM CDT) Pathologist [facility] ABO grouping O [facility] Rh type NEG [facility] Antibody screen NEG [place] (gel) [facility] Specimen Blood Performing Organization Address City/State/Zipcode Phone Number [facility] DEPARTMENT [address] [place] [address] PATHOLOGY AND [place] [address] HOSPITAL * Basic metabolic panel (01/21/2019 1:15 PM CDT) Sodium 139 135 - 148 mEq/L [facility] Potassium 4.8 3.5 - 5.0 mEq/L [facility] Chloride 103 99 - 109 mEq/L [facility] CO2 23 (L) 24 - 31 mEq/L [facility] Anion gap 13@ANIO 7 - 15 mEq/L [facility] BUN 22 8 - 24 mg/dL [facility] Creatinine 0.88 0.70 - 1.20 mg/dL [facility] Glucose 137 (H) 65 - 99 mg/dL [facility] Calcium 10.0 8.6 - 10.6 mg/dL [facility] Specimen Plasma specimen Performing Organization Address City/[facility] Phone Number [facility] [place] [id number] [place] [address]. [place] [address] PATHOLOGY AND GENOMIC MEDICINE [address] * Urine culture (01/21/2019 1:00 PM CDT) Urine culture SEE COMMENTComment: [place] Bacteriuria screen negative. [facility] Specimen Performing Organization Address [facility] Phone Number [facility] DEPARTMENT [address] [place] [address] PATHOLOGY AND GENOMIC MEDICINE [address] * Urinalysis screen and microscopy, with reflex to culture (01/21/2019 12:36 PM CDT) Specimen site Clean catch [facility] Color, UA Yellow [facility] Appearance, UA Clear [facility] Specific 1.018 1.001 - 1.035 [place] gravity, UA [facility] pH, UA 6.0 5.0 - 8.5 [facility] Protein, UA 2+ (A) Negative [facility] Glucose, UA Negative Negative [facility] Ketones, UA Negative Negative [facility] Bilirubin, UA Negative Negative [facility] Blood, UA Negative Negative [facility] Nitrite, UA Negative Negative [facility] Urobilinogen, <2.0 <2.0 [facility] Leukocyte Negative Negative [place] esterase, UA [facility] WBC, UA None seen 0 - 1 /HPF [facility] RBC, UA 3 0 - 5 /HPF [facility] Bacteria, UA None seen None seen [facility] Yeast, UA None seen [facility] Yeast with None seen [place] pseudohyphae, [facility] Specimen Urine Performing Organization Address City/State/Zipcode Phone Number [facility] [place] [address] [place] [address] PATHOLOGY AND GENOMIC MEDICINE [facility] [address] [address] [place] [phone] [facility] * Bone Density (01/20/2019 11:02 AM [...] effect of treatments on patient over time. [facility]-[id number] Procedure Note Hm Interface, Radiology Results Incoming [...] effect of treatments on patient over time. [facility]-[id number] Performing Organization Address City/State/Zipcode Phone Number [facility] [address] [place] [address] * Respiratory culture (01/14/2019 8:55 AM CDT) Only the most recent of 2 results within the time period is included. Respiratory No normal oral nevaeh isolated. [place] culture isolate (A) CON[facility]CIANIST Comment: HOSPITAL Specimen Information Specimen Source: Bronchial alveolar lavage Specimen Site: MICA (Left Upper Lobe) Respiratory Pseudomonas aeruginosa [place] culture isolate Occasional CONFUCIANIST This organism is NOT a HOSPITAL carbapenemase [...] mcg/mL: Susceptible Pseudomonas aeruginosa Performing Organization Address [facility] Phone Number [facility] DEPARTMENT OF [address] [place] [address] PATHOLOGY AND GENOMIC MEDICINE [place] CONFUCIANIST[address] * Fungus smear (01/14/2019 8:55 AM CDT) Only the most recent of 2 results within the time period is included. Fungus smear No fungi observed. [place] Comment: CONFUCIANIST Specimen Information HOSPITAL Specimen Source: Bronchial alveolar lavage Specimen Site: MICA (Left Upper Lobe) Specimen Bronchial alveolar lavage - MICA (left upper lobe) Performing Organization Address [facility] Phone Number [facility] [place] [address] PATHOLOGY AND GENOMIC MEDICINE [place] CONFUCIANIST[address] * Respiratory pathogen panel (01/14/2019 8:55 AM CDT) Only the most recent of 3 results within the time period is included. Respiratory Positive for [place] pathogen panel Rhinovirus/Enterovirus [facility] Negative for all other pathogens tested: [...] MICA (left upper lobe) Performing Organization Address City/[facility] Phone Number [facility] [place] [place] [address] PATHOLOGY AND [facility] MEDICINE [place] CONFUCIANIST [address] [place] [address] * BAL cell count and differential (01/14/2019 8:55 AM CDT) Only the most recent of 2 results within the time period is included. Pathologist [facility] BAL specimen MICA BAL [facility] BAL cell count 0.055 m/mL [place] Comment: CONFUCIANIST Normal ranges: Nonsmokers: [facility] 0.007 - 0.363 Smokers: 0 - 1.31 55% viability Differential not performed due to low cellularity;GILBERT cells with occasional neutrophils identified. REVISED REPORT, Previously reported as: 55% viability (Reported 01/14/2019 21:52) Specimen Bronchial alveolar lavage - Bronchial alveolar lavage Performing Organization Address [facility] Phone Number [facility] [place] [address] PATHOLOGY AND [facility] MEDICINE [place] CONFUCIANIST[address] * AFB culture (01/14/2019 8:55 AM CDT) Only the most recent of 2 results within the time period is included. Pathologist [facility] AFB culture No growth after 6 weeks of [place] isolate incubation. CONFUCIANIST Comment: HOSPITAL Specimen Information Specimen Source: Bronchial alveolar lavage Specimen Site: MICA (Left Upper Lobe) Specimen Bronchial alveolar lavage - MICA (left upper lobe) Performing Organization Address [facility] Phone Number [facility] [place] [place] [address] PATHOLOGY AND [facility] MEDICINE [address] * Nocardia culture (01/14/2019 8:55 AM CDT) Only the most recent of 2 results within the time period is included. Nocardia No Nocardia isolated after 7 [place] culture isolate days. CONFUCIANIST Comment: HOSPITAL Specimen Information Specimen Source: Bronchial alveolar lavage Specimen Site: MICA (Left Upper Lobe) Specimen Bronchial alveolar lavage - MICA (left upper lobe) Performing Organization Address City/[facility] Phone Number [facility] DEPARTMENT OF [address] [place] [address] PATHOLOGY AND GENOMIC MEDICINE [place] CONFUCIANIST [address] [place] [address] * Legionella culture (01/14/2019 8:55 AM CDT) Only the most recent of 2 results within the time period is included. Legionella No Legionella isolated. [place] culture isolate Comment: CONFUCIANIST Specimen Information HOSPITAL Specimen Source: Bronchial alveolar lavage Specimen Site: MICA (Left Upper Lobe) Specimen Bronchial alveolar lavage - MICA (left upper lobe) Performing Organization Address [facility] Phone Number [facility] DEPARTMENT OF [address] [place] [address] PATHOLOGY AND GENOMIC MEDICINE [place] CONFUCIANIST [address] [place] [address] HOSPITAL * Gram stain (01/14/2019 8:55 AM CDT) Only the most recent of 2 results within the time period is included. Gram stain Many WBC's [place] isolate Occasional Gram positive cocci [facility]FUCIANIST in [facility] Many Gram negative rods Comment: Specimen Information Specimen Source: Bronchial alveolar lavage Specimen Site: MICA (Left Upper Lobe) Specimen Bronchial alveolar lavage - MICA (left upper lobe) Performing Organization Address [facility] Phone Number [facility] DEPARTMENT OF [address] [place] [address] PATHOLOGY AND GENOMIC MEDICINE [place] CONFUCIANIST [address] [place] [address] * AFB stain (01/14/2019 8:55 AM CDT) Only the most recent of 2 results within the time period is included. AFB stain No acid fast bacilli (AFB) [place] seen. CONFUCIANIST Comment: HOSPITAL Specimen Information Specimen Source: Bronchial alveolar lavage Specimen Site: MICA (Left Upper Lobe) Specimen Bronchial alveolar lavage - MICA (left upper lobe) Performing Organization Address [facility] Phone Number [facility] DEPARTMENT OF [address] [place] [address] PATHOLOGY AND GENOMIC MEDICINE [place] CONFUCIANIST [address] [place] [address] HOSPITAL * Fungus culture (01/14/2019 8:55 AM CDT) Only the most recent of 2 results within the time period is included. Fungus culture Addisonuld [place] isolate Unable to complete culture due CONFUCIANIST to contamination. HOSPITAL (A) Comment: Specimen Information Specimen Source: Bronchial alveolar lavage Specimen Site: MICA (Left Upper Lobe) Specimen Bronchial alveolar lavage - MICA (left upper lobe) Performing Organization Address City/[facility]/Zipcode Phone Number [facility] DEPARTMENT OF [address] [place] [address] PATHOLOGY AND GENOMIC MEDICINE [place] CONFUCIANIST [address] [place] [address] HOSPITAL * Surgical pathology request (01/14/2019 8:50 AM CDT) [facility] DEPARTMENT OF PATHOLOGY AND GENOMIC MEDICINE Surgical See link below for PDF Lab [facility] DEPARTMENT pathology Report OF PATHOLOGY report AND GENOMIC MEDICINE Result status This is Final Report for [facility] DEPARTMENT [id number] OF PATHOLOGY AND GENOMIC MEDICINE Specimen Performing Organization Address City/[facility] Phone Number [facility] [place] [address] [address] [place] [address] PATHOLOGY AND GENOMIC MEDICINE * Cytology (non-gynecological) request (01/14/2019 8:50 AM CDT) Only the most recent of 2 results within the time period is included. [facility] DEPARTMENT OF PATHOLOGY AND GENOMIC MEDICINE Cytology See link below for PDF Lab [facility] DEPARTMENT (non-gynecologi Report OF PATHOLOGY ravi) report AND GENOMIC MEDICINE Result status This is Final Report for [facility] DEPARTMENT [id number] OF PATHOLOGY AND GENOMIC MEDICINE Specimen Performing Organization Address City/[facility] Phone Number [facility] [place] [address] [facility] [place] [address] PATHOLOGY AND GENOMIC MEDICINE * XR Chest [...] be a small right basal pleural effusion. [id number] Procedure Note Interface, Radiology Results Incoming - [...] be a small right basal pleural effusion. [id number] Performing Organization Address [facility] Phone Number [facility] [address] [place] [address] * OR [place] < 1 Hour (01/14/2019 [...] performing the procedure. [id number] Performing Organization Address [facility] Phone Number [facility] [address] [place] [address] * XR Wrist 2 Vw Bilateral (01/10/2019 2:25 PM FIRE HOSE CURER) Specimen Narrative Performed At Examination: XR WRIST [...] characteristics suggest possible inflammatory arthropathy. Please correlate. [facility]-[id number] Procedure Note Interface, Radiology Results 01/10/2019 2:51 PM FIRE HOSE CURER Examination: XR WRIST 2 VW BILATERAL Clinical [...] characteristics suggest possible inflammatory arthropathy. Please correlate. [facility]-[id number] Performing Organization Address [facility] Phone Number [facility] [address] [place] [address] * XR Hands 3 Vw Bilateral (01/10/2019 2:24 PM FIRE HOSE CURER) Specimen Narrative Performed At Examination: XR HANDS [...] bilaterally but more prominent on the right. [facility]-[id number] Procedure Note Hm Interface, Radiology Results Incoming - 01/10/2019 4:53 PM FIRE HOSE CURER Examination: XR HANDS 3 VW BILATERAL Clinical history: M05.9 Rheumatoid arthritis with rheumatoid factor unspecified, M05.9 Comparison: None Impression: 1. There is no fracture or acute osseous pathology. 2. Mild periventricular osteopenia about each hand is suspicious for changes related to rheumatoid arthritis. Erosions throughout the carpus and several distal metacarpals and proximal phalanges bilaterally but more prominent on the right. [facility]-[id number] Performing Organization Address [facility] Phone Number [facility] [address] [place] [address] * XR Ankle 2 Vw Bilateral (01/10/2019 2:24 PM FIRE HOSE CURER) Specimen Narrative Performed At Examination: XR ANKLE [...] be excluded. There is no periventricular osteopenia. [facility]-[id number] Procedure Note Interface, Radiology Results Incoming - 01/10/2019 2:45 PM FIRE HOSE CURER Examination: XR ANKLE 2 VW BILATERAL Clinical [...] be excluded. There is no periventricular osteopenia. [facility]-[id number] Performing Organization Address [facility] Phone Number [facility] [address] [place] [address] * XR Foot 2 Vw Bilateral (01/10/2019 2:23 PM FIRE HOSE CURER) Specimen Narrative Performed At Examination: XR FOOT [...] identified. 2.No radiopaque foreign body is identified. [facility]-[id number] Procedure Note Interface, Radiology Results Incoming - 01/10/2019 3:15 PM FIRE HOSE CURER Examination: XR FOOT 2 VW BILATERAL Clinical [...] 2. No radiopaque foreign body is identified. [facility]-[id number] Performing Organization Address City/State/Zipcode Phone Number [facility] [address] [place] [address] * CT Chest Wo Contrast (12/20/2018 2:46 PM FIRE HOSE CURER) Specimen Narrative Performed At EXAMINATION:[facility]ST WO [facility]:J69.0 Pneumonitis due to [...] Cardiomegaly and coronary artery atherosclerosis. 3. Emphysema. [facility]-[id number] Procedure Note Interface, Radiology Results Incoming - 12/20/2018 2:59 PM FIRE HOSE CURER EXAMINATION: CT CHEST WO CONTRAST CLINICAL HISTORY: [...] Cardiomegaly and coronary artery atherosclerosis. 3. Emphysema. [facility]-[id number] Performing Organization Address City/State/Zipcode Phone Number [facility] [address] [place] [address] * XR Chest 2 Vw (11/29/2018 10:35 AM FIRE HOSE CURER) Only the most recent of 2 results within the time period is included. Specimen Narrative Performed At XR CHEST 2 [facility] CLINICAL INDICATION:J44.9 Chronic obstructive pulmonary diseaseunspecified, [...] participate in the care of your patient. [facility]-[id number] Procedure Note Interface, Radiology Results Incoming - 11/29/2018 10:44 AM FIRE HOSE CURER XR CHEST 2 VW CLINICAL INDICATION: J44.9 [...] participate in the care of your patient. [facility]-[id number] Performing Organization Address City/State/Zipcode Phone Number [facility] [address] [place] [address] * Us ankle brachial index (11/27/2018 3:45 PM FIRE HOSE CURER) Specimen Narrative Performed At [facility] Lower Extremity Arterial Physiologic Report [id number] [facility], [address], [place] [address] Pat.Name:SHIRA BANDA.ID:[id number] .Date: 11/27/2018 Refer.MD:DONALDO WILLAMS MD Exam Time: 3:31:00 PMStudy Type:Physiologic Leg DOBAge:1940,78YSex: MALE Sonogrphr: Anuja Lopez, RVTCPT - 4: 86541 Echo Event ID:[id number] Order ID:[id number] Reason for Study:Patient complains of bilateral leg [...] Radiology Results In - 12/05/2018 10:06 PM FIRE HOSE CUR[facility] Lower Extremity Arterial Physiologic Report [id number] [facility], [address], [place] [address] Pat.Name: SHIRA BANDA Pat.ID: [id number] .Date: 11/27/2018 Refer.MD: DONALDO WILLAMS MD Exam Time: 3:31:00 PM Study Type:Physiologic Leg Age: 5 1940,78Y Sex: MALE Sonogrphr: Anujaviki Lopez RVT CPT - 4: 87554 Echo Event ID:[id number] Order ID: [id number] Reason for Study:Patient complains of bilateral leg [...] Organization Address City/State/Zipcode Phone Number [facility] [address] [place] [address] * CT Head Wo Contrast (10/22/2018 11:42 PM FIRE HOSE CURER) Specimen Narrative Performed At EXAMINATION:CT HEAD WO [...] 8 mm, likely reflecting a small meningioma. [facility]-[id number] Procedure Note Hm Interface, Radiology Results Incoming - 10/22/2018 11:52 PM FIRE HOSE CURER EXAMINATION: CT HEAD WO CONTRAST CLINICAL HISTORY: [...] 8 mm, likely reflecting a small meningioma. [facility]-[id number] Performing Organization Address City/State/Zipcode Phone Number [facility] [address] [place] [address] * Influenza antigen test, reflex negative to RPP (10/22/2018 10:00 PM FIRE HOSE CURER) Influenza Negative for Influenza A/B [place] antigen antigen. [facility] Comment: HOSPITAL Specimen Information Specimen Source: Nasopharyngeal Specimen Site: Right Specimen Nasopharyngeal - Right Performing Organization Address City/[facility] Phone Number [facility] [place] [address] [facility] [place] [address] PATHOLOGY AND GENOMIC MEDICINE [address] * ECG ED Preliminary Interpretation - Not an Order (10/22/2018 9:16 PM FIRE HOSE CURER) Narrative Performed At Carolyn Shirley DO 10/23/2018 12:39 AM ECG ED Preliminary Interpretation - Not an Order Performed by: Carolyn Shirley DO Authorized by: Carolyn Shirley DO ECG reviewed by ED Physician in the absence of a director of teenage activities: yes Interpretation: Interpretation: abnormal Quality: Tracing quality:Limited by artifact Rate: ECG rate:72 ECG rate assessment: normal Rhythm: Rhythm: sinus rhythm Ectopy: Ectopy: none QRS: QRS axis:Normal QRS intervals:Wide Conduction: Conduction: abnormal Abnormal conduction: complete RBBB ST segments: ST segments:Non-specific T waves: T waves: non-specific * Smear review (10/22/2018 6:42 PM FIRE HOSE CURER) Platelet slide Nils slt decr [place] review [facility] Ovalocytes Moderate [facility] Specimen Performing Organization Address [facility] Phone Number [facility] [place] [address] [facility] [place] [address] PATHOLOGY AND GENOMIC MEDICINE [facility] [address] [place] [address] HOSPITAL * Troponin (10/22/2018 6:42 PM FIRE HOSE CURER) Troponin <0.10 0.00 - 0.10 ng/mL [place] Comment: [facility] 0.11 - 1.49 HOSPITAL ng/mlMay indicate increased risk of acute coronary syndrome. >=1.5 ng/ml Consistent with acute myocardial infarction. The diagnostic value of a single normal or non-diagnostic result is questionable.Serial samples at 2-6 hour intervals are required to rule out acute myocardial injury. Specimen Plasma specimen Performing Organization Address City/[facility] Phone Number [facility] [place] [address] PATHOLOGY AND GENOMIC MEDICINE [address] * B natriuretic peptide (10/22/2018 6:42 PM FIRE HOSE CURER) BNP 126 (H) 0 - 100 pg/mL [facility] Specimen Blood Performing Organization Address [facility] [place] [address] PATHOLOGY AND GENOMIC MEDICINE [address] * ECG 12 lead (10/22/2018 6:34 PM FIRE HOSE CURER) Ventricular 72 [facility] MUSE rate Atrial rate 72 [facility] MUSE [place] interval 154 [facility] M[facility] QRSD interval 134 [...] Specimen Narrative Performed At Performing Organization Address City/[facility] Phone Number [facility] M[address] [place] [address] * IR Lumbar Puncture by Radiology (10/07/2018 1:59 PM FIRE HOSE CURER) Specimen Narrative Performed At EXAMINATION:IR LUMBAR PUNCTURE [...] of theL3-4 disc space, by means of [id number] needle. Clear colorlessCSF was removed for laboratory analysis, as rquested. The patient tolerated the procedure well, without side effects or complications. Last fluoroscopic image was saved. Total fluoroscopy time: 43 seconds . IMPRESSION: Uneventful fluoroscopically guided lumbar puncture. [facility]-[id number] Procedure Note Hm Interface, Radiology Results Incoming - 10/08/2018 6:50 PM FIRE HOSE CURER EXAMINATION: IR LUMBAR PUNCTURE CLINICAL HISTORY: G62.9 [...] . IMPRESSION: Uneventful fluoroscopically guided lumbar puncture. [facility]-[id number] Performing Organization Address City/State/Zipcode Phone Number [facility] [address] [place] [address] * IgG synthesis rate study (10/07/2018 1:40 PM FIRE HOSE CURER) IgG albumin 0.10 0.00 - 0.23 [place] ratio, CSF [facility] IgG index, CSF 0.40 0.01 - 0.63 [facility] IgG synthetic -1.34 -9.90 - 3.30 mg/day [place] rate [facility] Q-albumin 5.02 2.50 - 9.00 [place] ratio, CSF [facility] IgG, CSF 1.85 1.00 - 3.00 mg/dL [facility] Albumin, CSF 19.07 10.00 - 30.00 mg/dL [facility] IgG 926 700 - 1,600 mg/dL [facility] Albumin, S 3,800.0 3,640.0 - 5,304.0 [place] mg/dL [facility] Specimen Serum Performing Organization Address City/State/Zipcode Phone Number [facility] DEPARTMENT OF [address] [place] [address] PATHOLOGY AND GENOMIC MEDICINE [place] CONFUCIANIST [address] [place] [address] * LDH, CSF (10/07/2018 1:40 PM FIRE HOSE CURER) Pathologist [facility] LDH, CSF 26 U/L [place] Comment: CONFUCIANIST Analysis performed on Priori Data 8000 analyzer. This is not an approved methodology for this specimen type;accuracy and clinical significance uncertain. Specimen Cerebrospinal fluid Performing Organization Address City/[facility] Phone Number [facility] DEPARTMENT OF [address] [place] [address] PATHOLOGY AND GENOMIC MEDICINE [place] CONFUCIANIST[address] * Lyme disease reflexive panel, CSF (10/07/2018 1:40 PM FIRE HOSE CURER) [facility] B. burgdorferi 0.11 <=0.99 [facility] [...] days. Test developed and characteristics determined by [facility]. See Compliance Statement B: [employer]/CS Performed by [facility], [address] [place] [address] [email or web address], Terell White MD - Lab. Director Specimen Cerebrospinal fluid Narrative Performed At [facility] TEST: B. burgdorferi Abs by ARIANA, CSF [facility] Performing Organization Address [facility] Phone Number [facility] [address] [place] [address] [facility] [address] [place] [address] * CSF cell count with differential (10/07/2018 1:40 PM FIRE HOSE CURER) Pathologist [facility] Color, CSF Colorless [facility] Appearance, CSF Clear [facility] CSF supernatant Colorless [facility] RBC, CSF 0 0 - 1 /CMM [facility] WBC, CSF 1 0 - 5 /CMM [facility] CSF mononuclear See DiffComment: CSF Diff not [facility] performed when wbc count is [facility] less than 5. [facility] Specimen Cerebrospinal fluid Performing Organization Address [facility] Hospital[facility] Phone Number [facility] [place] [address] [facility] [place] [address] PATHOLOGY AND [facility] MEDICINE [address] * VDRL, CSF screen (10/07/2018 1:40 PM FIRE HOSE CURER) Pathologist [facility] VDRL, CSF Non-reactive Non-reactive [facility] Specimen Cerebrospinal fluid Performing Organization Address City/[facility] Phone Number [facility] DEPARTMENT OF [address] [place] [address] PATHOLOGY AND [facility] MEDICINE [address] * Protein, CSF (10/07/2018 1:40 PM FIRE HOSE CURER) Pathologist [facility] Protein, CSF 37 12 - 60 mg/dL [facility] Specimen Cerebrospinal fluid Performing Organization Address [facility] Phone Number [facility] [place] [address] [place] [address]. [place] [address] PATHOLOGY AND [facility] MEDICINE [facility] [address] * Myelin basic protein (10/07/2018 1:40 PM FIRE HOSE CURER) Pathologist [facility] Myelin basic 4.19 0.00 - 5.50 ng/mL [facility] protein Comment: INTERPRETIVE INFORMATION:Myelin Basic Protein Test developed and characteristics determined by [facility]. See Compliance Statement D: [employer]/CS Performed by [facility], [address] [place] [address] [email or web address], Terell White MD - Lab. Director Specimen Cerebrospinal fluid Performing Organization Address City/State/Zipcode Phone Number [facility] [address] [place] [address] [facility] [address] [place] [address] * Glucose level, CSF (10/07/2018 1:40 PM FIRE HOSE CURER) Glucose, CSF 58 40 - 70 mg/dL [facility] Specimen Cerebrospinal fluid Performing Organization Address City/State/Zipcode Phone Number [facility] [place] [address] [place] [address] PATHOLOGY AND GENOMIC MEDICINE [facility] [address] [address] * MRI Lumbar Spine Wo Contrast (06/29/2018 10:05 AM CDT) Specimen Narrative Performed At [facility] EXAMINATION:MRI LUMBAR SPINE WO CONTRAST COMPARISON:April 03, 2017. CLINICAL HISTORY:M05.79 Rheumatoid arthritis with rheumatoid factor of multiple sites without organ or systems involvement, Z51.81 Encounter for therapeutic drug level monitoring, [id number] conservative txpersistent sx COMMENTS:Sagittal and axial MR [...] the previous study. No fracture or subluxation. [facility]-[id number] Procedure Note Interface, Radiology Results Incoming - [...] the previous study. No fracture or subluxation. [facility]-[id number] Performing Organization Address City/[facility] Phone Number [facility] [address] [place] [address] * Urinalysis, automated with microscopy (06/27/2018 12:00 AM CDT) RAKAN Beasley Comment: DIAGNOSTICS [place] * Test Not Performed. * * Improper specimen submitted.* * Please re-submit in a [place] * * yellow-top urinalysis transport * * tube. * Specimen Urine Resulting Agency Comment Performing Organization Information: Site ID: [id number] Name: [facility] Address: [address] [place] [id number] Director: Suri Sloan Performing Organization Address City/[facility] Phone Number [employer] [place] [address] [place] [address] * Sedimentation rate (06/27/2018 12:00 AM CDT) Only the most recent of 2 results within the time period is included. Sedimentation 14 < OR=20 mm/h SI[facility] - [employer] [place] Specimen Blood Resulting Agency Comment Performing Organization Information: Site ID: [id number] Name: [facility] Address: [address] [place] [id number] Director: Suri Sloan Performing Organization Address City/State/Zipcode Phone Number [employer] [address] [address] * C-reactive protein (06/27/2018 12:00 AM CDT) Only the most recent of 2 results within the time period is included. CRP 3.0 <8.0 mg/L [facility] [place] Specimen Blood Resulting Agency Comment Performing Organization Information: Site ID: [id number] Name: [facility] Address: [address] [place] [phone] Director: Suri Sloan Performing Organization Address [facility] Phone Number [employer] [address] [address] * Estimated GFR (05/23/2018 9:33 AM CDT) GFR Non Af Amer 64 mL/min/1.73 m2 [facility] DEPARTMENT OF PATHOLOGY AND GENOMIC MEDICINE GFR Af Amer 78 mL/min/1.73 m2 [facility] DEPARTMENT Comment: OF PATHOLOGY Chronic kidney disease: [...] specimen Performing Organization Address City/State/Zipcode Phone Number [facility] DEPARTMENT [place] [address] [place] [address] PATHOLOGY AND GENOMIC MEDICINE after 05/12/2018 Insurance Type Payer Benefit Subscriber ID Effective Phone Address Plan / Dates Group Medicare MEDICARE MEDICARE xxxxxxxxxxx 2003-P [facility] PART A AND resent [place] B Medicaid MEDICAID MEDICAID xxxxxxxxx 2012-P resent Advance Directives Patient has advance care planning documents on file. For more information, maegan castañeda contact: Harvey Aguirre [address] [place] [address]
[2019-05-13] MEDS: ALBUTEROL SULF 0.083% NEB SOLN 3 ML NEB NEB SCH (20:10)
[2019-05-13] MEDS: IPRATROPIUM BROMIDE 0.02% 2.5 ML NEB NEB SCH (20:10)
[2019-05-13] MEDS: AZITHROMYCIN 500MG/NS 250 ML 250 ML IV SCH (20:21)
[2019-05-13] MEDS ORDERED: AMLODIPINE BESYL5 MG PO (20:26)
[2019-05-13] MEDS ORDERED: PANTOPRAZOLE SO40 MG PO (20:26)
[2019-05-13] MEDS ORDERED: LOSARTAN POTAS100 MG PO (20:26)
[2019-05-13] MEDS ORDERED: ATORVASTATIN CA20 MG PO (20:26)
[2019-05-13] MEDS ORDERED: METHOTREXATE2.5 MG PO (20:26)
[2019-05-13] MEDS ORDERED: LYRICA100 MG PO (20:26)
[2019-05-13] MEDS ORDERED: ASPIRIN EC81 MG PO (20:26)
[2019-05-13] MEDS ORDERED: METRONIDAZOLE500 MG PO (20:27)
[2019-05-13] MEDS ORDERED: BACLOFEN10 MG PO (20:31)
[2019-05-13] MEDS ORDERED: TYLENOL # 31 EA PO (20:31)
[2019-05-13] MEDS ORDERED: ULTRAM 50MG50 MG PO (20:31)
[2019-05-13] MEDS ORDERED: LYRICA50 MG PO (20:31)
[2019-05-13] MEDS ORDERED: CIPROFLOXACIN500 MG PO (20:31)
[2019-05-13] MEDS ORDERED: LINZESS PO (20:34)
[2019-05-13] MEDS ORDERED: FOLIC ACID1 MG PO (20:34)
[2019-05-13 21:00] VITALS: BP 118/56
--- NOTE | 2019-05-13 21:10 | NUR ---
received pt from ER to room 284, AAOx3, family at the bedside, no c/o pain or discomfort, skin intact, tele #8 with pt, productive cough and audible wheezing, bed in lowest and locked position, call light in reach
[2019-05-13 21:30] VITALS: BP 119/56
[2019-05-14] VITALS (8 sets, daily range): BP systolic 119–154; BP diastolic 56–70
[2019-05-14] MEDS: IPRATROPIUM BROMIDE 0.02% 2.5 ML NEB NEB SCH ×4 (00:10→20:00)
[2019-05-14] MEDS: ALBUTEROL SULF 0.083% NEB SOLN 3 ML NEB NEB SCH ×6 (00:10→20:00)
[2019-05-14 06:04] LABS: BASOPHILS % 0.4 % (0.0-1.0); EOSINOPHILS # (AUTO) 0.1 (0.0-0.4); EOSINOPHILS % 1.6 % (0.0-6.0); HEMATOCRIT 33.9 % (38.2-49.6); HEMOGLOBIN 10.9 g/dL (14.0-18.0); LYMPHOCYTES # (AUTO) 0.9 (1.0-3.2); LYMPHOCYTES % 15.9 % (18.0-39.1); MEAN CORPUSCULAR HEMOGLOBIN 28.6 pg (28-32); MEAN CORPUSCULAR HGB CONC 32.2 g/dL (31-35); MONOCYTES # (AUTO) 0.5 (0.2-0.8); MONOCYTES % 9.7 % (4.4-11.3); PLATELET COUNT 123 x10e3/uL (140-360); RED BLOOD COUNT 3.81 x10e6/uL (4.3-5.7); RED CELL DISTRIBUTION WIDTH 16.2 % (11.7-14.4)
[2019-05-14 06:23] LABS: ANION GAP 13.5 mmol/L (8-16); CALCIUM 8.7 mg/dL (8.4-10.2); CREATININE, SERUM 1.94 mg/dL (0.72-1.25); POTASSIUM 3.5 mmol/L (3.5-5.1)
--- NOTE | 2019-05-14 07:25 | NUR ---
recd pt up in bed no distress noted,o2 [address],denies pain,productive cough
[2019-05-14] MEDS: KCL 20MEQ/.9 SOD CHL 1,000 ML IV SCH (10:00)
[2019-05-14] MEDS: CEFEPIME 1GM/NS 0.9% 50 ML 50 ML IV SCH (11:30)
[2019-05-14] MEDS ORDERED: LACTULOSE SYRUP 20 GM/30 ML UDC PO ONE (12:00)
[2019-05-14] MEDS: BENZONATATE 100 MG CAP PO PRN (13:00)
--- NOTE | 2019-05-14 13:56 | Diagnostic Imaging Report ---
EXAM: CT Chest without contrast INDICATION: Cough, query pneumonia. COMPARISON: CT chest 08/28/2013. TECHNIQUE: Chest was scanned utilizing a multidetector helical scanner from the lung apex through the level of the adrenal glands without administration of IV contrast. Lack of IV contrast limits evaluation for visceral and vascular structures. Coronal and sagittal reformations were obtained. Routine protocol was performed. RADIATION DOSE: Total DLP: 367.8 mGy*cm Dose modulation, iterative reconstruction, and/or weight based adjustment of the mA/kV was utilized to reduce the radiation dose to as low as reasonably achievable. COMPLICATIONS: None FINDINGS: LINES/ TUBES: None. LUNGS AND AIRWAYS: There are moderate predominant centrilobular emphysematous changes of the lungs. Interval increase in size of a right upper lobe spiculated pulmonary nodule, on series 3, image 19, measuring up to 1.3 cm, and now completely solid, whereas this nodule was previously groundglass and measured up to 9 mm by my measurement. There has been interval development of areas of peripheral honeycombing, for example in the right upper lobe medially on image 42 and in the lingula on image 77. There also lower lobe predominant reticular opacities. Scattered groundglass opacities in the lower lobes, for example in the right lower lobe on image 74 and left lower lobe on images 68 and 80. There is traction bronchiectasis in the lower lobes. There are scattered subpleural opacities in the right upper lobe, for example medially on image 25. Unchanged 5 mm calcified granuloma in the right upper lobe on image 49 and 5 mm partially calcified granuloma at the right apex on image 13. There is bronchiectasis with scarring/volume loss in the right middle lobe on image 70. PLEURA: Trace left pleural effusion. Interval development of the ovoid consolidative opacity along the lateral right major fissure measuring up to 2.7 x 1.6 cm on series 3, image 44. The opacity measures fluid density (-2 HU). HEART AND MEDIASTINUM: No cardiomegaly or pericardial effusion. Extensive atherosclerotic calcifications of the coronary arteries, thoracic aorta, and great vessels. Calcified mediastinal and right hilar lymph nodes. Interval increase in size of solid noncalcified mediastinal lymph nodes, including a right paratracheal lymph node, measuring up to 9 mm short axis in subcarinal lymph node, measuring up to 1.5 cm. UPPER ABDOMEN: Limited non-contrast views of the upper abdomen. Status post cholecystectomy. Scattered calcified hepatic granulomas. Subcentimeter hypodensity in the right hepatic lobe is too small to characterize, but likely represents a cyst. Fat containing apparent lesion measuring up to 9 mm in the proximal stomach near the GE junction may represent a lipoma. BONES: No acute osseous abnormality. No suspicious lytic or blastic lesions. Diffuse osteopenia. SOFT TISSUES: Unremarkable. IMPRESSION: Spiculated solid nodule in the right lung apex measuring up to 1.3 cm, previously groundglass and measuring up to 9 mm. The nodule is suspicious for indolent malignancy. Given the presence of emphysema, a biopsy is relatively higher risk. Recommend PET/CT for additional evaluation prior to potential biopsy. Interval increase in size of noncalcified mediastinal lymph nodes, which may be reactive or metastatic. These can be further evaluated on PET/CT. Ovoid consolidative opacity along the right major fissure measures fluid density and likely represents loculated fluid rather than a mass. 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 Lower lobe bronchiectasis with scattered groundglass opacities, which may be infectious or inflammatory. Follow-up chest CT is suggested in 3 months. Signed by: Dr. Hawk Hoffman MD on 05/14/2019 1:52 PM
[2019-05-14] MEDS: LACTOBACILLUS ACIDOPHILUS CAPSULE PO SCH (17:00)
--- NOTE | 2019-05-14 17:37 | NUR ---
SPOKE WITH DR FRY RE;CONSTIPATION ORDERS GIVEN
[2019-05-14] MEDS ORDERED: CITRATE OF MAGNESIA 300ML BOTTLE PO ONE (17:45)
[2019-05-14] MEDS: AZITHROMYCIN 500MG/NS 250 ML 250 ML IV SCH (21:28)
[2019-05-15] VITALS (8 sets, daily range): BP systolic 139–162; BP diastolic 65–72
[2019-05-15] MEDS: CEFEPIME 1GM/NS 0.9% 50 ML 50 ML IV SCH ×3 (00:04→21:30)
[2019-05-15] MEDS: ALBUTEROL SULF 0.083% NEB SOLN 3 ML NEB NEB SCH ×7 (00:05→19:11)
[2019-05-15] MEDS: IPRATROPIUM BROMIDE 0.02% 2.5 ML NEB NEB SCH ×4 (00:30→19:11)
[2019-05-15] MEDS: ACETAMINOPHEN 325 MG TAB PO PRN ×3 (04:18→20:49)
[2019-05-15 05:39] LABS: BASOPHILS % 0.4 % (0.0-1.0); EOSINOPHILS # (AUTO) 0.1 (0.0-0.4); EOSINOPHILS % 1.7 % (0.0-6.0); HEMATOCRIT 29.6 % (38.2-49.6); HEMOGLOBIN 9.8 g/dL (14.0-18.0); LYMPHOCYTES # (AUTO) 0.9 (1.0-3.2); LYMPHOCYTES % 16.9 % (18.0-39.1); MEAN CORPUSCULAR HEMOGLOBIN 28.7 pg (28-32); MEAN CORPUSCULAR HGB CONC 33.1 g/dL (31-35); MEAN CORPUSCULAR VOLUME 86.5 fL (81-99); MONOCYTES # (AUTO) 0.6 (0.2-0.8); MONOCYTES % 11.7 % (4.4-11.3); NEUTROPHILS # (AUTO) 3.6 (2.1-6.9); NEUTROPHILS % 69.1 % (38.7-80.0); PLATELET COUNT 132 x10e3/uL (140-360); RED BLOOD COUNT 3.42 x10e6/uL (4.3-5.7); RED CELL DISTRIBUTION WIDTH 16.7 % (11.7-14.4)
[2019-05-15 05:54] LABS: ANION GAP 11.7 mmol/L (8-16); BLOOD UREA NITROGEN 16 mg/dL (7-26); BUN/CREATININE RATIO 16 (6-25); CALCIUM 9.1 mg/dL (8.4-10.2); CARBON DIOXIDE 22 mmol/L (22-29); CHLORIDE 115 mmol/L (98-107); CREATININE, SERUM 0.97 mg/dL (0.72-1.25); EST GLOMERULAR FILTRATION RATE > 60 ML/MIN (60-); GLUCOSE 98 mg/dL (74-118); POTASSIUM 3.7 mmol/L (3.5-5.1); SODIUM 145 mmol/L (136-145)
--- NOTE | 2019-05-15 07:30 | NUR ---
pt up in room refuses assistance shoved walker away and refuses to use it
[2019-05-15] MEDS: LACTOBACILLUS ACIDOPHILUS CAPSULE PO SCH ×2 (10:15→16:35)
--- NOTE | 2019-05-15 16:39 | NUR ---
PT IN BED RESTING NO DISTRESS NOTED DENIES PAIN
--- NOTE | 2019-05-15 20:00 | NUR ---
PATIENT IS LAYING IN BED, NO RESPIRATORY DISTRESS NOTED. PATIENT IS CURRENTLY RECEIVING RESPIRATORY TREATMENT AND COMPLAINS OF BEING RESTLESS AND WANTS TO GO TO SLEEP. BED IS LOCKED AND IN LOWEST POSITION, CALL LIGHT WITHIN EASY REACH, WILL CONTINUE TO MONITOR.
[2019-05-15] MEDS: AZITHROMYCIN 500MG/NS 250 ML 250 ML IV SCH (20:10)
[2019-05-15] MEDS: BENZONATATE 100 MG CAP PO PRN (22:47)
[2019-05-16] VITALS: BP 154/61
--- NOTE | 2019-05-16 00:02 | NUR ---
Pulmonary consult [id number] Thanks.
[2019-05-16] MEDS: IPRATROPIUM BROMIDE 0.02% 2.5 ML NEB NEB SCH ×3 (00:05→11:00)
--- NOTE | 2019-05-16 00:36 | NUR ---
PATIENT REQUESTED RESPIRATORY TREATMENT BE REMOVED. NO SIGNS OF DISTRESS NOTED, WILL CONTINUE TO MONITOR.
[2019-05-16 04:00] VITALS: BP 178/74
[2019-05-16] MEDS: ALBUTEROL SULF 0.083% NEB SOLN 3 ML NEB NEB SCH ×3 (04:41→11:00)
--- NOTE | 2019-05-16 06:06 | Consultation ---
DATE OF CONSULTATION: 05/15/2019 Pulmonary Medicine Consult. PRIMARY CARE DOCTOR: Dr. Kartik Mary. HOSPITAL COVERAGE: Dr. Kevin Le. REASON FOR REFERRAL: Abnormal chest radiography. HISTORY OF PRESENT ILLNESS: Mr. Carrillo is a pleasant 79-year-old gentleman with abnormal chest radiography. The patient was actually admitted to [facility] on May 13, 2019, evening with weakness. The patient had just been seen recently by his primary care doctor for this issue. He had associated cough. He had reported hypotension at the office. Onset six days previous. As the patient was following a pattern of worsening, he came to emergency room. In the emergency room, the workup included an assessment that he has anemia. An 11 and 31 of hemoglobin and hematocrit. Albumin was 3.0. Lactic acid level was normal. Acute abdominal series showed moderate stool only. He went on to have a CT chest without contrast, which demonstrated some centrilobular emphysema [id number] amount, but there was a right upper lobe spiculated pulmonary nodule which was previously noted to be 9 mm and was now 1.3 cm in size since comparison from 2013. The patient has a few subpleural cystic changes little more prominent in the vascular area with mild traction bronchiectasis. There is some ovoid consolidative opacity that was like major fissure, 2.7 cm in size, nonspecific and also lymph nodes up to 1.5 cm in size that is increased compared to previous. A 33 mm pulmonary artery. I am consulted. The patient denies any asthma. No allergies. No chronic GERD. He says he had a bronchoscopy at [facility] few months ago, but he never got the results. PAST MEDICAL HISTORY: Hypertension, hyperlipidemia, neuropathy, BPH, prostate cancer, diverticulosis, cholecystectomy, prostatectomy. MEDICATIONS: Medication list reviewed per the chart record. He is a poor historian and therefore there is some limitation. ALLERGIES: NO KNOWN DRUG ALLERGIES. SOCIAL HISTORY: Denies chronic alcohol use, he denies drug use. He is a smoker age 16-active, 1/2 ppd. He worked numerous jobs in his life. FAMILY HISTORY: Noncontributory. REVIEW OF SYSTEMS: GENERAL: No weight changes. OPHTHALMOLOGIC: No double vision. ENT: No mouth ulcers. ENDOCRINE: No known thyroid disease. PULMONARY: No hemoptysis. CARDIAC: No recent [place]. : No blood in urine. GI: No diarrhea. DERMATOLOGIC: No rash. MUSCULOSKELETAL: There is some arthritis. Some old left injury when he was a kid that he broke his hand. NEUROLOGIC: No seizures. OBJECTIVE: VITAL SIGNS: Afebrile, vital signs stable, reviewed per the chart record. GENERAL: In no acute distress. Alert and calm in bed. HEENT: Normocephalic, atraumatic. NECK: Supple. Throat midline. LUNGS: Bilateral air entry, limited but mostly clear. CARDIOVASCULAR: S1, S2. No murmurs, rubs, or gallops. ABDOMEN: Soft, nontender. EXTREMITIES: No clubbing. No cyanosis. There is no edema. INTEGUMENT: No rash or purpura. LABS: 16 BUN, 0.97 creatinine. 22 bicarbonate. 5 white count, 30 hematocrit, and 132 platelets. IMPRESSION AND PLAN: 1. Abnormal chest radiography, mildly increased right upper lobe nodule. Nonspecific. While the acute features suggest possible malignancy due to growth of this lesion compared to previous scan that was from 2013. However given the large interval time, there is still a chance is that this is not a carcinoma. 2. 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 3. Abnormal chest radiography, mild subpleural cystic lesion under evaluation. Cannot rule out early UIP versus sporadic scarring or other lung injury. 4. Lymphadenopathy, mediastinal. 5. Other recently noted lung nodules. 6. Mild bronchiectasis early. 7. Long time smoker. 8. History of neuropathy. 9. History of prostate cancer, status post prostatectomy. 10. Hyperlipidemia. 11. acute bronchitis vs pneumonia 12. chronic bronchitis, possible cor pulmonale The patient had a bronchoscopy just over two months ago he said, but was never given the result. Bronchoscopy would have been a low yield procedure for the structural lung landmarks and abnormalities that were seen now for the most part with the exception of looking for a superimposed infection. The bronchoscopy would have been very javier to get the small peripheral lung nodule that was seated in the middle of a rather emphysematous high risk changes for pneumothorax. Bronchoscopy would be not very useful in diagnosing the possibility for early interstitial lung disease except for sarcoidosis, which does not look like sarcoidosis. Bronchoscopy would not be very useful to diagnose his COPD either. The lymph nodes in the mediastinum could be reactive and will also be hard to diagnosis with bronchoscopy, but sometimes a bronchoscopy could be done to look at lymphadenopathy. However, we will still try to get the records from that bronchoscopy given the questions that have arisen. The patient requires pulmonary function testing and CT surveillance of these lesions. The patient probably should have a PET scan of the right upper lobe nodule to see if that or any of the other nodules are highly metabolic and require *early biopsy. The patient requires continued followup of these abnormalities. He is to continue staying away from cigarettes. Thank you very much, Dr. Le and Dr. Mary for allowing me a chance to participate in care of Mr. Carrillo. Do not hesitate to contact me if I can help in any way. MD POLLO Luis/EMETERIO /[phone] MTDD
[2019-05-16] MEDS: CEFEPIME 1GM/NS 0.9% 50 ML 50 ML IV SCH ×2 (06:13→13:09)
--- NOTE | 2019-05-16 06:50 | NUR ---
PATIENT IS AWAKE AND IN STABLE CONDITION WITH NO S/S OF RESPIRATORY DISTRESS. NO PAIN VOICED. TELEMETRY APPLIED. BED ALARM APPLIED. CALL LIGHT IS WITHIN REACH, PATIENT INSTRUCTED TO CALL FOR ASSISTANCE NEEDED.
[2019-05-16 07:46] VITALS: BP 166/72
[2019-05-16] MEDS: LACTOBACILLUS ACIDOPHILUS CAPSULE PO SCH (08:16)
--- NOTE | 2019-05-16 08:59 | NUR ---
INFORMED DR. FRY OF PATIENT'S ELEVATED BP OF 166/72- AWAITING CALLBACK/ORDER.
--- NOTE | 2019-05-16 09:11 | NUR ---
RECEIVED ORDER FROM DR. FRY TO RESTART HOME MEDICATIONS: LOSARTAN AND AMLODIPINE
[2019-05-16] MEDS ORDERED: LOSARTAN POTASSIUM 100 MG TAB PO SCH (09:15)
[2019-05-16] MEDS ORDERED: AMLODIPINE BESYLATE 5 MG TAB PO SCH (09:15)
[2019-05-16 09:31] VITALS: BP 166/72
--- NOTE | 2019-05-16 10:18 | NUR ---
SPOKE WITH DR MACDONALD RE DC PLAN TRANSFER OUT OF ICU TODAY PROBABLY WILL HAVE CABG AFTER DC HOME STATES PT WILL NEED TO HAVE OP DIALYSIS SET UP CM CALLED DR MARSHALL FOR ORDERS AWAIT CALL BACK
--- NOTE | 2019-05-16 10:20 | NUR ---
PLEASE DISREGARD PREVIOUS NOTE ENTERED IN ERROR
[2019-05-16 11:27] VITALS: BP 146/61
[2019-05-16] MEDS ORDERED: CIPROFLOXACIN500 MG PO (11:33)
[2019-05-16] MEDS ORDERED: IPRATROPIU0.2 MG/1 M NEB (11:34)
[2019-05-16] MEDS ORDERED: COMPACT ULTRAS1 EACH IH (11:34)
[2019-05-16] MEDS ORDERED: ALBUTEROL2.5 MG/3 M INH (11:34)
[2019-05-16] MEDS ORDERED: PREGABALIN 50 MG CAP PO ONE (12:00)
--- NOTE | 2019-05-16 13:43 | NUR ---
HOME 02 EVAL DONE PT DOES NOT QUALIFY FOR HOME OXYGEN SATS ON RA WITH AMBULATION 95%
--- NOTE | 2019-05-16 14:36 | NUR ---
PATIENT DISCHARGE HOME- PATIENT OFF THE UNIT AT 1428 PER AMBULATION ACCOMPANIED BY RN AND DAUGHTER TO THE FRONT LOBBY. PATIENT IS IN STABLE CONDITION WITH NO S/S OF RESPIRATORY DISTRESS. NO PAIN VOICED. IV REMOVED WITH TIP INTACT. DISCHARGE TEACHING, INSTRUCTIONS, AND MEDICATIONS. ALL PERSONAL ITEMS TAKEN WITH THE PATIENT AND HIS DAUGHTER.
--- NOTE | 2019-05-17 02:46 | NUR ---
Pulmonary Medicine DATE OF ENCOUNTER: 05/16/2019 SUBJECTIVE 3 l/MIN OXYGEN NO RESP DISTRESS D/W DAUGHTER AT LENGTH D/W PATIENT AT LENGTH HE IS SLIGHTLY FORGETFUL? REVIEW OF SYSTEMS: NO headaches, no chest pain OBJECTIVE: VITAL SIGNS: vital signs stable, reviewed per the chart record. GENERAL: no acute distress. Alert and calm in bed. HEENT: Normocephalic, atraumatic. NECK: Supple. Throat midline. LUNGS: Bilateral air entry, limited but mostly clear. CARDIOVASCULAR: S1, S2. No murmurs, rubs, or gallops. ABDOMEN: Soft, nontender. EXTREMITIES: No clubbing. No cyanosis. There is no edema. INTEGUMENT: No rash or purpura. LABS: no new updates IMPRESSION AND PLAN: 1. Abnormal chest radiography, mildly enlarged right upper lobe nodule. Nonspecific. The acute features suggest possible malignancy due to small growth of this lesion and spiculations (compared to 2013). However given the large interval time, there is still a chance is that this is not a carcinoma. 2. 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 3. Abnormal chest radiography, mild subpleural cystic lesions under evaluation. Cannot rule out early UIP versus sporadic scarring or other lung injury. 4. Lymphadenopathy, mediastinal. Nonspecific. 5. Other recently noted lung nodules. 6. Mild bronchiectasis early. 7. Long time smoker, recently quit. 8. History of neuropathy. 9. History of prostate cancer, status post prostatectomy. 10. Hyperlipidemia. 11. Acute bronchitis vs pneumonia 12. Chronic bronchitis, possible cor pulmonale Abx continue, ok for PO Bronchodilators, nebulizer ordered Scant steroids, rapid wean Patient daughter states the patient had an EGD rather than a bronchoscopy-- could make more sense. I recommend to get any pulmonary records that are available for this very complex pulmonary case. Afterwards consideration for PET/CT can be made. Serial CTs and PFTs are reasonable. He is to continue staying away from cigarettes. Ok for outpatient follow up Thank you very much, Dr. Le and Dr. Mary for allowing me a chance to participate in care of Mr. Carrillo. Do not hesitate to contact me if I can help in any way.
--- NOTE | 2019-05-17 04:47 | Discharge Summary ---
PRIMARY CARE DOCTOR: Dr. Kartik Mary. FINAL DIAGNOSES: 1. Dehydration with acute renal failure, resolved. 2. Generalized weakness, resolved. 3. Possible pneumonia, status post IV antibiotics. He will go home on oral antibiotics. 4. Chronic obstructive pulmonary disease exacerbation, resolved. 5. Lung mass. 6. Thrombocytopenia, mild, stable. 7. Metabolic acidosis, resolved. EMERGENCY DEPT TECH: Dr. Ahumada of Pulmonary. PROCEDURE/STUDIES PERFORMED: Chest CT. HISTORY: Per [facility]. HOSPITAL COURSE: The patient was admitted with generalized weakness and dehydration and acute renal failure with IV fluid, this all have resolved. Initially with COPD exacerbation, much better now with nebulizer treatment. Empirically, the patient was started on IV antibiotics. CT of the chest showed a right lung apex nodule 1.3 cm, that is little bigger than 6 years ago, therefore this is likely not a malignancy. The patient will continue to follow up with his lung doctor. The patient also does have bronchiectasis on his CAT scan. The patient received cefepime antibiotics while here and also azithromycin. The patient will go home on Cipro orally to complete a course per Dr. Ahumada's recommendation. At this time, we will evaluate him for home oxygen need, if he qualifies then we will arrange. The patient was seen and examined today. It took 35 minutes total to discharge this patient including discussing with Dr. Ahumada. The patient will follow up with his PCP in two weeks. CONDITION ON DISCHARGE: Improved. DISCHARGE MEDICATIONS: Please see medication reconciliation form. MD ANANT Bravo/EMETERIO /[id number] cc: Kartik Mary
== END 2019-05-16 14:32 | disposition home or self-care (01) | DRG 190 ==
LOC: ER 16:41 → ERHOLD 19:55 → MED/SURG3 21:12
PROVIDERS: ADMIT Internal Medicine; ATTEND Internal Medicine
DX: J44.0 Chronic obstructive pulmonary disease with (acute) lower respiratory infection (principal); J15.9 Unspecified bacterial pneumonia; N17.9 Acute kidney failure, unspecified; J44.1 Chronic obstructive pulmonary disease with (acute) exacerbation; E87.6 Hypokalemia; E86.0 Dehydration; I10 Essential (primary) hypertension; E78.5 Hyperlipidemia, unspecified; Z85.46 Personal history of malignant neoplasm of prostate; G62.9 Polyneuropathy, unspecified; Z87.891 Personal history of nicotine dependence; Z82.49 Family history of ischemic heart disease and other diseases of the circulatory system; M06.9 Rheumatoid arthritis, unspecified; K57.90 Diverticulosis of intestine, part unspecified, without perforation or abscess without bleeding; R53.81 Other malaise; D69.6 Thrombocytopenia, unspecified; R91.8 Other nonspecific abnormal finding of lung field; R59.0 Localized enlarged lymph nodes; I27.81 Cor pulmonale (chronic); K59.00 Constipation, unspecified
CPT/HCPCS: 36415; 71250; 74022; 80048; 80053; 81001; 82150; 82550; 82553; 82948; 83605; 83690; 84484; 85025; 87040; 93005; 94640; 97139; 99284; J0456; J0692; J0696; J2405

== ENCOUNTER → 2019-05-29 | Outpatient (CLI) | payer MEDICARE, OTHER ==
[~2019-05-29] MED LIST changes: +ALBUTEROL2.5 MG/3 M INH; +AMLODIPINE BESYL5 MG PO; +ASPIRIN EC81 MG PO; +CIPROFLOXACIN500 MG PO; +COMPACT ULTRAS1 EACH IH; +FOLIC ACID1 MG PO; +IPRATROPIU0.2 MG/1 M NEB; +LINZESS PO; +METRONIDAZOLE500 MG PO; +TYLENOL # 31 EA PO; +ULTRAM 50MG50 MG PO
--- NOTE | 2019-05-29 11:53 | Diagnostic Imaging Report ---
Chest, 2 views, 05/29/2019. History: Pneumonia, cough. Comparison: 05/13/2019. Findings: The cardiomediastinal silhouette and pulmonary vasculature are within normal limits. There is increased patchy consolidation in the right middle lobe obscuring the right heart border. There are no acute osseous or soft tissue abnormalities. Impression: Worsening of right middle lobe pneumonia. Signed by: Rafael Anthony on 05/29/2019 11:49 AM
== END ==
LOC: RAD 10:26
PROVIDERS: ATTEND Family Medicine
DX: Z09 Encounter for follow-up examination after completed treatment for conditions other than malignant neoplasm (principal); R05 Cough; J18.9 Pneumonia, unspecified organism
CPT/HCPCS: 71046

== ENCOUNTER → 2019-10-17 | Outpatient (CLI) | payer MEDICARE ==
--- NOTE | 2019-10-17 11:40 | Diagnostic Imaging Report ---
Right upper quadrant abdominal ultrasound, 10/17/2019. History: Elevated liver enzymes. Comparison: Comparisons available for review. Discussion: Transverse and longitudinal images of the right upper quadrant of the abdomen were obtained demonstrating a liver of normal size and echogenicity measuring 4.1 cm in length. There is no evidence of a focal hepatic mass. The portal vein is patent with hepatopetal flow and is within normal limits measuring 8 mm in diameter. The biliary tree is within normal limits with the common bile duct measuring 7 mm in diameter. The bladder is surgically absent. The right kidney is normal in size and echogenicity without evidence of hydronephrosis, stones, or mass and measures 10.5 cm in length. The pancreas is not well evaluated secondary to overlying bowel gas. The abdominal aorta is within normal limits. There is no evidence of free fluid. IMPRESSION: Status post cholecystectomy, otherwise, unremarkable ultrasound of the right upper quadrant Signed by: Pablo Iglesias MD on 10/17/2019 11:37 AM
== END ==
LOC: RAD 10-14 11:47
PROVIDERS: ATTEND Family Medicine
DX: R74.8 Abnormal levels of other serum enzymes (principal)
CPT/HCPCS: 76705